=== PATIENT | male | born 1960 | race Caucasian/White ===

== ENCOUNTER 2020-04-24 06:45 | Inpatient (IN) ==
--- NOTE | 2020-04-13 14:43 | PAT Medication Instructions ---
Medication Instructions Date of Service April 13, 2020 Home Medications amlodipine 5 mg PO PM atorvastatin 20 mg PO QAM chlorthalidone 25 mg PO QAM ibuprofen 600 mg PO BID lisinopril 40 mg PO QAM ASK your surgeon for instructions ibuprofen 600 mg PO BID DO NOT take the morning of surgery lisinopril 40 mg PO QAM chlorthalidone 25 mg PO QAM Take morning of surgery With a small sip of water, OTHERWISE NOTHING TO EAT OR DRINK AFTER MIDNIGHT: atorvastatin 20 mg PO QAM Take evening before surgery amlodipine 5 mg PO PM Other Notes If you have any questions please call us at [phone] or [phone] or [phone] or [phone]
--- NOTE | 2020-04-18 09:55 | Anesthesiology Consultation ---
Date of Service April 18, 2020 Assessment & Plan (1) Encounter for pre-operative examination: Chart Review Chart Review: Acceptable Risk for Surgery (pending 04/18 Covid testing results ) and Patient seen in Pre Admission Testing Per PAT appt 04/20/20, patient denies recent travel Resides in [facility]. Works at [employer]- wears mask and social distances. Was tested in PAT today for Covid (six days prior to procedure). Pt was educated that both he and his household members need to social distances, self quarantine and wear mask in public. Teaching & Discussion Pre-Anesthesia Teaching/Discussion Notes: Instructed NPO after midnight before surgery,except medications with 15 cc of water. Medication instructions provided according to the [facility] guidelines. History Surgery Operation Date: 04/24/20 10:55 Proposed Procedures p Right Uni Compartment Knee Arthroplasty - Jonn Martínez DO Height/Weight Height: 5 ft 11 in Weight: 114.1 kg Allergies Allergy/AdvReac Type Severity Reaction Status Date / Time No Known Allergies Allergy Unverified 04/13/20 09:07 Medications Home Medications Medication Instructions Recorded Confirmed Last Taken amlodipine 5 mg PO PM 04/13/20 04/13/20 Unknown atorvastatin 20 mg PO QAM 04/13/20 04/13/20 Unknown chlorthalidone 25 mg PO QAM 04/13/20 04/13/20 Unknown ibuprofen 600 mg PO BID 04/13/20 04/13/20 Unknown lisinopril 40 mg PO QAM 04/13/20 04/13/20 Unknown Past Medical History Medical History Hyperlipidemia Hypertension Osteoarthritis Exercise / Class Metabolic Activity II 4-5 Yardwork/Stairs/Walk up hill (one flight of stairs - no chest pain or SOB ) Past Surgical History Surgical History History of partial knee replacement left History of tooth extraction Past Anesthesia History No Hx of Anesthesia Complications and No Family Hx of Anesthesia Complications History of PONV No Hx of PONV and No Hx of Motion Sickness Social History Smoking Status: Never smoker Do You Dip or Chew Tobacco: No (QUIT 10 YRS AGO OR MORE) Hx Alcohol Use: No Hx Substance Use: No substance use type: does not use Review of Systems Patient denies chest pain, shortness of breath, dyspnea on exertion, reflux, c ough, wheezing, palpitations. No hx of seizures, stroke, ME, apnea/snoring. No hx of blood clots or blood transfusions Physical Exam Vital Signs VITALS BP 121/81 P 66 TEMP 98.3 SP02 98% RESP 16 Constitutional no acute distress ENMT Mouth: no TMJ clicking Thyromental Distance: < 3.5 Finger Breadths (3.0) Mallampati Class: II Full upper denture Partial lower denture Neck + thick neck (mild ) and + limited neck extension (moderate ) Respiratory normal respiratory effort; no respiratory distress Auscultation: lungs clear to auscultation bilaterally; no wheezes Cardiovascular Rate/Rhythm: regular rate and regular rhythm Heart Sounds: no murmur Vessels: no carotid bruit Musculoskeletal Spine: no pain with cervical ROM Neurologic moves all extremities Psychiatric Orientation: alert Testing Laboratory Results 04/18/20 10:06 04/18/20 10:06 PT 10.7 Seconds (9.0-12.0) 04/18/20 10:06 INR 1.0 (0.9-1.1) 04/18/20 10:06 APTT 26.8 Seconds (21.0-31.0) 04/18/20 10:06 Blood Type A Positive 04/18/20 10:06 Antibody Screen NEGATIVE 04/18/20 10:06 Electrocardiogram Date: 04/18/20 Findings: + NSR @ (66) Chest X-Ray Date: 04/18/20 Findings: + NAD
--- NOTE | 2020-04-18 10:39 | XRay Report ---
XR chest Pre-admission PA/Lat HISTORY: Preop. COMPARISON: None. FINDINGS: The lungs are clear. Cardiac silhouette is normal in size. No pleural effusions. No pneumot horax. IMPRESSION: No acute process. ACT 112: Negative or not required by law. Electronically signed by: Jose Manuel Chauhan M.D. 04/18/2020 10:38 AM
[2020-04-18 10:54] LABS: Basophils # (auto) 0.02 K/uL (0-0.2); Basophils % (auto) 0.3 %; Eosinophils # (auto) 0.16 K/uL (0-0.5); Eosinophils % (auto) 2.2 %; Hemoglobin 14.4 g/dL (14.0-18.0); Immature Granulocytes # (auto) 0.01 K/uL (0.00-0.02); Immature Granulocytes % (auto) 0.1 %; Lymphocytes # (auto) 2.34 K/uL (1.2-3.4); Lymphocytes % (auto) 31.8 %; Mean Corpuscular Hemoglobin 30.1 pg (25-34); Mean Corpuscular Hgb Conc 33.5 g/dL (32-36); Mean Platelet Volume 9.3 fL (7.4-10.4); Monocytes # (auto) 0.49 K/uL (0.11-0.59); Monocytes % (auto) 6.7 %; Neutrophils # (auto) 4.33 K/uL (1.4-6.5); Neutrophils % (auto) 58.9 %; Platelet Count 250 K/uL (130-400); RDW Coefficient of Variation 13.2 % (11.5-14.5); RDW Standard Deviation 43.7 fL (36.4-46.3); Red Blood Count 4.78 M/uL (4.7-6.1); White Blood Count 7.35 K/uL (4.8-10.8)
[2020-04-18 11:01] LABS: BUN Creatinine Ratio 20.9 (10-20); Calcium 9.7 mg/dl (8.5-10.1); Creatinine Clr Calc Pharmacy 90.3 ml/min; Est GFR (African American) 80.6; Est GFR (Non-African American) 69.5; Potassium 3.9 mmol/L (3.5-5.1)
[2020-04-18 11:07] LABS: Partial Thromboplastin Time 26.8 Seconds (21.0-31.0); Prothrombin Time 10.7 Seconds (9.0-12.0)
--- NOTE | 2020-04-18 13:52 | Electrocardiogram Report ---
Test Reason : Blood Pressure : / mmHG Vent. Rate : 066 BPM Atrial Rate : 066 BPM P-R Int : 186 ms QRS Dur : 100 ms QT Int : 426 ms P-R-T Axes : 045 027 027 degrees QTc Int : 446 ms Normal sinus rhythm Normal ECG When compared with ECG of 08-OCT-2016 12:25, No significant change was found Confirmed by Juan Luis Nicholas ([id number]) on 04/18/2020 1:51:53 PM Referred By: Jonn Martínez Confirmed By:Juan Luis Nicholas
--- NOTE | 2020-04-23 16:40 | History & Physical Report ---
Date of Service April 23, 2020 Assessment & Plan (1) Osteoarthritis of knee: We will proceed with a right partial knee replacement surgery. Postoperatively he will be started on aspirin for DVT prophylaxis and kept overnight in the hospital for postoperative medical management. He plans to go to outpatient physical therapy in [place] in [place] upon discharge. Nestor is a low risk for joint placement surgery without any major comorbidities. Present on Admission?: Yes History of Present Illness Chief Complaint: Primary osteoarthritis of the right knee Primary Care Provider: Zaida Leroy PA-C Nestor is a pleasant 59-year-old male who is been dealing with chronic increasing right knee pain. X-rays and clinical examination have been diagnostic for primary osteoarthritis of the medial compartment of the right knee. After failing conservative treatment, he has elected to proceed with a right partial knee replacement surgery. He does have a history of a left unicompartmental knee arthroplasty done by myself in September 2016. He has done very well with that. Allergies Allergy/AdvReac Type Severity Reaction Status Date / Time No Known Allergies Allergy Unverified 04/13/20 09:07 Home Medications Home Medications Medication Instructions Recorded Confirmed Type amlodipine 5 mg PO PM 04/13/20 04/13/20 History atorvastatin 20 mg PO QAM 04/13/20 04/13/20 History chlorthalidone 25 mg PO QAM 04/13/20 04/13/20 History ibuprofen 600 mg PO BID 04/13/20 04/13/20 History lisinopril 40 mg PO QAM 04/13/20 04/13/20 History Past Med/Surg History Medical History Hyperlipidemia Hypertension Osteoarthritis Surgical History History of partial knee replacement left History of tooth extraction Social History Preferred Language: Sinhala Communication Ability: Effective [employer] Required: No Beliefs That Will Affect Care: None Current Living Situation: Spouse Feels Safe at Home: Yes Smoking Status: Never smoker Second Hand Exposure: No ; Hx Alcohol Use: No Hx Substance Use: No Review of Systems Review of Systems: All systems reviewed & are unremarkable except as noted in HPI & below Physical Exam Constitutional: WD/WN, vitals as above Eyes: PERRL, conjunctivae normal, anicteric sclerae ENMT: external ear and nose normal, oropharynx normal Neck: trachea midline, no thyromegaly Respiratory: normal respiratory effort Cardiovascular: RRR, no murmur, no edema Gastrointestinal (Abdomen): normal bowel sounds, soft, nontender, no hepatosplenomegaly Musculoskeletal: On physical examination of the right knee there is a trace effusion. There is near full range of motion and no evidence of instability. There is significant tenderness palpation along the medial and lateral joint lines and over the distal femoral condyles. Psychiatric: A+Ox3, euthymic affect Results & Data Results & Data ([facility]) Diagnostic Findings Radiographs of the right knee demonstrate advanced osteoarthritis with joint space narrowing osteophyte formation and [id number] articulation. PG Care Time/CCT Total # of Minutes Spent Total Time Spent with Patient: Total time spent is greater than 50% in coordination of care (as documented) at patient's floor/unit and/or counseling patient: Coding Level of Care Code 88739 Initial Inpt Care Lvl 3 Diagnoses Osteoarthritis of knee M17.10
[~2020-04-24 06:45] MED LIST: ACETAMINOPHEN 500 MG TAB PO SCH; CEFAZOLIN 2000MG 2,000 MG/15 ML SYR IV SCH; FAMOTIDINE 20 MG TAB PO SCH; GABAPENTIN 600 MG DOSE PO SCH; LR 15ML/HR IV SCH; LR 500ML BOLUS, THEN 15ML/HR IV SCH; LR 60ML/HR IV SCH; ROPIVACAINE 0.5% HCL/PF 150 MG, BUPIVACAINE 0.5% MPF 30 ML, EPINEPHrine 30MG/30ML (OR U... INSTIL SCH; TRANEXAMIC ACID 1,000 MG **IV Intra-op IV SCH; TRANEXAMIC ACID 1,000 MG **IV Pre-op IV SCH; dexAMETHasone 4 MG TAB PO SCH
--- NOTE | 2020-04-24 07:20 | History & Physical Bridge Note ---
Date of Service April 24, 2020 History & Physical Bridge Note I have examined the patient, reviewed the History & Physical and in the interval since the performance of the History & Physical I have noted the following changes of clinical significance: no changes noted
[2020-04-24] MEDS ORDERED: ATROPINE SULFATE 0.1 MG/ML 10ML SYR IV PRN (07:25)
[2020-04-24] MEDS ORDERED: fentaNYL citrate 100 MCG/2 ML VIAL IV PRN (07:25)
[2020-04-24] MEDS ORDERED: ePHEDrine sulfate 50 MG/ML AMP IV PRN (07:25)
[2020-04-24] MEDS ORDERED: ONDANSETRON INJ 2 MG/ML 2 ML VIAL IV PRN ×2 (07:25→12:39)
[2020-04-24] MEDS ORDERED: BUPIVACAINE 0.5 % 5 MG/1 ML PF 10ML VIAL ONE (07:28)
[2020-04-24] MEDS ORDERED: BUPIVACAINE 0.25% 30 ML VIAL ONE (07:28)
[2020-04-24] MEDS ORDERED: MIDAZOLAM HCL 1 MG/ML 2ML VIAL ONE ×3 (07:57→09:54)
[2020-04-24] MEDS ORDERED: LIDOCAINE HCL 2% 2 ML VIAL/AMP(20MG/ML) INFIL ONE (07:57)
[2020-04-24] MEDS ORDERED: PROPOFOL IV EMULSION 10 MG/ML 20 ML VIAL IV ONE (07:57)
[2020-04-24] MEDS ORDERED: ORTHO JOINT ANESTHETIC ONE (09:01)
--- NOTE | 2020-04-24 10:51 | Operative Report ---
PG Post Operative Report Pre & Post Diagnosis Operation Date: 04/24/20 08:50 Pre-Op Diagnosis: Right Knee Degenerative Joint Disease Post-Op Diagnosis: Right Knee Degenerative Joint Disease I identified the patient and participated in the time-out.: Yes Procedure Operation Date: 04/24/20 08:50 Actual Procedures p Right Knee Uni Compartment Arthroplasty(Right) - Jonn Martínez DO Surgeon Jonn Martínez DO Singing Messenger Jonn Betancourt PAC Estimated Blood Loss 10 Findings Consistent with Post-Op Diagnosis Specimens Right femoral and tibial bone Complications none Disposition Disposition: Recovery Room Indications Nestor is a pleasant 59-year-old male who is been dealing with bilateral knee pain. He had medial compartmental arthritis of both knees. He underwent a left unicompartmental knee arthroplasty in 2016. He is done extremely well with that . He has now elected proceed with a right unicompartmental knee arthroplasty. Description of Procedure Implants used: I used a [employer]omet Lyman unicompartmental knee arthroplasty system with a size medium femur, C tibia, and a size 4 mm mobile polyethylene bearing. All components were cemented in place with Palacos G cement. Nestor arrived [facility] for the above procedure. He was seen in the preoperative holding area and the operative extremity was identified and signed. He was given a preoperative antibiotic, TXA, a spinal anesthetic and an adductor nerve block. He was taken back to the operating room and laid on the table in the supine position. He was given basic sedation. The operative knee was then prepped and draped in sterile fashion. A timeout was done, and the patient and the operative extremity was properly identified. A midline incision was made from the superior pole of the patella down to the tibial tubercle. Dissection was taken down to the extensor mechanism and a subvastus arthrotomy was used. The medial retinaculum was released and a small portion of the fat pad was excised. The knee was then placed in a leg jarrett and the intra-articular portion of the knee was exposed. The medial meniscus was removed. The ACL was intact and the lateral compartment was inspected and there were no signs of any chondral damage. Several sizing spoons were used to measure the distal femur and it measured to be a size medium.The tibial saw guide was then placed externally over the shaft of the tibia. A 4 mm G clamp was used to clamp the spoon with the external tibial saw guide. 2 pins were placed. A reciprocating saw was then used to resect the tibia just medial to the apex of the medial tibial spine. An oscillating saw was then used to resect the tibial plateau. The tibial bone was then removed. The tibia measured to be a size C. The trochlea was then exposed. A 4 mm drill was sent down the center of the femoral canal followed by a long intramedullary fernandez. A line was then marked in the center of the distal medial femoral condyle. A femoral drill guide was then placed and the IM link was used to connect the intramedullary fernandez to the femoral drill guide. A 4 mm drill was used in the upper pole of the drill guide and a 6 mm drill was used in the lower pole of the drill guide. The drill guide was then removed. A posterior resection guide was then placed in the posterior femur was resected. A 0 spigot was then impacted in the 6 mm drill hole. The distal femur was then milled and osteophytes were removed. Femoral and tibial trials were then placed. A size 4 feeler gauge was used to measure the flexion gap in 100 of flexion. A size 2 feeler gauge was used to measure the extension gap in full extension. Trials were then removed and a size 2 spigot was then impacted in the 6 mm hole. The distal femur was once again milled. The anti- impingement guide was then impacted into place and an anterior mill was used to remove anterior bone and create clearance for the front of the bearing. The tibial template was then placed and the keel cut saw was used to resect for the keeled component. Trial components were then placed along with a size 4 mobile- bearing. The knee was brought through a full range of motion and felt to be stable. All trial components were then removed. Surrounding soft tissues were then injected with 50 cc of a pain control cocktail. Drill holes were placed in the distal femur to help with cement integration. The femoral and tibial components were then cemented in place with Palacos G cement. The size 4 mobile-bearing was then snapped into place. The knee was brought through a full range of motion and felt to be stable. The joint was then irrigated with normal saline solution. The tourniquet was deflated and hemostasis was obtained. The extensor mechanism was then closed with #1 Vicryl suture. Skin was closed with 2-0 Vicryl, 3-0V lock suture, and jalen. A compressive dressing was then placed. He was then transferred to a hospital bed and taken to the postanesthesia care unit in stable condition. He tolerated the procedure well. Jonn Betancourt PA-C, was present for the entire procedure. He was critical for patient positioning, prepping, draping, retraction exposure, wound closure and application of sterile dressing. I attest to the content of the Intraoperative Record and any orders documented therein. Any exceptions are noted below.
--- NOTE | 2020-04-24 11:45 | XRay Report ---
XR knee RT 1 or 2V routine CLINICAL HISTORY: Surgical Post Op COMPARISON: None. DISCUSSION: Anatomic alignment post medial joint compartment arthroplasty. Expected postoperative sof t tissue change. IMPRESSION: Anatomic alignment post medial joint compartment arthroplasty. ACT 112: Negative or not required by law. The above report was generated using voice recognition software. It may contain grammatical, syntax or spelling errors. Electronically signed by: Malachi Lockett M.D. 04/24/2020 11:44 AM
[2020-04-24] MEDS ORDERED: bisacodyL 10 MG SUPP PR PRN (12:39)
[2020-04-24] MEDS ORDERED: HYDROmorphone INJ 0.5 MG/0.5 ML SYR IV PRN (12:39)
[2020-04-24] MEDS ORDERED: NALOXONE HCL 0.4 MG/1 ML VIAL/CARP IV PRN (12:39)
[2020-04-24] MEDS ORDERED: OXYCODONE HCL IR 5 MG TAB (IMMEDIATE RELEASE) PO PRN (12:39)
[2020-04-24] MEDS ORDERED: MAGNESIUM HYDROXIDE SUSP 30 ML UDC PO PRN (12:39)
[2020-04-24] MEDS ORDERED: METOCLOPRAMIDE HCL INJ 5 MG/ML 2 ML VIAL IV PRN (12:39)
[2020-04-24] MEDS ORDERED: SODIUM CHLORIDE 0.9% 1000ML 1,000 ML IV SCH (12:39)
[2020-04-24] MEDS: KETOROLAC 30 MG/ML VIAL IV SCH ×2 (14:20→19:13)
[2020-04-24] MEDS: ACETAMINOPHEN 500 MG TAB PO SCH (16:00)
[2020-04-24] MEDS: CEFAZOLIN 2000MG 2,000 MG/15 ML SYR IV SCH (16:04)
--- NOTE | 2020-04-24 16:07 | Anesthesiology Progress Note ---
Date of Service April 24, 2020 Anesthesia Post Procedure Vital Signs Vital Signs: Temp Pulse Pulse Resp BP BP Pulse Ox 04/24/20 15:52 36.4 C L 74 16 131/79 95 04/24/20 14:35 74 16 142/88 H 95 04/24/20 13:37 73 16 155/98 H 97 04/24/20 13:09 36.4 C L 76 16 142/87 H 96 04/24/20 13:07 36.7 C 68 16 121/77 98 04/24/20 12:32 36.8 C 04/24/20 12:15 71 18 126/81 96 04/24/20 12:00 72 19 133/80 96 04/24/20 11:45 36.4 C L 70 12 128/81 97 04/24/20 11:35 72 14 133/81 95 04/24/20 11:25 77 15 131/77 97 04/24/20 11:16 36.7 C 84 16 127/78 97 04/24/20 07:33 172/98 H 04/24/20 07:08 37 C 82 20 159/109 H 98 Transfer of Care Handoff Completed per policy Notes Mental Status: alert / awake / arousable and participated in evaluation Patient Amnestic to Procedure: Yes Nausea / Vomiting: adequately controlled Pain: adequately controlled Airway Patency, RR, SpO2: stable & adequate BP & HR: stable & adequate Hydration State: stable & adequate Neuraxial Anesthesia: was administered and sensory block is resolving Anesthetic Complications: no major complications apparent and Pt Satisfied with anesthetic care
[2020-04-24] MEDS: DOCUSATE SODIUM 100 MG CAP PO SCH (20:14)
[2020-04-24] MEDS: ASPIRIN 81 MG ECTAB PO SCH (20:15)
[2020-04-24] MEDS ORDERED: SENNA 8.6 MG TAB PO SCH (21:00)
[2020-04-25] MEDS: CEFAZOLIN 2000MG 2,000 MG/15 ML SYR IV SCH (01:11)
[2020-04-25] MEDS: KETOROLAC 30 MG/ML VIAL IV SCH ×2 (01:11→06:10)
[2020-04-25 06:09] LABS: Hematocrit (blood only) 41.3 % (42-52); Hemoglobin 13.9 g/dL (14.0-18.0); Mean Corpuscular Hemoglobin 29.7 pg (25-34); Mean Corpuscular Hgb Conc 33.7 g/dL (32-36); Mean Corpuscular Volume 88.2 fL (80-100); Mean Platelet Volume 9.2 fL (7.4-10.4); Platelet Count 266 K/uL (130-400); RDW Standard Deviation 41.3 fL (36.4-46.3); Red Blood Count 4.68 M/uL (4.7-6.1); White Blood Count 19.21 K/uL (4.8-10.8)
[2020-04-25] MEDS: ACETAMINOPHEN 500 MG TAB PO SCH (06:09)
[2020-04-25 06:37] LABS: Calcium 9.1 mg/dl (8.5-10.1); Creatinine Clr Calc Pharmacy 85.3 ml/min; Est GFR (African American) 75.8; Est GFR (Non-African American) 65.4; Potassium 3.3 mmol/L (3.5-5.1)
--- NOTE | 2020-04-25 06:54 | Orthopedic Progress Note ---
Date of Service April 25, 2020 Assessment & Plan (1) Status post right partial knee replacement: Overall he is doing very well. Is not having much pain in the right knee. He will be seen by physical therapy today for ambulation and range of motion exercises. He is on aspirin for DVT prophylaxis. He can be discharged home later today. He will follow-up with orthopedics in 2 weeks. Present on Admission?: Yes Thaddeus Baez was seen and examined at bedside this morning. Overall he is doing very well. Is not having much pain in the right knee. He has been up and ambulating. He has no complaints. Physical Exam Musculoskeletal: On physical examination of the right knee, the dressing is clean and dry. He is sitting at bedside with his knee flexed to about 95 degrees. He is neurovascularly intact. Results & Data ([facility]) Vital Signs (Past 12 Hours) Vital Signs Temp Pulse Resp BP BP Pulse Ox 04/25/20 04:20 36.5 C 86 20 126/79 98 04/24/20 23:47 36.4 C L 71 20 144/78 H 96 04/24/20 20:19 36.5 C 67 16 139/82 97 Laboratory Results H & H 04/18/20 04/25/20 Range/Units 10:06 05:49 Hgb 14.4 13.9 L (14.0-18.0) g/dL Hct 43.0 41.3 L (42-52) % Coagulation 04/18/20 Range/Units 10:06 INR 1.0 (0.9-1.1) Diagnostic Findings Postoperative x-rays of the right knee show the prosthesis to be in anatomic alignment without any evidence of fracture, dislocation, or loosening. PG Care Time/CCT Total # of Minutes Spent Total Time Spent with Patient: Total time spent is greater than 50% in coordination of care (as documented) at patient's floor/unit and/or counseling patient: Coding Level of Care Code None Diagnoses Status post right partial knee replacement Z96.651
--- NOTE | 2020-04-25 06:55 | Discharge Summary ---
Date of Service April 25, 2020 Admission HPI Per Admitting Provider Nestor is a pleasant 59-year-old male who is been dealing with chronic increasing right knee pain. X-rays and clinical examination have been diagnostic for primary osteoarthritis of the medial compartment of the right k nee. After failing conservative treatment, he has elected to proceed with a right partial knee replacement surgery. He does have a history of a left unicompartmental knee arthroplasty done by myself in September 2016. He has done very well with that. Principal Diagnosis Right partial knee replacement Discharge Data Allergies Allergy/AdvReac Type Severity Reaction Status Date / Time No Known Allergies Allergy Verified 04/24/20 07:04 Consultations 04/24/20 12:39 Consult Case Management - Discharge Planning Routine Procedures Performed Operation Date: 04/24/20 08:50 Actual Procedures p Right Knee Uni Compartment Arthroplasty(Right) - Jonn Martínez DO Ordered Studies 04/24/20 05:00 US - OR guided needle placemen Routine Hospital Course (1) Status post right partial knee replacement: On April 24, 2020 Nestor arrived at [facility] and underwent a right partial knee replacement without complication. He had a spinal anesthetic. Postoperatively he was started on aspirin for DVT prophylaxis and transferred to the general orthopedic floors. His hospital course was uneventful. On postop day #1 his H&H was stable and his pain was well cont rolled. He was able to participate well with physical therapy doing ambulation and range of motion exercises. He was then discharged home. He will follow-up with orthopedics in 2 weeks. Total Time Total Time Spent Total Time Spent (In Minutes): 20 Discharge Plan Discharge Items Patient Disposition: Home - Home Health Services Reason For Visit: Right Knee Degenerative Joint Disease Discharge Diagnosis: Right partial knee replacement Activity: As commented below Non-emergency contact: Surgeon Call non-emergency contact if: your wound has increased redness and your wound has increased drainage Follow-up/Referrals: Zaida Leroy PA-C [Primary Care Provider] - Diet: Regular Addtl Attending Provider Instructions: Activity and Therapy Recommendations: * If you are using [facility] then therapy will be provided at your home until they feel you have accomplished all of your goals. * If you are using [facility] then Physical Therapy will be provided until they feel you are ready to start Outpatient Physical Therapy. * If you are not using home therapy then Outpatient Physical Therapy should start about 3-5 days from your day of surgery. Therapy will last about 6-10 weeks * It is important not to put a pillow under your knee when you are relaxing or sleeping. It is just as important to make sure you are getting your knee perfectly straight as it is to regain your knee bend. * You were shown a series of exercises in the hospital. Do these exercises three times each day including the exercises you were shown in physical therapy. * Get up and walk several times each day. For the first four weeks, try not to stand or walk for more than one hour at a time. If you do stand or walk for more than one hour, you will not hurt anything, but your leg will likely swell. * As you feel comfortable, you may change from the walker or crutches to a cane and then to independent walking. Medications: * Narcotic You will likely be sent home from the hospital with a prescription for the narcotic pain medication that worked best throughout your stay. * Aspirin Most patients will be required to take Aspirin 81mg twice a day for 6 weeks after surgery. This is obtained [id number] and a prescription is not necessary. * Other medications may be prescribed for specific circumstances. If you have any questions, please call the office at . * Resume previous home medications unless otherwise instructed TEDs/Elastic Stockings: The white elastic stockings help limit swelling and prevent blood clots from forming in your legs.~ The more you wear them, the more they work. Wear them for six weeks. Dressing Care: Leave the Silverlon dressing on for 7 days. After 7 days you may remove the dressing. IF the incision is not draining then you may leave the jalen open to air. If there is a little bit of drainage or if the jalen are getting stuck on your clothing then cover the incision with a dry dressing. The jalen will be removed at your 2 week follow-up appointment. Showering: You may shower with the Silverlon dressing in place. Do not scrub or soak the dressing. Pat it dry. After 7 days you may remove the Silverlon dressing and shower with the jalen exposed. Let the soapy shower water run over the jalen and pat them dry. Do not scrub or soak the incision. Things To Watch For: * Drainage from the incision site that occurs more than one week after your surgery. * Increased redness at the incision site. * Fever above 102 degrees Fahrenheit. * Unusual chest pain or shortness of breath. * Call [facility] at with any of the above problems Follow-Up Visit: Follow-up with Dr. Martínez's PA (Jonn Betancourt) 2-3 weeks after your day of surgery. He will remove your jalen and answer any questions. If you have any additional questions or concerns, Dr Martínez is usually in the office at the same time and will be available An appointment was probably scheduled when you signed-up for surgery in the office. If you have any questions call Office Instructions: More detailed instructions as well as Frequently Asked Questions were provided in a folder by our office when you signed-up for surgery. Please review these instructions when you get home. If you have any further questions or concerns, please feel free to call the office at [phone] Pending Studies at Discharge: No Stand-Alone Forms: My [facility], Smoking Cessation Medications and DC Order Prescriptions: New oxycodone 5 mg Tablet 5 mg PO Q4H PRN (Reason: pain) Qty: 30 RF: 0 aspirin 81 mg Tablet,Delayed Release (Dr/Ec) 81 mg PO BID 42 Days Qty: 0 RF: 0 Continued atorvastatin 20 mg Tablet 20 mg PO QAM RF: 0 chlorthalidone 25 mg Tablet 25 mg PO QAM RF: 0 amlodipine 5 mg Tablet 5 mg PO DAILY RF: 0 ibuprofen 200 mg Tablet 600 mg PO BID RF: 0 lisinopril 40 mg Tablet 40 mg PO QAM RF: 0 Discharge Orders: Discharge Order (Routine); Ordered 04/25/20 Ordered By: Jonn Martínez Admission Data Admit Date/Time: 04/24/20 11:19 Attending Provider: Jonn Martínez Admit Provider: Jonn Martínez Primary Care Provider: Zaida Leroy Coding Level of Care Code D/C Day Management <30 mins Diagnoses Status post right partial knee replacement Z96.651
[2020-04-25] MEDS: DOCUSATE SODIUM 100 MG CAP PO SCH (07:38)
[2020-04-25] MEDS: ASPIRIN 81 MG ECTAB PO SCH (07:38)
[2020-04-25] MEDS ORDERED: dexAMETHasone 4 MG TAB PO SCH (08:00)
--- NOTE | 2020-04-25 08:40 | Anesthesiology Progress Note ---
Date of Service April 25, 2020 Anesthesia Post Procedure Vital Signs Vital Signs: Temp Pulse Pulse Resp BP BP Pulse Ox 04/25/20 07:51 36.5 C 68 16 149/94 H 99 04/25/20 04:20 36.5 C 86 20 126/79 98 04/24/20 23:47 36.4 C L 71 20 144/78 H 96 04/24/20 20:19 36.5 C 67 16 139/82 97 04/24/20 15:52 36.4 C L 74 16 131/79 95 04/24/20 14:35 74 16 142/88 H 95 04/24/20 13:37 73 16 155/98 H 97 04/24/20 13:09 36.4 C L 76 16 142/87 H 96 04/24/20 13:07 36.7 C 68 16 121/77 98 04/24/20 12:32 36.8 C 04/24/20 12:15 71 18 126/81 96 04/24/20 12:00 72 19 133/80 96 04/24/20 11:45 36.4 C L 70 12 128/81 97 04/24/20 11:35 72 14 133/81 95 04/24/20 11:25 77 15 131/77 97 04/24/20 11:16 36.7 C 84 16 127/78 97 Notes Mental Status: alert / awake / arousable and participated in evaluation Patient Amnestic to Procedure: Yes Nausea / Vomiting: adequately controlled Pain: adequately controlled Airway Patency, RR, SpO2: stable & adequate BP & HR: stable & adequate Hydration State: stable & adequate Neuraxial Anesthesia: was administered and sensory block resolved Anesthetic Complications: no major complications apparent and Pt Satisfied with anesthetic care
[2020-04-25] MEDS ORDERED: AMLODIPINE BESYLATE 5 MG TAB PO SCH (09:00)
[2020-04-25] MEDS ORDERED: MULTIVITAMIN TAB PO SCH (09:00)
[2020-04-25] MEDS ORDERED: lisinopriL 40 MG TAB PO SCH (09:00)
[2020-04-25] MEDS ORDERED: CHLORTHALIDONE 25 MG TAB PO SCH (09:00)
[2020-04-25] MEDS ORDERED: ATORVASTATIN 20 MG TAB PO SCH (09:00)
== END 2020-04-25 10:32 | disposition home health service (06) | DRG 470 ==
LOC: ASU 06:45 → 3E 11:19

== ENCOUNTER 2020-06-06 05:29 | Inpatient (IN) ==
[2020-06-06] MEDS ORDERED: SODIUM CHLORIDE 0.9% 1000ML 1,000 ML IV ONE (05:45)
--- NOTE | 2020-06-06 05:50 | Emergency Department Note ---
History of Present Illness General Chief complaint: Abdominal Pain Stated complaint: SEVERE ABDOMINAL PAIN Time Seen by Provider: 06/06/20 05:37 Source: patient Mode of arrival: ambulatory Limitations: no limitations History of Present Illness Provider complaint: abdominal pain Onset (ago): hour(s) 1 Location: abdomen Radiation: back Severity: severe Pain Consistency: + constant Maximum Pain Intensity: 10 Current Pain Intensity: 10 Quality: + sharp Relieved By: + none Exacerbated By: + movement Associated symptoms: + fever/chills, + loss of appetite and + nausea/vomiting; no chest pain Treatments prior to arrival: none This is a 59-year-old male who presents with the abrupt onset of abdominal pain at 4 AM that woke him up out of sleep. Patient states the pain is severe, generalized, and radiates into his back. Patient feels chilled with it, yet is sweating, and feels nauseated but has not vomited. Patient states he began having some mild abdominal pain last week which did not go away so he called his family doctor. Patient was seen by his family doctor on Thursday and instructed to take colonoscopy prep to "clear him out" believing that his abdominal pain was secondary to constipation. Patient states he did have a watery stool earlier today, denies noting any blood. Patient states he has never had abdominal pain this severe. Patient denies any recent illness. Patient is 6 weeks postop from a right knee replacement. Patient states he has been using 2 baby aspirin a day as well as using some occasional ibuprofen. Patient denies noting any black or bloody stools. Denies any history of kidney dysfunction. Patient states he does take multiple medications for high blood pressure, denies any other cardiac conditions. Patient denies any accompanying chest pain or trouble breathing despite being obviously tachypneic. Patient brought back immediately from triage due to concern for his acuity due to his unwell appearance. Pt seen during a time of high acuity and national emergency pandemic while wea ring PPE. Home Medications Home Medications Medication Instructions Recorded Confirmed Type amlodipine 5 mg PO DAILY 04/13/20 06/06/20 History atorvastatin 20 mg PO QAM 04/13/20 06/06/20 History chlorthalidone 25 mg PO QAM 04/13/20 06/06/20 History ibuprofen 600 mg PO BID 04/13/20 06/06/20 History lisinopril 40 mg PO QAM 04/13/20 06/06/20 History Allergies Allergy/AdvReac Type Severity Reaction Status Date / Time No Known Allergies Allergy Verified 06/05/20 14:45 Past Med/Surg History Medical History (Updated 06/07/20 @ 03:39 by Romina Car DO) Acute renal failure (ARF) Diverticulitis Hyperlipidemia Hypertension Hypokalemia Osteoarthritis Pneumoperitoneum Surgical History (Updated 06/06/20 @ 12:58 by Mandie Mendoza RN) History of partial knee replacement left History of tooth extraction S/P colon resection (06/06/20) Exploratory Laparotomy, Abdominal wash out, Sigmoid Colon Resection and Priya procedure Dr. 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 and A total of 10 systems reviewed and were otherwise negative Physical Exam Vital Signs Vital Signs - 24 hr 06/06/20 05:32 06/06/20 05:39 06/06/20 06:12 Temperature 36.9 C Temperature Source Oral Pulse Rate 134 H 115 H Pulse Rate [Apical] Pulse Rate [Left Finger] Pulse Rate from SpO2 Sensor 115 H Pulse Rhythm [Apical] Pulse Rhythm [Left Finger] Pulse Strength [Left Finger] Respiratory Rate 30 H 32 H 23 Respiratory Effort / Characteristics Spontaneous Respiratory Depth Normal Respiratory Pattern Blood Pressure 107/75 119/75 Blood Pressure [Left Arm] Blood Pressure [Right Arm] Blood Pressure Mean 84 93 Blood Pressure Mean [Left Arm] Blood Pressure Mean [Right Arm] Blood Pressure Position [Left Arm] Blood Pressure Position [Right Arm] Pulse Oximetry 97 Oxygen Delivery Method Nasal Cannula Oxygen Flow Rate 4 Sepsis Recent Fever Within 48 Hours No Sepsis New/Unexplained Change in Mental Status No Sepsis Action Taken by Nursing No Action Required 06/06/20 06:30 06/06/20 07:00 06/06/20 07:30 Temperature Temperature Source Pulse Rate 113 H 116 H 111 H Pulse Rate [Apical] Pulse Rate [Left Finger] Pulse Rate from SpO2 Sensor 119 H 117 H 111 H Pulse Rhythm [Apical] Pulse Rhythm [Left Finger] Pulse Strength [Left Finger] Respiratory Rate 19 17 17 Respiratory Effort / Characteristics Respiratory Depth Respiratory Pattern Blood Pressure 116/70 124/74 101/66 Blood Pressure [Left Arm] Blood Pressure [Right Arm] Blood Pressure Mean 80 86 73 Blood Pressure Mean [Left Arm] Blood Pressure Mean [Right Arm] Blood Pressure Position [Left Arm] Blood Pressure Position [Right Arm] Pulse Oximetry 98 99 97 Oxygen Delivery Method Nasal Cannula Oxygen Flow Rate 4 4 Sepsis Recent Fever Within 48 Hours Sepsis New/Unexplained Change in Mental Status Sepsis Action Taken by Nursing 06/06/20 07:40 06/06/20 07:45 06/06/20 07:52 Temperature Temperature Source Pulse Rate 112 H 113 H 112 H Pulse Rate [Apical] Pulse Rate [Left Finger] Pulse Rate from SpO2 Sensor 112 H 112 H Pulse Rhythm [Apical] Pulse Rhythm [Left Finger] Pulse Strength [Left Finger] Respiratory Rate 13 18 17 Respiratory Effort / Characteristics Respiratory Depth Respiratory Pattern Blood Pressure 111/67 110/68 100/65 Blood Pressure [Left Arm] Blood Pressure [Right Arm] Blood Pressure Mean 72 78 81 Blood Pressure Mean [Left Arm] Blood Pressure Mean [Right Arm] Blood Pressure Position [Left Arm] Blood Pressure Position [Right Arm] Pulse Oximetry 96 96 97 Oxygen Delivery Method Oxygen Flow Rate Sepsis Recent Fever Within 48 Hours Sepsis New/Unexplained Change in Mental Status Sepsis Action Taken by Nursing 06/06/20 07:56 06/06/20 08:13 06/06/20 13:19 Temperature 37.2 C 36.8 C Temperature Source Oral Temporal Artery Scan Pulse Rate Pulse Rate [Apical] 104 H Pulse Rate [Left Finger] 112 H Pulse Rate from SpO2 Sensor Pulse Rhythm [Apical] Regular Pulse Rhythm [Left Finger] Regular Pulse Strength [Left Finger] Normal Respiratory Rate 18 20 Respiratory Effort / Characteristics Non-Labored Spontaneous Non-Labored Spontaneous Respiratory Depth Normal Normal Respiratory Pattern Regular Regular Blood Pressure Blood Pressure [Left Arm] 115/81 Blood Pressure [Right Arm] 107/63 Blood Pressure Mean Blood Pressure Mean [Left Arm] 92 Blood Pressure Mean [Right Arm] 77 Blood Pressure Position [Left Arm] Lying Blood Pressure Position [Right Arm] Lying Pulse Oximetry 96 99 Oxygen Delivery Method Room Air Nasal Cannula Oxymask Oxygen Flow Rate 4 10 Sepsis Recent Fever Within 48 Hours Sepsis New/Unexplained Change in Mental Status Sepsis Action Taken by Nursing GENERAL: alert, ill appearing, well nourished, severe distress, non-toxic, ashen in appearance with cyanotic distal extremities, cannot remain still due to pain EYE EXAM: normal conjunctiva, PERRL and EOM's grossly intact OROPHARYNX: no exudate, no erythema, lips, buccal mucosa, and tongue normal and mucous membranes are moist NECK: supple, no nuchal rigidity, no adenopathy, non-tender LUNGS: Clear to auscultation. Normal chest wall mechanics, no w/r/r, tachypneic, cannot obtain pulse ox HEART: no murmurs, S1 normal and S2 normal, tachycardia, appears to be sinus tach at 130 ABDOMEN: abdomen soft, generalized abdominal discomfort with palpation, patient actively splinting, normo-active bowel sounds, no masses. BACK: Back is symmetrical on inspection and there is no deformity, no midline tenderness, no CVA tenderness. SKIN: no rashes and no bruising UPPER EXTREMITIES: upper extremities are grossly normal. FROM, nml pulses b/l. Radial pulses palpable bilaterally, delayed cap refill due to nail bed cyanosis LOWER EXTREMITIES: No pitting edema. FROM, nml pulses b/l. Healing incision noted to right knee, no joint effusion, no distal edema NEURO EXAM: Normal sensorium, cranial nerves II-XII grossly intact, normal speech, no gross weakness of arms, no gross weakness of legs. Gross sensation intact. Course Course 0545: After my initial assessment agreed the ultrasound machine given patient's poor appearance and my high concern for his acuity and attempted to evaluate his aorta at bedside, this could not be visualized due to the amount of splinting patient had with any palpation against his abdomen, in addition to bowel gas. I did briefly get a look at the patient's gallbladder which did not show any obvious cholelithiasis, and no evidence of fluid in Morison's pouch to suggest hemoperitoneum. Images seen were suboptimal given patient continued to move throughout the exam, will send patient immediately to CT. Patient denies any history of kidney problems. 0557: Labs obtain, IV line started, patient heading to CT. Patient still tachycardic, tachypneic, pain slightly improved after fentanyl. 0608: Patient states pain slightly improved after fentanyl although still very uncomfortable. Patient is still tachycardic. Pulse ox finally able to be obtained and is in the 90s, patient is still slightly tachypneic. 0632: Case discussed with Dr. Lockett, radiology. 0640: Discussed with Dr. Corea. 0645: Pt and updated on results and plan. 0647: Dr. Corea now at bedside. 0704: Dr. Corea states he will plan on taking the patient to the operating room. He will send his PA down to add orders and perform a history and physical. 0750: Vital signs stable, patient still mildly tachycardic, tachypnea has improved and patient states his pain is improved with additional pain medication. IV Zosyn was given and is completed. Administered Medications Acetaminophen (Acetaminophen 1000 Mg/100 Ml Iv) 1,000 mg IV Q8H LOYD Stop: 06/09/20 21:59 Last Admin: 06/06/20 21:58 Dose: 1,000 mg Documented by: [id number] Heparin Sodium (Porcine) (Heparin Sod 5,000 Unit/0.5 Ml Vial) 5,000 units SQ Q8 LOYD Stop: 07/06/20 21:59 Last Admin: 06/06/20 21:58 Dose: 5,000 units Documented by: [id number] Cosigned by: [id number] Lactated Ringer's (Lr) 1,000 mls @ 150 mls/hr IV .Q6H40M LOYD Stop: 07/06/20 15:58 Last Admin: 06/07/20 02:03 Dose: 150 mls/hr Documented by: [id number] Infusion: 06/07/20 02:03 Dose: 150 mls/hr Documented by: [id number] Admin: 06/06/20 19:22 Dose: 150 mls/hr Documented by: [id number] Infusion: 06/06/20 19:22 Dose: 150 mls/hr Documented by: [id number] Admin: 06/06/20 16:23 Dose: 150 mls/hr Documented by: [id number] Piperacillin Sod/Tazobactam (Sod 4.5 gm/ Dextrose) 120 mls @ 30 mls/hr IV Q8H LOYD; Protocol Stop: 06/16/20 21:59 Last Infusion: 06/07/20 02:01 Dose: 0 mls/hr Documented by: [id number] Admin: 06/06/20 21:58 Dose: 30 mls/hr Documented by: [id number] Pantoprazole Sodium 40 mg/ (Syringe) 10 mls @ 5 mls/min IV DAILY@1100 LOYD Stop: 07/06/20 16:44 Last Admin: 06/06/20 19:47 Dose: 5 mls/min Documented by: [id number] Morphine Sulfate (Morphine Sulfate 4 Mg/Ml 1 Ml Carp\\Vial) 4 mg IV Q2H PRN PRN Reason: Pain Stop: 06/20/20 15:58 Last Admin: 06/07/20 00:18 Dose: 4 mg Documented by: [id number] Admin: 06/06/20 22:04 Dose: 4 mg Documented by: [id number] Admin: 06/06/20 19:47 Dose: 4 mg Documented by: [id number] Admin: 06/06/20 16:23 Dose: 4 mg Documented by: [id number] Discontinued Medications Acetaminophen (Acetaminophen 1000 Mg/100 Ml Iv) Confirm Administered Dose 1,000 mg IV .STK-MED ONE Stop: 06/06/20 14:13 Last Admin: 06/06/20 15:20 Dose: Not Given Documented by: [id number] Acetaminophen (Acetaminophen 1000 Mg/100 Ml Iv) 1,000 mg IV ONCE ONE Stop: 06/06/20 14:14 Last Admin: 06/06/20 14:14 Dose: 1,000 mg Documented by: [id number] Bacitracin (Bacitracin Inj 50,000 Unit Vial) Confirm Administered Dose 50,000 units .ROUTE .STK-MED ONE Stop: 06/06/20 14:28 Last Admin: 06/06/20 16:01 Dose: Not Given Documented by: [id number] Bupivacaine HCl (Bupivacaine 0.5 % 5 Mg/1 Ml Mpf 30ml Vial) Confirm Administered Dose 30 ml .ROUTE .STK-MED ONE Stop: 06/06/20 14:29 Last Admin: 06/06/20 16:01 Dose: Not Given Documented by: [id number] Fentanyl Citrate (Fentanyl Citrate 100 Mcg/2 Ml Vial) 100 mcg IV Q15M PRN PRN Reason: Pain Stop: 06/20/20 05:44 Last Admin: 06/06/20 07:51 Dose: 100 mcg Documented by: [id number] Admin: 06/06/20 06:38 Dose: 100 mcg Documented by: [id number] Admin: 06/06/20 06:05 Dose: 100 mcg Documented by: [id number] Fentanyl Citrate (Fentanyl Citrate 100 Mcg/2 Ml Vial) 25 mcg IV NOW ONE Stop: 06/06/20 09:26 Last Admin: 06/06/20 09:31 Dose: 25 mcg Documented by: [id number] Fentanyl Citrate (Fentanyl Citrate 100 Mcg/2 Ml Vial) 25 mcg IV Q5M PRN PRN Reason: PACU Use Only-Pain Stop: 06/06/20 21:00 Last Admin: 06/06/20 13:48 Dose: 25 mcg Documented by: [id number] Admin: 06/06/20 13:43 Dose: 25 mcg Documented by: [id number] Admin: 06/06/20 13:38 Dose: 25 mcg Documented by: [id number] Admin: 06/06/20 13:33 Dose: 25 mcg Documented by: [id number] Hydromorphone HCl (Hydromorphone Inj 1 Mg/Ml Syringe) 0.25 mg IV Q5M PRN PRN Reason: PACU Use Only-Pain Stop: 06/06/20 21:00 Last Admin: 06/06/20 14:38 Dose: 0.25 mg Documented by: [id number] Admin: 06/06/20 14:32 Dose: 0.25 mg Documented by: [id number] Admin: 06/06/20 14:25 Dose: 0.25 mg Documented by: [id number] Admin: 06/06/20 14:15 Dose: 0.25 mg Documented by: [id number] Admin: 06/06/20 14:08 Dose: 0.25 mg Documented by: [id number] Admin: 06/06/20 14:03 Dose: 0.25 mg Documented by: [id number] Admin: 06/06/20 13:58 Dose: 0.25 mg Documented by: [id number] Admin: 06/06/20 13:53 Dose: 0.25 mg Documented by: [id number] Sodium Chloride (Nss 1000ml) 1,000 mls @ 999 mls/hr IV .Q1H1M ONE Stop: 06/06/20 06:45 Last Infusion: 06/06/20 07:30 Dose: 0 mls/hr Documented by: [id number] Admin: 06/06/20 06:05 Dose: 999 mls/hr Documented by: [id number] Pantoprazole Sodium 40 mg/ (Syringe) 10 mls @ 5 mls/min IV NOW ONE Stop: 06/06/20 06:00 Last Admin: 06/06/20 06:38 Dose: 5 mls/min Documented by: [id number] Piperacillin Sod/Tazobactam Sod (Zosyn) 4.5 gm in 120 mls @ 240 mls/hr IV NOW ONE Stop: 06/06/20 07:02 Last Infusion: 06/06/20 07:30 Dose: 0 mls/hr Documented by: [id number] Admin: 06/06/20 06:38 Dose: 240 mls/hr Documented by: [id number] Potassium Chloride 10 meq/ (Sodium Chloride) 1,005 mls @ 200 mls/hr IV .Q5H2M LOYD Stop: 07/06/20 06:59 Last Admin: 06/06/20 15:19 Dose: Not Given Documented by: [id number] Infusion: 06/06/20 15:19 Dose: 0 mls/hr Documented by: [id number] Admin: 06/06/20 07:12 Dose: 200 mls/hr Documented by: [id number] Potassium Chloride (K Galen / Wtr) 10 meq in 100 mls @ 100 mls/hr IV Q1H LOYD Stop: 06/06/20 12:14 Last Infusion: 06/06/20 16:06 Dose: 0 mls/hr Documented by: [id number] Admin: 06/06/20 10:29 Dose: 200 mls/hr Documented by: [id number] Infusion: 06/06/20 10:29 Dose: 0 mls/hr Documented by: [id number] Admin: 06/06/20 09:56 Dose: 200 mls/hr Documented by: [id number] Infusion: 06/06/20 09:55 Dose: 0 mls/hr Documented by: [id number] Admin: 06/06/20 09:20 Dose: 200 mls/hr Documented by: [id number] Infusion: 06/06/20 09:20 Dose: 0 mls/hr Documented by: [id number] Admin: 06/06/20 08:27 Dose: 100 mls/hr Documented by: [id number] Lactated Ringer's (Lr) 1,000 mls @ 999 mls/hr IV .Q1H1M ONE Stop: 06/06/20 10:45 Last Infusion: 06/06/20 16:06 Dose: 0 mls/hr Documented by: [id number] Admin: 06/06/20 09:45 Dose: 999 mls/hr Documented by: [id number] Piperacillin Sod/Tazobactam (Sod 4.5 gm/ Dextrose) 120 mls @ 200 mls/hr IV NOW ONE; Protocol Stop: 06/06/20 16:50 Last Infusion: 06/06/20 17:20 Dose: 0 mls/hr Documented by: [id number] Admin: 06/06/20 16:26 Dose: 200 mls/hr Documented by: [id number] Potassium Chloride (K Galen / Wtr) 10 meq in 100 mls @ 100 mls/hr IV Q1H LOYD Stop: 07/06/20 18:44 Last Admin: 06/07/20 01:54 Dose: Not Given Documented by: [id number] Infusion: 06/07/20 01:52 Dose: 0 mls/hr Documented by: [id number] Admin: 06/07/20 00:39 Dose: 100 mls/hr Documented by: [id number] Infusion: 06/07/20 00:39 Dose: 100 mls/hr Documented by: [id number] Admin: 06/06/20 23:39 Dose: 100 mls/hr Documented by: [id number] Infusion: 06/06/20 23:39 Dose: 100 mls/hr Documented by: [id number] Admin: 06/06/20 22:39 Dose: 100 mls/hr Documented by: [id number] Infusion: 06/06/20 22:39 Dose: 100 mls/hr Documented by: [id number] Admin: 06/06/20 21:39 Dose: 100 mls/hr Documented by: [id number] Infusion: 06/06/20 21:39 Dose: 100 mls/hr Documented by: [id number] Admin: 06/06/20 20:39 Dose: 100 mls/hr Documented by: [id number] Infusion: 06/06/20 20:39 Dose: 100 mls/hr Documented by: [id number] Admin: 06/06/20 19:39 Dose: 100 mls/hr Documented by: [id number] Ioversol (Optiray 320 125ml) 125 ml IV ONCE ONE Stop: 06/06/20 05:56 Last Admin: 06/06/20 05:55 Dose: 119 ml Documented by: [id number] Critical Care Time Critical Care Time: Yes Total Critical Care Time: 51 Critical care of 51 min performed to assess and manage high likelihood of life- threatening sepsis and pneumoperitoneum, involving labs and imaging performed with assessment to evaluate sepsis diagnosis with frequent reassessment. This time includes bedside time, treatment discussions with patient/famil y/consultants, documentation time and excludes procedure time. Medical Decision Making Differential Diagnosis Differential diagnoses includes but is not limited to gastritis, peptic ulcer disease, GERD, gallbladder disease, pancreatitis, small bowel obstruction, acute coronary syndrome, pericarditis, ischemic bowel, irritable bowel disease, irritable bowel syndrome, appendicitis, diverticulitis, malignancy, hernia, urin jordyn tract infection, torsion, [/ectopic (if female)], perforation, trauma, infectious. Medical Records Attestation: I reviewed the patient's medical records. Home Medications Current Medication List: was personally reviewed by me Laboratory Data Attestation: I reviewed the patient's lab results. Result diagrams: 06/06/20 16:54 06/06/20 16:54 Lab Results 06/06/20 06/06/20 06/06/20 Range/Units 05:54 05:55 05:55 WBC 19.45 H (4.8-10.8) K/uL RBC 4.84 (4.7-6.1) M/uL Hgb 14.4 (14.0-18.0) g/dL POC Hgb 16.0 (14.0-18.0) g/dl Hct 42.5 (42-52) % POC Hct 47 (42-52) % MCV 87.8 (80-100) fL MCH 29.8 (25-34) pg MCHC 33.9 (32-36) g/dL RDW Std Deviation 43.7 (36.4-46.3) fL RDW Coeff of Veronique 13.5 (11.5-14.5) % Plt Count 369 (130-400) K/uL MPV 9.0 (7.4-10.4) fL Immature Gran % (Auto) 0.6 % Neut % (Auto) 81.2 % Lymph % (Auto) 14.2 % [place] % (Auto) 3.4 % Eos % (Auto) 0.4 % Baso % (Auto) 0.2 % Neut # (Auto) 15.81 H (1.4-6.5) K/uL Lymph # (Auto) 2.76 (1.2-3.4) K/uL [place] # (Auto) 0.67 H (0.11-0.59) K/uL Eos # (Auto) 0.07 (0-0.5) K/uL Baso # (Auto) 0.03 (0-0.2) K/uL Immature Gran # (Auto) 0.11 H (0.00-0.02) K/uL PT 11.4 (9.0-12.0) Seconds INR 1.1 (0.9-1.1) POC Sodium 140 (135-144) mmol/L Sodium (136-145) mmol/L POC Potassium 2.2 L* (3.3-5.0) mmol/L Potassium (3.5-5.1) mmol/L POC Chloride 97 L (101-112) mmol/L Chloride (98-107) mmol/L Carbon Dioxide (21-32) mmol/L POC Total CO2 23 L (24-31) mmol/L Anion Gap (3-11) POC Anion Gap 22.0 (16-25) mmol/L POC BUN 45 H (7-18) mg/dl BUN (7-18) mg/dl Creatinine (0.6-1.4) mg/dl POC Creatinine 3.6 H (0.6-1.3) mg/dl Est Cr Clr Drug Dosing Est GFR ( Amer) Est GFR (Non-Af Amer) BUN/Creatinine Ratio (10-20) Glucose (70-99) mg/dl POC Glucose (other) 174 H (70-99) mg/dl Lactate (0.4-2.0) mmol/L Calcium (8.5-10.1) mg/dl POC Ioniz Calcium Julio Cesar 1.16 (1.12-1.32) mmol/l Phosphorus (2.5-4.9) mg/dl Magnesium (1.8-2.4) mg/dl Total Bilirubin (0.2-1) mg/dl AST (15-37) U/L ALT (12-78) U/L Alkaline Phosphatase (45-117) U/L Troponin I (0-0.045) ng/ml Total Protein (6.4-8.2) gm/dl Albumin (3.4-5.0) gm/dl Globulin (2.5-4.0) gm/dl Albumin/Globulin Ratio (0.9-2) Lipase (73-393) U/L Blood Type Antibody Screen 06/06/20 06/06/20 06/06/20 Range/Units 05:55 05:55 05:55 WBC (4.8-10.8) K/uL RBC (4.7-6.1) M/uL Hgb (14.0-18.0) g/dL POC Hgb (14.0-18.0) g/dl Hct (42-52) % POC Hct (42-52) % MCV (80-100) fL MCH (25-34) pg MCHC (32-36) g/dL RDW Std Deviation (36.4-46.3) fL RDW Coeff of Veronique (11.5-14.5) % Plt Count (130-400) K/uL MPV (7.4-10.4) fL Immature Gran % (Auto) % Neut % (Auto) % Lymph % (Auto) % [place] % (Auto) % Eos % (Auto) % Baso % (Auto) % Neut # (Auto) (1.4-6.5) K/uL Lymph # (Auto) (1.2-3.4) K/uL [place] # (Auto) (0.11-0.59) K/uL Eos # (Auto) (0-0.5) K/uL Baso # (Auto) (0-0.2) K/uL Immature Gran # (Auto) (0.00-0.02) K/uL PT (9.0-12.0) Seconds INR (0.9-1.1) POC Sodium (135-144) mmol/L Sodium 136 (136-145) mmol/L POC Potassium (3.3-5.0) mmol/L Potassium 2.2 L* (3.5-5.1) mmol/L POC Chloride (101-112) mmol/L Chloride 98 (98-107) mmol/L Carbon Dioxide 23 (21-32) mmol/L POC Total CO2 (24-31) mmol/L Anion Gap 15.0 H (3-11) POC Anion Gap (16-25) mmol/L POC BUN (7-18) mg/dl BUN 49 H (7-18) mg/dl Creatinine 3.59 H (0.6-1.4) mg/dl POC Creatinine (0.6-1.3) mg/dl Est Cr Clr Drug Dosing Not Reportable Est GFR ( Amer) 20.6 Est GFR (Non-Af Amer) 17.7 BUN/Creatinine Ratio 13.5 (10-20) Glucose 176 H (70-99) mg/dl POC Glucose (other) (70-99) mg/dl Lactate 6.9 H* (0.4-2.0) mmol/L Calcium 9.6 (8.5-10.1) mg/dl POC Ioniz Calcium Julio Cesar (1.12-1.32) mmol/l Phosphorus 5.9 H (2.5-4.9) mg/dl Magnesium 2.4 (1.8-2.4) mg/dl Total Bilirubin 0.5 (0.2-1) mg/dl AST 16 (15-37) U/L ALT 33 (12-78) U/L Alkaline Phosphatase 121 H (45-117) U/L Troponin I < 0.015 (0-0.045) ng/ml Total Protein 8.6 H (6.4-8.2) gm/dl Albumin 3.3 L (3.4-5.0) gm/dl Globulin 5.3 H (2.5-4.0) gm/dl Albumin/Globulin Ratio 0.6 L (0.9-2) Lipase 92 (73-393) U/L Blood Type Antibody Screen 06/06/20 06/06/20 06/06/20 Range/Units 09:07 09:30 10:07 WBC (4.8-10.8) K/uL RBC (4.7-6.1) M/uL Hgb (14.0-18.0) g/dL POC Hgb 10.5 L (14.0-18.0) g/dl Hct (42-52) % POC Hct 31 L (42-52) % MCV (80-100) fL MCH (25-34) pg MCHC (32-36) g/dL RDW Std Deviation (36.4-46.3) fL RDW Coeff of Veronique (11.5-14.5) % Plt Count (130-400) K/uL MPV (7.4-10.4) fL Immature Gran % (Auto) % Neut % (Auto) % Lymph % (Auto) % [place] % (Auto) % Eos % (Auto) % Baso % (Auto) % Neut # (Auto) (1.4-6.5) K/uL Lymph # (Auto) (1.2-3.4) K/uL [place] # (Auto) (0.11-0.59) K/uL Eos # (Auto) (0-0.5) K/uL Baso # (Auto) (0-0.2) K/uL Immature Gran # (Auto) (0.00-0.02) K/uL PT (9.0-12.0) Seconds INR (0.9-1.1) POC Sodium 139 (135-144) mmol/L Sodium (136-145) mmol/L POC Potassium 2.6 L (3.3-5.0) mmol/L Potassium (3.5-5.1) mmol/L POC Chloride 102 (101-112) mmol/L Chloride (98-107) mmol/L Carbon Dioxide (21-32) mmol/L POC Total CO2 21 L (24-31) mmol/L Anion Gap (3-11) POC Anion Gap 19.0 (16-25) mmol/L POC BUN 36 H (7-18) mg/dl BUN (7-18) mg/dl Creatinine (0.6-1.4) mg/dl POC Creatinine 2.7 H (0.6-1.3) mg/dl Est Cr Clr Drug Dosing Est GFR ( Amer) Est GFR (Non-Af Amer) BUN/Creatinine Ratio (10-20) Glucose (70-99) mg/dl POC Glucose (other) 131 H (70-99) mg/dl Lactate 3.1 H* (0.4-2.0) mmol/L Calcium (8.5-10.1) mg/dl POC Ioniz Calcium Julio Cesar 1.18 (1.12-1.32) mmol/l Phosphorus (2.5-4.9) mg/dl Magnesium (1.8-2.4) mg/dl Total Bilirubin (0.2-1) mg/dl AST (15-37) U/L ALT (12-78) U/L Alkaline Phosphatase (45-117) U/L Troponin I (0-0.045) ng/ml Total Protein (6.4-8.2) gm/dl Albumin (3.4-5.0) gm/dl Globulin (2.5-4.0) gm/dl Albumin/Globulin Ratio (0.9-2) Lipase (73-393) U/L Blood Type A Positive Antibody Screen NEGATIVE 06/06/20 Range/Units 10:24 WBC (4.8-10.8) K/uL RBC (4.7-6.1) M/uL Hgb (14.0-18.0) g/dL POC Hgb (14.0-18.0) g/dl Hct (42-52) % POC Hct (42-52) % MCV (80-100) fL MCH (25-34) pg MCHC (32-36) g/dL RDW Std Deviation (36.4-46.3) fL RDW Coeff of Veronique (11.5-14.5) % Plt Count (130-400) K/uL MPV (7.4-10.4) fL Immature Gran % (Auto) % Neut % (Auto) % Lymph % (Auto) % [place] % (Auto) % Eos % (Auto) % Baso % (Auto) % Neut # (Auto) (1.4-6.5) K/uL Lymph # (Auto) (1.2-3.4) K/uL [place] # (Auto) (0.11-0.59) K/uL Eos # (Auto) (0-0.5) K/uL Baso # (Auto) (0-0.2) K/uL Immature Gran # (Auto) (0.00-0.02) K/uL PT (9.0-12.0) Seconds INR (0.9-1.1) POC Sodium (135-144) mmol/L Sodium (136-145) mmol/L POC Potassium (3.3-5.0) mmol/L Potassium 2.8 L D (3.5-5.1) mmol/L POC Chloride (101-112) mmol/L Chloride (98-107) mmol/L Carbon Dioxide (21-32) mmol/L POC Total CO2 (24-31) mmol/L Anion Gap (3-11) POC Anion Gap (16-25) mmol/L POC BUN (7-18) mg/dl BUN (7-18) mg/dl Creatinine (0.6-1.4) mg/dl POC Creatinine (0.6-1.3) mg/dl Est Cr Clr Drug Dosing Est GFR ( Amer) Est GFR (Non-Af Amer) BUN/Creatinine Ratio (10-20) Glucose (70-99) mg/dl POC Glucose (other) (70-99) mg/dl Lactate (0.4-2.0) mmol/L Calcium (8.5-10.1) mg/dl POC Ioniz Calcium Julio Cesar (1.12-1.32) mmol/l Phosphorus (2.5-4.9) mg/dl Magnesium (1.8-2.4) mg/dl Total Bilirubin (0.2-1) mg/dl AST (15-37) U/L ALT (12-78) U/L Alkaline Phosphatase (45-117) U/L Troponin I (0-0.045) ng/ml Total Protein (6.4-8.2) gm/dl Albumin (3.4-5.0) gm/dl Globulin (2.5-4.0) gm/dl Albumin/Globulin Ratio (0.9-2) Lipase (73-393) U/L Blood Type Antibody Screen Imaging Data Radiologist's Impression: CT angio chest dissec wo/w con CT DOSE: HISTORY: Pain abd pain into back TECHNIQUE: Multiaxial CT images of the chest, abdomen, and pelvis were performed both before and after the intravenous administration of contrast to evaluate the aorta. Maximal intensity projection images were also obtained. A dose lowering technique was utilized adhering to the principles of ALARA. COMPARISON STUDY: None. FINDINGS: The thoracic aorta shows no evidence for aneurysm or dissection. The pulmonary vasculature enhances appropriately. There are findings of mild bibasilar atelectasis. Lungs otherwise appear clear. Limited evaluation the upper abdomen shows free intraperitoneal air IMPRESSION: 1. Normal thoracic aorta. 2. No evidence for pulmonary embolus. 3. Free intraperitoneal air within the abdomen 4. This report was phoned to Dr. car in the emergency room ACT 112: Negative or not required by law. The above report was generated using voice recognition software. It may contain grammatical, syntax or spelling errors. Electronically signed by: Malachi Lockett M.D. 06/06/2020 6:34 AM Study: CT abdomen and pelvis angiogram HISTORY: Pain. FINDINGS: The arterial structures of the abdomen and pelvis show considerable atherosclerotic changes throughout. There is mild narrowing of the origin of the celiac axis and superior mesenteric artery. High degree of stenotic change is not felt to be present. Free air is noted within the abdomen as well as pelvis. Fatty infiltration of liver is noted. Pancreas and spleen are unremarkable. Kidneys demonstrate several cysts. Negative for hydronephrosis. There are findings of acute diverticulitis involving the mid to distal descending colon as well as proximal to mid sigmoid. Pericolonic infiltrative change is present. Medial to the descending colon is an air-containing phlegmon is-type structure measuring 5.7 x 6.0 cm. This appears represent a local perforation and possibly early phlegmon formation. No well-defined drainable abscess or collection is a not identified by percutaneous status. Chronic lower sigmoid diverticulosis is present. There is a small amount of free fluid within the pelvic cul-de-sac. The appendix is normal. The bowel pattern is nonobstructive. IMPRESSION: 1. Free intraperitoneal air involving the abdomen as well as pelvis. 2. This appears to originate from perforated diverticulitis involving the distal descending as well as proximal to mid sigmoid colons. 3. A 6 cm air and infiltrative collection medial to the distal descending colon suggesting perforated developing phlegmon. 4. No evidence for percutaneously drainable abscess or collection at this time. 5. Nonobstructive bowel pattern. 6. Small amount of free fluid within the pelvic cul-de-sac. 7. Atherosclerotic changes throughout the arterial structures of the abdomen and pelvis with no evidence for high-grade stenosis. 8. This report was phoned to Dr Car in the emergency room Electronically signed by: Malachi Lockett M.D. ECG Data Attestation: I personally reviewed and interpreted this ECG as follows: Indication: + abdominal pain Rate (beats per minute): 133 Rhythm: + sinus tachycardia ECG Intervals/blocks: + Normal QRS and + Prolonged QT ECG [place]: + Normal Blood Pressure Blood Pressure Findings: Normal blood pressure MDM Narrative Patient was into the ER markedly ill-appearing, with concern for possible acute vascular etiology or sepsis. Patient with significant abdominal pain, tachycardia, tachypnea, unable to tolerate exam or bedside ultrasound. Patient sent urgently for CT imaging without waiting on additional lab values. Blood is drawn initially and IV placed. Patient given IV fluids and initial dose of fentanyl. I was initially concerned for acute dissection or rupturing AAA given patient's poor appearance, cyanosis, diffuse pain radiating into the back, and abnormal vital signs. I did review the CT myself while awaiting radiology read, and then called radiology at [facility] to request emergent read. Patient continued to be given pain medication and IV fluids, tachycardia did slightly improve. As patient's labs rolled back to it was apparent patient was septic, with no renal failure and significant electrolyte abnormalities. Received a call from the radiologist who stated patient had pneumoperitoneum likely from a ruptured sigm oid diverticulitis. There is no drainable abscess although there was an evolving sick centimeter phlegmon. Case discussed with general surgery on-call immediately who came and evaluated the patient at bedside, and informed me they would plan on taking the patient to the OR. Patient did receive normal saline here initially, this was then changed over to normal saline with potassium chloride after noting his significant hypokalemia. Patient was kept n.p.o. due to pending surgery. Patient and were made aware of all results by myself and the surgeon discussed additional treatment options, benefits and risks. Patient admission by general surgery, and will likely need medical consult. Patient did remain tachycardic, otherwise normotensive while in the emergency room. Patient was changed over to additional alternative pain medication given medication for nausea. An order was placed for continuous cardiac monitoring. The monitor shows a rate of _113 with _sinus tachycardia_ rhythm. Impression & Plan Sepsis, Pneumoperitoneum, Diverticulitis, Acute renal failure (ARF), Hypokalemia, Abdominal pain Discharge Plan Visit Data Chief Complaint: Abdominal Pain Stated Complaint: SEVERE ABDOMINAL PAIN Discharge Problem: Sepsis, Pneumoperitoneum, Diverticulitis, Acute renal failure (ARF), Hypokalemia, Abdominal pain Patient Disposition: Still a Patient Discharge Instructions Interventions: ED Discharge Assessment Last Done: 06/06/20 07:56 Discharge Problem: Sepsis Qualifiers: Sepsis type: sepsis due to unspecified organism Sepsis acute organ dysfunction status: with acute organ dysfunction Severe sepsis acute organ dysfunction type: acute renal failure Acute renal failure type: unspecified Severe sepsis shock status: without septic shock Qualified Code(s): A41.9 - Sepsis, unspecified organism Acute renal failure (ARF) Qualifiers: Acute renal failure type: unspecified Qualified Code(s): N17.9 - Acute kidney f ailure, unspecified Abdominal pain Qualifiers: Abdominal location: generalized Qualified Code(s): R10.84 - Generalized abdominal pain
[2020-06-06] MEDS ORDERED: OPTIRAY 320 125ml IV ONE (05:55)
[2020-06-06] MEDS ORDERED: PANTOprazole 40 MG in SYRINGE 0 ML IV ONE (05:59)
[2020-06-06] MEDS: fentaNYL citrate 100 MCG/2 ML VIAL IV PRN ×7 (06:05→13:48)
[2020-06-06 06:06] LABS: Hematocrit (blood only) 42.5 % (42-52); Hemoglobin 14.4 g/dL (14.0-18.0); Mean Corpuscular Hemoglobin 29.8 pg (25-34); Mean Corpuscular Hgb Conc 33.9 g/dL (32-36); Mean Corpuscular Volume 87.8 fL (80-100); Platelet Count 369 K/uL (130-400); RDW Coefficient of Variation 13.5 % (11.5-14.5); RDW Standard Deviation 43.7 fL (36.4-46.3); Red Blood Count 4.84 M/uL (4.7-6.1); White Blood Count 19.45 K/uL (4.8-10.8)
[2020-06-06 06:07] LABS: iSTAT Creatinine 3.6 mg/dl (0.6-1.3); iSTAT Ionized Calcium 1.16 mmol/l (1.12-1.32); iSTAT Potassium 2.2 mmol/L (3.3-5.0)
[2020-06-06 06:19] LABS: INR 1.1 (0.9-1.1); Prothrombin Time 11.4 Seconds (9.0-12.0)
[2020-06-06 06:31] LABS: Basophils # (auto) 0.03 K/uL (0-0.2); Basophils % (auto) 0.2 %; Eosinophils # (auto) 0.07 K/uL (0-0.5); Eosinophils % (auto) 0.4 %; Immature Granulocytes # (auto) 0.11 K/uL (0.00-0.02); Immature Granulocytes % (auto) 0.6 %; Lymphocytes # (auto) 2.76 K/uL (1.2-3.4); Lymphocytes % (auto) 14.2 %; Monocytes # (auto) 0.67 K/uL (0.11-0.59); Monocytes % (auto) 3.4 %; Neutrophils # (auto) 15.81 K/uL (1.4-6.5); Neutrophils % (auto) 81.2 %
[2020-06-06 06:33] LABS: Alanine Aminotransferase 33 U/L (12-78); Albumin Globulin Ratio 0.6 (0.9-2); Albumin Level 3.3 gm/dl (3.4-5.0); Alkaline Phosphatase 121 U/L (45-117); Aspartate Aminotransferase 16 U/L (15-37); BUN Creatinine Ratio 13.5 (10-20); Bilirubin,Total 0.5 mg/dl (0.2-1); Blood Urea Nitrogen 49 mg/dl (7-18); Calcium 9.6 mg/dl (8.5-10.1); Carbon Dioxide 23 mmol/L (21-32); Chloride 98 mmol/L (98-107); Est GFR (African American) 20.6; Est GFR (Non-African American) 17.7; Globulin 5.3 gm/dl (2.5-4.0); Glucose 176 mg/dl (70-99); Lipase 92 U/L (73-393); Magnesium 2.4 mg/dl (1.8-2.4); Potassium 2.2 mmol/L (3.5-5.1); Sodium 136 mmol/L (136-145); Total Protein 8.6 gm/dl (6.4-8.2); Troponin I < 0.015 ng/ml (0-0.045)
[2020-06-06] MEDS ORDERED: PIPERACILLIN/TAZOBACTAM 4.5 GM/120 ML BAG IV ONE (06:33)
[2020-06-06] MEDS ORDERED: PIPERACILL/TAZOBAC CONSULT ACTIVE PRN ×2 (06:33→15:59)
--- NOTE | 2020-06-06 06:35 | CT Scan Report ---
CT angio chest dissec wo/w con CT DOSE: HISTORY: Pain abd pain into back TECHNIQUE: Multiaxial CT images of the chest, abdomen, and pelvis were performed both before and afte r the intravenous administration of contrast to evaluate the aorta. Maximal intensity projection imag es were also obtained. A dose lowering technique was utilized adhering to the principles of ALARA. COMPARISON STUDY: None. FINDINGS: The thoracic aorta shows no evidence for aneurysm or dissection. The pulmonary vasculature enhances appropriately. There are findings of mild bibasilar atelectasis. Lungs otherwise appear lyn r. Limited evaluation the upper abdomen shows free intraperitoneal air IMPRESSION: 1. Normal thoracic aorta. 2. No evidence for pulmonary embolus. 3. Free intraperitoneal air within the abdomen 4. This report was phoned to Dr. car in the emergency room ACT 112: Negative or not required by law. The above report was generated using voice recognition software. It may contain grammatical, syntax or spelling errors. Electronically signed by: Malachi Lockett M.D. 06/06/2020 6:34 AM
--- NOTE | 2020-06-06 06:41 | CT Scan Report ---
Study: CT abdomen and pelvis angiogram HISTORY: Pain. FINDINGS: The arterial structures of the abdomen and pelvis show considerable atherosclerotic changes throughout. There is mild narrowing of the origin of the celiac axis and superior mesenteric artery. High degree of stenotic change is not felt to be present. Free air is noted within the abdomen as well as pelvis. Fatty infiltration of liver is noted. Pancrea s and spleen are unremarkable. Kidneys demonstrate several cysts. Negative for hydronephrosis. There are findings of acute diverticulitis involving the mid to distal descending colon as well as pr oximal to mid sigmoid. Pericolonic infiltrative change is present. Medial to the descending colon is an air-containing phlegmon is-type structure measuring 5.7 x 6.0 cm . This appears represent a local perforation and possibly early phlegmon formation. No well-defined drainable abscess or collection is a not identified by percutaneous status. Chronic lower sigmoid diverticulosis is present. There is a small amount of free fluid within the pel cale cul-de-sac. The appendix is normal. The bowel pattern is nonobstructive. IMPRESSION: 1. Free intraperitoneal air involving the abdomen as well as pelvis. 2. This appears to originate from perforated diverticulitis involving the distal descending as well a s proximal to mid sigmoid colons. 3. A 6 cm air and infiltrative collection medial to the distal descending colon suggesting perforated developing phlegmon. 4. No evidence for percutaneously drainable abscess or collection at this time. 5. Nonobstructive bowel pattern. 6. Small amount of free fluid within the pelvic cul-de-sac. 7. Atherosclerotic changes throughout the arterial structures of the abdomen and pelvis with no evide nce for high-grade stenosis. 8. This report was phoned to Dr Jaffe in the emergency room Electronically signed by: Malachi Lockett M.D. 06/06/2020 6:39 AM
--- NOTE | 2020-06-06 07:04 | History & Physical Report ---
Date of Service June 06, 2020 Assessment & Plan (1) Pneumoperitoneum: Admission and Anticipated Discharge Date Admission Date: The patient will be taken to surgery for exploratory lap likely Priya procedure Risk and complication were explained to the patient and his and we will proceed accordingly At the present time he is being fluid resuscitated antibiotic on board surgery should be available within the hour or so History of Present Illness Chief Complaint: Patient came into the emergency room with abdominal pain Primary Care Provider: Zaida Leroy PA-C This 59-year-old gentleman has had abdominal pain since last had been seen by primary care and felt that this with the diverticular versus colonic problem was placed on bowel prep with the anticipation possible colonoscopy the patient's pain had persisted since progressively and this morning came to really excruciating and was brought into the emergency room where he appeared to have a septic picture we were asked to see him in the emergency room Allergies Allergy/AdvReac Type Severity Reaction Status Date / Time No Known Allergies Allergy Verified 06/05/20 14:45 Home Medications Home Medications Medication Instructions Recorded Confirmed Type amlodipine 5 mg PO DAILY 04/13/20 06/06/20 History atorvastatin 20 mg PO QAM 04/13/20 06/06/20 History chlorthalidone 25 mg PO QAM 04/13/20 06/06/20 History ibuprofen 600 mg PO BID 04/13/20 06/06/20 History lisinopril 40 mg PO QAM 04/13/20 06/06/20 History Past Med/Surg History Medical History (Updated 06/06/20 @ 07:03 by Allan Corea MD) Hyperlipidemia Hypertension Osteoarthritis Surgical History (Updated 04/24/20 @ 15:05 by Jonn Martínez DO) History of partial knee replacement left History of tooth extraction Status post right partial knee replacement (~03/2020) Social History Smoking Status: Never smoker Second Hand Exposure: No; Hx Alcohol Use: No Hx Substance Use: No Preferred Language: Georgian Communication Ability: Effective Applied Biology Professor Required: No Beliefs That Will Affect Care: None marital status: Current Living Situation: Spouse Feels Safe at Home: Yes Physical Exam Physical Exam: Laying supine position complaining of abdominal discomfort Constitutional: WD/WN, vitals as above well developed and + ill appearing Eyes: PERRL, conjunctivae normal, anicteric sclerae ENMT: external ear and nose normal, oropharynx normal Neck: trachea midline, no thyromegaly Respiratory: normal respiratory effort Cardiovascular: Rate/Rhythm: + tachycardic Slight tachycardia proximally 1 10-1 14 Gastrointestinal (Abdomen): Abdomen is distended generalized tenderness and guarding with rebound tenderness Results & Data Results & Data ([facility]) Vital Signs (Past 12 Hours) Vital Signs Temp Pulse Resp BP Pulse Ox 06/06/20 06:12 115 H 23 119/75 97 06/06/20 05:39 134 H 32 H 107/75 06/06/20 05:32 36.9 C 30 H noted PG Care Time/CCT Total # of Minutes Spent Total Time Spent with Patient: Total time spent is greater than 50% in coordination of care (as documented) at patient's floor/unit and/or counseling patient: Coding Level of Care Code 96310 Initial Inpt Care Lvl 3 Diagnoses Pneumoperitoneum K66.8
[2020-06-06] MEDS: POTASSIUM CHLORIDE 10 MEQ in SODIUM CHLORIDE 0.9% 1000ML 1,000 ML IV SCH ×2 (07:12→15:19)
--- NOTE | 2020-06-06 08:04 | Anesthesiology Consultation ---
Date of Service June 06, 2020 Assessment & Plan (1) Diverticulitis: (2) Encounter for pre-operative examination: History Surgery Operation Date: 06/06/20 08:45 Proposed Procedures p Exploratory Laparotomy Colon Resection - Allan Corea MD Height/Weight Height: 5 ft 11 in Weight: 107.501 kg Allergies Allergy/AdvReac Type Severity Reaction Status Date / Time No Known Allergies Allergy Verified 06/05/20 14:45 Medications Home Medications Medication Instructions Recorded Confirmed Last Taken amlodipine 5 mg PO DAILY 04/13/20 06/06/20 Unknown atorvastatin 20 mg PO QAM 04/13/20 06/06/20 Unknown chlorthalidone 25 mg PO QAM 04/13/20 06/06/20 Unknown ibuprofen 600 mg PO BID 04/13/20 06/06/20 Unknown lisinopril 40 mg PO QAM 04/13/20 06/06/20 Unknown Active Medications Generic Name Dose Route Start Last Admin Trade Name Freq PRN Reason Stop Dose Admin Fentanyl Citrate 100 mcg 06/06/20 05:45 06/06/20 07:51 Fentanyl Citrate 100 Mcg/2 Ml Vial IV 06/20/20 05:44 100 mcg Q15M PRN Administration Pain Potassium Chloride 10 meq/ 1,005 mls @ 200 mls/hr 06/06/20 07:00 06/06/20 07:12 Sodium Chloride IV 07/06/20 06:59 200 mls/hr .Q5H2M LOYD Administration NPO Date Last Intake of Fluids: 06/06/20 Time Last Intake of Fluids: 04:00 Last Intake of Fluids Comment: "few sips of lemonade" Date Last Intake of Solids: 06/05/20 Last Intake of Solids Comment: attempted to eat toast. Past Medical History Medical History (Updated 06/06/20 @ 08:03 by Dimple Herring MD) Acute renal failure (ARF) Diverticulitis Hyperlipidemia Hypertension Hypokalemia Osteoarthritis Pneumoperitoneum Past Surgical History Surgical History History of partial knee replacement left History of tooth extraction Status post right partial knee replacement (~03/2020) Social History Smoking Status: Never smoker Do You Dip or Chew Tobacco: No (stopped 13-15 years ago) Hx Alcohol Use: No Hx Substance Use: No substance use type: does not use Physical Exam Vital Signs Last Vital Signs Temp 36.9 C 06/06/20 05:32 Pulse 112 H 06/06/20 07:52 Resp 17 06/06/20 07:52 BP 100/65 06/06/20 07:52 Pulse Ox 97 06/06/20 07:52 Testing Laboratory Results 06/06/20 05:55 06/06/20 05:55 PT 11.4 Seconds (9.0-12.0) 06/06/20 05:55 INR 1.1 (0.9-1.1) 06/06/20 05:55 06/06/20 05:54 POC Glucose (other) 174 H Electrocardiogram Date: 04/18/20 Normal sinus rhythm Normal ECG When compared with ECG of 08-OCT-2016 12:25, No significant change was found Confirmed by Juan Luis Nicholas ([id number]) on 04/18/2020 1:51:53 PM
[2020-06-06] MEDS: POTASSIUM CHLORIDE / WTR 10 MEQ/100 ML PLCT IV SCH ×9 (08:27→23:39)
[2020-06-06] MEDS ORDERED: fentaNYL citrate 100 MCG/2 ML VIAL ONE ×3 (08:33→11:46)
[2020-06-06] MEDS ORDERED: fentaNYL citrate 100 MCG/2 ML VIAL IV ONE (09:25)
[2020-06-06] MEDS ORDERED: LACTATED RINGER'S 1,000 ML IV ONE (09:45)
[2020-06-06 10:28] LABS: iSTAT Creatinine 2.7 mg/dl (0.6-1.3); iSTAT Hemoglobin 10.5 g/dl (14.0-18.0); iSTAT Ionized Calcium 1.18 mmol/l (1.12-1.32); iSTAT Potassium 2.6 mmol/L (3.3-5.0)
[2020-06-06] MEDS ORDERED: ONDANSETRON INJ 2 MG/ML 2 ML VIAL ONE (11:28)
[2020-06-06] MEDS ORDERED: NEOSTIGMINE METHYLSULFATE 5 MG/5 ML SYR ONE (11:28)
[2020-06-06] MEDS ORDERED: PROPOFOL IV EMULSION 10 MG/ML 20 ML VIAL IV ONE ×2 (11:28→11:44)
[2020-06-06] MEDS ORDERED: GLYCOPYRROLATE 0.2 MG/ML VIAL ONE (11:28)
[2020-06-06] MEDS ORDERED: SUCCINYLCHOLINE CHLORIDE 20 MG/ML 10 ML VIAL IV ONE (11:28)
[2020-06-06] MEDS ORDERED: ROCURONIUM BROMIDE 10 MG/ML 5 ML VIAL IV ONE ×6 (11:28→11:44)
[2020-06-06] MEDS ORDERED: LIDOCAINE HCL 2% 2 ML VIAL/AMP(20MG/ML) INFIL ONE (11:28)
[2020-06-06] MEDS ORDERED: PHENYLEPHRINE HCL 10 MG/ML VIAL ONE (12:42)
--- NOTE | 2020-06-06 12:52 | Post Operative Brief Note ---
PG Immediate Post Op with CF Date of Surgery June 06, 2020 Pre & Post Diagnosis Operation Date: 06/06/20 08:45 Pre-Op Diagnosis: Pneumoperitoneum, severe abdominal pain Post-Op Diagnosis: Pneumoperitoneum, severe abdominal pain I identified the patient and participated in the time-out.: Yes Procedure Operation Date: 06/06/20 08:45 Actual Procedures p Exploratory Laparotomy, Abdominal wash out, Sigmoid Colon Resection and Priya procedure (Not Applicable) - Allan Corea MD Surgeon Allan Corea MD Finance Accounting Internship gisell fairchild Estimated Blood Loss 200 Findings Consistent with Post-Op Diagnosis Specimens Specimen Description: #1 culture urine after catheter insertion #2 culture peritoneal fluid A. portion of sigmoid Drains Hernandez Catheter and Stowe Drain
[2020-06-06] MEDS ORDERED: ATROPINE SULFATE 0.1 MG/ML 10ML SYR IV PRN (13:00)
[2020-06-06] MEDS ORDERED: ePHEDrine sulfate 50 MG/ML AMP IV PRN (13:00)
[2020-06-06] MEDS ORDERED: ONDANSETRON INJ 2 MG/ML 2 ML VIAL IV PRN (13:00)
[2020-06-06] MEDS: HYDROmorphone INJ 1 MG/ML SYRINGE IV PRN ×8 (13:53→14:38)
[2020-06-06] MEDS ORDERED: ACETAMINOPHEN 1000 MG/100 ML IV IV ONE ×2 (14:12→14:13)
[2020-06-06] MEDS ORDERED: BACITRACIN INJ 50,000 UNIT VIAL ONE (14:27)
[2020-06-06] MEDS ORDERED: BUPIVACAINE 0.5 % 5 MG/1 ML MPF 30ML VIAL ONE (14:28)
[2020-06-06 14:33] LABS: BUN Creatinine Ratio 16.9 (10-20); Creatinine Clr Calc Pharmacy 39.4 ml/min; Est GFR (African American) 30.7; Est GFR (Non-African American) 26.4
--- NOTE | 2020-06-06 15:02 | Anesthesiology Progress Note ---
Date of Service June 06, 2020 Anesthesia Post Procedure Vital Signs Vital Signs: Temp Pulse Pulse Pulse Resp BP BP 06/06/20 14:45 37.6 C H 92 H 13 114/67 06/06/20 14:35 93 H 14 119/68 06/06/20 14:25 95 H 14 121/76 06/06/20 14:15 95 H 13 122/74 06/06/20 14:05 95 H 15 130/82 06/06/20 13:55 99 H 17 124/80 06/06/20 13:45 98 H 19 130/81 06/06/20 13:35 100 H 17 143/84 H 06/06/20 13:25 102 H 21 123/68 06/06/20 13:19 36.8 C 104 H 20 115/81 06/06/20 08:13 37.2 C 112 H 18 06/06/20 07:52 112 H 17 100/65 06/06/20 07:45 113 H 18 110/68 06/06/20 07:40 112 H 13 111/67 06/06/20 07:30 111 H 17 101/66 06/06/20 07:00 116 H 17 124/74 06/06/20 06:30 113 H 19 116/70 06/06/20 06:12 115 H 23 119/75 06/06/20 05:39 134 H 32 H 107/75 06/06/20 05:32 36.9 C 30 H BP Pulse Ox 06/06/20 14:45 95 06/06/20 14:35 94 06/06/20 14:25 93 06/06/20 14:15 95 06/06/20 14:05 95 06/06/20 13:55 92 06/06/20 13:45 95 06/06/20 13:35 97 06/06/20 13:25 98 06/06/20 13:19 99 06/06/20 08:13 107/63 96 06/06/20 07:52 97 06/06/20 07:45 96 06/06/20 07:40 96 06/06/20 07:30 97 06/06/20 07:00 99 06/06/20 06:30 98 06/06/20 06:12 97 06/06/20 05:39 06/06/20 05:32 Pain Intensity Abdomen: Pain Intensity: 5 Transfer of Care Handoff Completed per policy Notes Mental Status: alert / awake / arousable and participated in evaluation Patient Amnestic to Procedure: Yes Nausea / Vomiting: adequately controlled Pain: adequately controlled Airway Patency, RR, SpO2: stable & adequate BP & HR: stable & adequate Hydration State: stable & adequate Anesthetic Complications: no major complications apparent and Pt Satisfied with anesthetic care Notes: The patient is a 59 y/o male with a history of HTN and DLD who presented with abdominal pain and sepsis not s/p exploratory laparotomy, abdominal wash out, sigmoid Colon Resection and Priya procedure. The patient was found to be hypokalemic in the ED with a potassium of 2.2. His creatinine was also elevated to 3.59. The patient was given 40mEQ IV potassium preoperatively as well as 2L IV lactated Ringers. The patient did well intraoperatively. He received a total of 5, 250ml of crystalloid perioperatively, urine output was 400ml and EBL 200ml intraoperatively. In recovery, his vital signs remained stable and his pain has improved following IV fentanyl,Dilaudid and 1000mg Ofirmev. The patient's potassium was rechecked in recovery and was found to be 3.0, creatinine also improved to 2.58. The patient will be transferred to the ICU for close monitoring. A full report was given to his nurse has Dr. Gerber is currently in a procedure.
--- NOTE | 2020-06-06 15:09 | Operative Report ---
PG Post Operative Report Pre & Post Diagnosis Operation Date: 06/06/20 08:45 Pre-Op Diagnosis: Pneumoperitoneum, severe abdominal pain Post-Op Diagnosis: Pneumoperitoneum, severe abdominal pain I identified the patient and participated in the time-out.: Yes Procedure Operation Date: 06/06/20 08:45 Actual Procedures p Exploratory Laparotomy, Abdominal wash out, Sigmoid Colon Resection and Priya procedure (Not Applicable) - Allan Corea MD The patient was brought into the operating theater general trach anesthesia supine position Hernandez catheter inserted the abdomen was shaved and prepped Betadine solution properly draped a timeout was had patient was identified we made an incision from the umbilical area down to the symphysis pubis subcutaneous vessels were cauterized we entered the midline and entered the peritoneal cavity immediately significant amount of purulent material that we encountered we did culture this as we enlarged the incision were able then use Loja retractors placed the patient a little reverse Trendelenburg position and irrigated and cleaned out the abdomen approximately 3 L of normal saline solution warm solution we then placed the Bookwalter retraction and I can feel a very hard indurated area in the sigmoid it was able to manually free up some adhesion and omentum that had pointed to the area of interest and we identified a necrotic cavity the confines worries with small bowel and sigmoid colon we bluntly freed this all up and then we elevated the sigmoid colon by dividing white line of Toldt we stayed very close to the colon itself and distally we were distal sigmoid rectal area where I created a window sufficient enough to place a BEATRIZ stapler. Then I divided the mesentery to the sigmoid colon and retry then mobilized the colon proximal to it sufficient enough that we would be able to place a colostomy however descending colon was not offering very much ability we followed it distally until proximal to the area of induration where appear to be fine we try to save as much possible descending colon were created a window and I used a TA [id number] to go across that area and resected the colon and the mesentery bleeding from mesentery was encountered and closed with 2-0 silk sutures. The colon was resected at this point the proximal descending colon was mobilized we used all the way up towards splenic flexure when I felt we had enough mobility the possible to create a colostomy I took a $0.25 piece of skin assisted between the umbilical area and anterior superior iliac crest freed the subcutaneous tissue onto the rectus anteriorly placed a cruciate opening in this enter the peritoneal cavity the area could accommodate 3 fingers. At this point I then was able to bring out the sigmoid colon as a colostomy and I could reach through the skin and appeared viable although it was I would like some more bowel mobility if I could identify this point with encounter to make a larger incision and completely free up the splenic flexure all the way to the transverse colon I felt that probably this would be sufficient even though we may have some ischemia of the colostomy itself once the abdomen had been again irrigated we checked for hemostasis appear satisfactory I placed a Nj drain through a stab wound to right lower quadrant down the pelvic area attaching skin edge with 2-0 silk suture I used #5 Mersilene as retention sutures were then closed the fascia in the lower midline incision using #1 continuous PDS 5/8 of an inch Mercedez drain was placed in the subcu held in place distally approximately with 2-0 silk suture jalen applied the retention sutures were then closed over bolsters. A towel was placed over the area at this point attention was turned to the colostomy where we stated we were able to had enough mobility although was a little bit dusky we freshened up the edge and used 3-0 chromic suture to fasting the mucosa submucosa and serosa to the edges of the opening of the skin with interrupted 3-0 chromic suture I placed a finger in the colostomy itself and the fascia was tied a bag was applied procedure was tolerated well by the patient estimated blood loss approximately 200 cc addendum Augustina Yap physician clinical laboratory assistant was present throughout the procedure and helped the retraction exposure and wound closure Surgeon Allan Corea MD Cake Washer gisell fairchild Estimated Blood Loss 200 Findings Consistent with Post-Op Diagnosis Specimens colon sigmoid Description of Procedure merda I attest to the content of the Intraoperative Record and any orders documented therein. Any exceptions are noted below.
[2020-06-06] MEDS ORDERED: PIPERACILLIN/TAZOBACTAM 3.375 GM in DEXTROSE 5% 100 ML IV SCH (15:59)
[2020-06-06] MEDS ORDERED: MoRPHine SULFATE 2 MG/ML CARP IV PRN (15:59)
[2020-06-06] MEDS ORDERED: PIPERACILLIN/TAZOBACTAM 4.5 GM in DEXTROSE 5% 100 ML IV ONE (16:15)
--- NOTE | 2020-06-06 16:21 | Critical Care Consultation ---
Date of Consultation June 06, 2020 Assessment & Plan (1) Pneumoperitoneum: --Pneumoperitoneum Status post surgery Continue with antibiotics Pain management Incentive spiromety --Acute renal failure Baseline creatinine 1.22 Monitor BUNs/creatinine Strict in and out Avoid nephrotoxic medications Continue with IV fluids --Hypokalemia being replaced -- HTN/ DLP BP medication on hold --Prophylaxis VTE: Heparin GI: Pantoprazole Lines: Right radial, peripheral Diet: N.p.o. Plan: Pain management Strict in and out Avoid nephrotoxic medication Incentive spirometry I have personally spent 61 minutes of critical care time in the direct management of this patient. This is a life/limb threatening event. This includes time spent evaluating patient, direct bedside care, chart review, placing orders, interpretation of diagnostic studies, discussion with consultants, patient, and family members, as well as other required patient management activities. This time is exclusive of all separately billable procedures, and teaching time and separate from and in addition to any other critical care service time. Please note the above document was generated using voice recognition software. It may contain grammatical, syntax or spelling errors. (2) Acute renal failure (ARF): (3) Hypokalemia: History of Present Illness Attending Physician: Allan Corea MD History of Present Illness 59 yo CM with PMHx of HTN had been complaining of abd pain since last . Today it became very severe for him to come to ED. In the ER he was found to have pneumoperitoneum and was emergently taken to OR for exploratory lap by Dr Corea. Dr Corea gave sign out regarding the procedure he performed and drains placed. Patient has low normal BP but over all did well during the surgery. At the time of examination in MICU. He denied and CP, No SOB, No RAYA, No N or V. THe only complain he had was of abd pain from his surgery. Social Hx: non smoker, No illicit drug use. Occasional etoh. Allergies Allergy/AdvReac Type Severity Reaction Status Date / Time No Known Allergies Allergy Verified 06/05/20 14:45 Home Medications Home Medications Medication Instructions Recorded Confirmed Type amlodipine 5 mg PO DAILY 04/13/20 06/06/20 History atorvastatin 20 mg PO QAM 04/13/20 06/06/20 History chlorthalidone 25 mg PO QAM 04/13/20 06/06/20 History ibuprofen 600 mg PO BID 04/13/20 06/06/20 History lisinopril 40 mg PO QAM 04/13/20 06/06/20 History Patient History Medical History (Updated 06/06/20 @ 08:03 by Dimple Herring MD) Acute renal failure (ARF) Diverticulitis Hyperlipidemia Hypertension Hypokalemia Osteoarthritis Pneumoperitoneum Surgical History (Updated 06/06/20 @ 12:58 by Mandie Mendoza RN) History of partial knee replacement left History of tooth extraction S/P colon resection (06/06/20) Exploratory Laparotomy, Abdominal wash out, Sigmoid Colon Resection and Priya procedure Dr. Corea 06/06/2020 Status post right partial knee replacement (~03/2020) Social History Smoking Status: Never smoker Second Hand Exposure: Yes ( 15 years ago); Do You Dip or Chew Tobacco: No (stopped 13-15 years ago); Tobacco Cessation Education Requested by Patient: No Hx Alcohol Use: No Hx Substance Use: No Preferred Language: Martiniquais Communication Ability: Effective Manager Technical Support Required: No Beliefs That Will Affect Care: None marital status: Current Living Situation: Spouse Other Information That Helps Us Care for You: No Feels Safe at Home: Yes Safety Concerns: Feels Safe At This Time Review of Systems Review of Systems: All systems reviewed & are unremarkable except as noted in HPI & below Physical Exam Physical Exam: Constitutional: No acute distress HEENT: EOMI, PERRLA, positive NGT Respiratory system: Decreased air entry bilaterally, no wheeze, no rhonchi, mild crackles bilateral lower lobes CVS: S1-S2 positive, no murmurs or gallops, distant heart sounds Abdomen: Soft, mild tenderness, decreased bowel sounds, positive left-sided colostomy, positive drain, surgical dressing in place Extremities: +2 pulses bilaterally radialis/ dorsalis pedis, no cyanosis, no edema Neuro: Awake alert oriented x3 Psych: Normal mood and affect G/U: Positive Hernandez Skin: no rashes, warm and dry Lymphatic: no cervical or axillary lymphadenopathy Results & Data Results & Data ([facility]) Vital Signs (Past 12 Hours) Vital Signs Temp Pulse Pulse Pulse Resp BP BP 06/06/20 16:00 83 13 06/06/20 15:33 36.8 C 83 15 120/65 06/06/20 15:15 87 14 124/67 06/06/20 15:00 90 13 115/60 06/06/20 14:45 37.6 C H 92 H 13 114/67 06/06/20 14:35 93 H 14 119/68 06/06/20 14:25 95 H 14 121/76 06/06/20 14:15 95 H 13 122/74 06/06/20 14:05 95 H 15 130/82 06/06/20 13:55 99 H 17 124/80 06/06/20 13:45 98 H 19 130/81 06/06/20 13:35 100 H 17 143/84 H 06/06/20 13:25 102 H 21 123/68 06/06/20 13:19 36.8 C 104 H 20 115/81 06/06/20 08:13 37.2 C 112 H 18 06/06/20 07:52 112 H 17 100/65 06/06/20 07:45 113 H 18 110/68 06/06/20 07:40 112 H 13 111/67 06/06/20 07:30 111 H 17 101/66 06/06/20 07:00 116 H 17 124/74 06/06/20 06:30 113 H 19 116/70 06/06/20 06:12 115 H 23 119/75 06/06/20 05:39 134 H 32 H 107/75 06/06/20 05:32 36.9 C 30 H BP Pulse Ox 06/06/20 16:00 98 06/06/20 15:33 96 06/06/20 15:15 96 06/06/20 15:00 94 06/06/20 14:45 95 06/06/20 14:35 94 06/06/20 14:25 93 06/06/20 14:15 95 06/06/20 14:05 95 06/06/20 13:55 92 06/06/20 13:45 95 06/06/20 13:35 97 06/06/20 13:25 98 06/06/20 13:19 99 06/06/20 08:13 107/63 96 06/06/20 07:52 97 06/06/20 07:45 96 06/06/20 07:40 96 08/12/20 07:30 97 06/06/20 07:00 99 06/06/20 06:30 98 06/06/20 06:12 97 06/06/20 05:39 06/06/20 05:32 06/06/20 05:55 06/06/20 13:49 Coding Level of Care Code Critical Care 1st 30-74 mins Diagnoses Pneumoperitoneum K66.8 Acute renal failure (ARF) N17.9 Acute renal failure type: unspecified Hypokalemia E87.6 Time Spent (min) 61 (1) Acute renal failure (ARF) Acute renal failure type: unspecified Qualified Code(s): N17.9 - Acute kidney failure, unspecified
[2020-06-06] MEDS: LACTATED RINGER'S 1,000 ML IV SCH ×2 (16:23→19:22)
[2020-06-06] MEDS: MoRPHine SULFATE 4 MG/ML 1 ML CARP\\VIAL IV PRN ×3 (16:23→22:04)
[2020-06-06 17:13] LABS: Hematocrit (blood only) 32.5 % (42-52); Hemoglobin 11.1 g/dL (14.0-18.0); Mean Corpuscular Hemoglobin 29.5 pg (25-34); Mean Corpuscular Hgb Conc 34.2 g/dL (32-36); Mean Corpuscular Volume 86.4 fL (80-100); Mean Platelet Volume 8.9 fL (7.4-10.4); Platelet Count 274 K/uL (130-400); RDW Coefficient of Variation 13.8 % (11.5-14.5); RDW Standard Deviation 43.7 fL (36.4-46.3); Red Blood Count 3.76 M/uL (4.7-6.1); White Blood Count 18.57 K/uL (4.8-10.8)
[2020-06-06 17:21] LABS: BUN Creatinine Ratio 17.1 (10-20); Calcium 8.2 mg/dl (8.5-10.1); Creatinine Clr Calc Pharmacy 41.5 ml/min; Est GFR (African American) 32.6; Est GFR (Non-African American) 28.2; Magnesium 2.1 mg/dl (1.8-2.4)
[2020-06-06 17:45] LABS: Basophils # (auto) 0.02 K/uL (0-0.2); Basophils % (auto) 0.1 %; Dohle Bodies 1+; Immature Granulocytes # (auto) 0.15 K/uL (0.00-0.02); Immature Granulocytes % (auto) 0.8 %; Lymphocytes # (auto) 1.37 K/uL (1.2-3.4); Lymphocytes % (auto) 7.4 %; Monocytes # (auto) 1.05 K/uL (0.11-0.59); Monocytes % (auto) 5.7 %; Neutrophils # (auto) 15.98 K/uL (1.4-6.5)
[2020-06-06 18:05] LABS: Appearance Urine Cloudy (Clear); Bacteria Urine Automated Negative (Negative); Bilirubin Urine Negative (Negative); Blood Urine 1+ (Negative); Color Urine Yellow; Glucose Urine UA Negative (Negative); Ketones Urine Negative (Negative); Leukocyte Esterase Urine Negative (Negative); Nitrite Urine Negative (Negative); Protein Urine 1+ (Negative); RBC Urine Automated 0-4 /hpf (0-4); Specific Gravity Urine 1.042 (1.000-1.030); Urobilinogen Urine Negative (Negative)
[2020-06-06 18:15] LABS: Uric Acid Crystals Urine Present (None Prsent)
[2020-06-06] MEDS: PANTOprazole 40 MG in SYRINGE 0 ML IV SCH (19:47)
[2020-06-06] MEDS: ACETAMINOPHEN 1000 MG/100 ML IV IV SCH (21:58)
[2020-06-06] MEDS: HEPARIN SOD 5,000 UNIT/0.5 ML VIAL SQ SCH (21:58)
[2020-06-06] MEDS: PIPERACILLIN/TAZOBACTAM 4.5 GM in DEXTROSE 5% 100 ML IV SCH (21:58)
[2020-06-07] MEDS: MoRPHine SULFATE 4 MG/ML 1 ML CARP\\VIAL IV PRN ×9 (00:18→21:59)
[2020-06-07] MEDS: POTASSIUM CHLORIDE / WTR 10 MEQ/100 ML PLCT IV SCH ×8 (00:39→11:36)
[2020-06-07] MEDS: LACTATED RINGER'S 1,000 ML IV SCH ×3 (02:03→18:55)
[2020-06-07 04:45] LABS: Hematocrit (blood only) 30.3 % (42-52); Hemoglobin 10.5 g/dL (14.0-18.0); Mean Corpuscular Hemoglobin 30.2 pg (25-34); Mean Corpuscular Hgb Conc 34.7 g/dL (32-36); Mean Corpuscular Volume 87.1 fL (80-100); Mean Platelet Volume 8.5 fL (7.4-10.4); Platelet Count 237 K/uL (130-400); RDW Coefficient of Variation 13.9 % (11.5-14.5); RDW Standard Deviation 44.3 fL (36.4-46.3); Red Blood Count 3.48 M/uL (4.7-6.1); White Blood Count 14.56 K/uL (4.8-10.8)
[2020-06-07 05:01] LABS: BUN Creatinine Ratio 19.9 (10-20); Calcium 7.6 mg/dl (8.5-10.1); Creatinine Clr Calc Pharmacy 54.1 ml/min; Est GFR (African American) 44.9; Est GFR (Non-African American) 38.8; Magnesium 1.9 mg/dl (1.8-2.4); Potassium 3.1 mmol/L (3.5-5.1)
[2020-06-07 05:06] LABS: Phosphorus 3.8 mg/dl (2.5-4.9)
[2020-06-07 05:49] LABS: ALC (manual) 1.92 K/uL (1.2-3.4); ANC (manual) 12.51 K/uL (1.4-6.5); Dohle Bodies 1+; Lymphocytes # (manual) 1.66 K/uL (1.2-3.4); Lymphocytes % (manual) 11.4 %; Monocytes # (manual) 0.13 K/uL (0.11-0.59); Monocytes % (manual) 0.9 %; Neutrophils # (manual) 12.51 K/uL (1.4-6.5); Neutrophils % (manual) 85.9 %; Plasma Cells # (manual) 0.26 K/uL (0-0); Plasma Cells % (manual) 1.8 %
[2020-06-07] MEDS: ACETAMINOPHEN 1000 MG/100 ML IV IV SCH ×3 (05:50→22:00)
[2020-06-07] MEDS: PIPERACILLIN/TAZOBACTAM 4.5 GM in DEXTROSE 5% 100 ML IV SCH ×3 (05:50→22:00)
[2020-06-07] MEDS: HEPARIN SOD 5,000 UNIT/0.5 ML VIAL SQ SCH ×3 (05:50→21:58)
--- NOTE | 2020-06-07 06:11 | Electrocardiogram Report ---
Test Reason : Blood Pressure : / mmHG Vent. Rate : 135 BPM Atrial Rate : 270 BPM P-R Int : 000 ms QRS Dur : 086 ms QT Int : 348 ms P-R-T Axes : 030 013 034 degrees QTc Int : 522 ms Poor data quality, interpretation may be adversely affected Probable Sinus tachycardia Nonspecific ST abnormality Abnormal ECG When compared with ECG of 18-APR-2020 10:03, Vent. rate has increased BY [address] now depressed in Anterolateral leads Confirmed by Christopher Paredes ([id number]) on 06/07/2020 6:11:11 AM Referred By: REFERRED SELF Confirmed By:Christopher Paredes
--- NOTE | 2020-06-07 06:35 | Surgery Progress Note ---
Date of Service June 07, 2020 Assessment & Plan Admission and Anticipated Discharge Date Admission Date: June 06, 2020 We will reevaluate later this morning but most likely the patient could be transferred to a regular floor Intraoperative findings and operative procedure was explained to the patient and he understands Subjective Resting comfortably in bed with lower abdominal discomfort Physical Exam Physical Exam: Patient is alert coherent no distress Normal color and texture of skin well-hydrated Abdomen softly distended as expected dressings are dry the colostomy is dusky but not necrotic as no output at this time Nj drainage is serous sanguinous the urine appears normal color Results & Data ([facility]) Vital Signs (Past 12 Hours) Vital Signs Temp Pulse Resp BP Pulse Ox 06/07/20 04:50 80 9 L 157/69 H 96 06/07/20 03:49 36.8 C 78 14 142/73 H 95 06/07/20 02:49 75 14 131/71 95 06/07/20 01:49 78 13 137/77 94 06/07/20 00:49 76 12 118/69 95 06/07/20 00:00 80 06/06/20 23:50 36.5 C 78 12 113/68 94 06/06/20 23:39 78 17 111/64 96 06/06/20 22:43 77 10 L 127/65 94 06/06/20 22:13 82 17 123/65 94 06/06/20 21:43 78 11 L 129/67 95 06/06/20 21:13 78 12 85/58 L 95 06/06/20 20:43 78 12 118/76 94 06/06/20 20:13 36.5 C 78 12 126/79 94 06/06/20 19:43 79 16 127/81 93 06/06/20 19:13 76 11 L 106/62 94 06/06/20 18:42 75 10 L 107/66 93 the lab vitals were noted potassium is up to 3.1 creatinine is down to 1.8 PG Care Time/CCT Total # of Minutes Spent Total Time Spent with Patient: Total time spent is greater than 50% in coordination of care (as documented) at patient's floor/unit and/or counseling patient: Coding Level of Care Code None Comment post op care
--- NOTE | 2020-06-07 07:42 | Critical Care Progress Note ---
Date of Service June 07, 2020 Assessment & Plan (1) Sepsis: Reason Critically Ill: 59 yo M PMHx significant for HTN who presented with severe abdominal pain and who underwent emergent exploratory laparotomy for findings of pneumoperitoneum on imaging, and found to have perforated sigmoid d iverticula. Underwent sigmoid resection and colostomy placement, and transferred to ICU for close monitoring following surgery. Neuro - [facility] ICU: negative Sedation: none Analgesia: Tylenol 1000mg q8h scheduled, morphine PRN pain - No neurologic deficits. Cardiac - HTN: - At home takes chlorthalidone 25mg daily, Lisinopril 40mg daily, amlodipine 5mg daily. - This AM with intermittent BP 150s/70s. - NPO at this time following surgery. - Hydralazine 10mg IV q8h PRN SBP >160mmHg. - Will eventually be able to add home medications back once tolerating PO and once BP allows. Respiratory - Chest CTA this admission negative for acute process of the lungs. - Saturating well on room air, and without respiratory complaints. - COVID 19 testing negative. GI Pneumoperitoneum, Perforated Sigmoid Diverticulitis s/p Sigmoid resection and colostomy: - On arrival with severe abdominal/back pain. - CTAP performed which showed: 1. Free intraperitoneal air involving the abdomen as well as pelvis, originating from perforated diverticulitis involving the distal descending as well as proximal to mid sigmoid colons. 2. A 6 cm air and infiltrative collection medial to the distal descending colon suggesting perforated developing phlegmon. 3. No evidence for percutaneously drainable abscess or collection at this time. 4. Nonobstructive bowel pattern. 5. Small amount of free fluid within the pelvic cul-de-sac. - Patient taken for emergent exploratory laparotomy which noted necrotic area with perforated diverticulum of sigmoid colon which was resected and colostomy placed. - NPO at this time following surgery. Minimal bowel sounds noted on exam this AM. - Pantoprazole 40mg IV daily for GI ppx. RENAL/LYTES - JAYESH: - Baseline creatinine is 1.22. - With improvement in creatinine from 3.59 -> 1.88 with LR resuscitation. - Have decreased fluids this AM from 150cc->100cc/hr. - Avoid nephrotoxic medications, and renally dose medications. - Continue to monitor renal function. - Monitor Is/Os. Hypokalemia: -On arrival with K 2.0; this AM 3.1 s/p KCl repletement. -Received KRiders 60meq IV this AM. -Repeat BMP tomorrow AM. Hypomagnesemia: - Mg 1.9 this AM, have repleted with Mg Sulfate 1g IV. - Repeat Mg tomorrow AM. - - Hernandez in place. - Monitor Is/Os. ENDO - - No history of DM2 or thyroid disease. - ICU hyperglycemia protocol. HEME - Anemia: - On arrival with Hgb 14.4. - Following surgery with Hgb 11.1, stable this AM at 10.5. - Drop in Hgb likely 2/2 blood loss in surgery. - Minimal blood at colostomy site this AM, otherwise no bleeding. - Patient is hemodynamically stable. - Continue to monitor CBC daily, H/H PRN new/worsening bleeding or hemodynamic instability. ID - Perforated diverticulitis with leukocytosis: - On arrival with leukocytosis to 19.21, noted on exploratory laparotomy to have perforated diverticulum in sigmoid colon. - Zosyn q8h, renal dosing, for empiric coverage of intra-abdominal infection initiated 06/06. - With improvement in pain and leukocytosis this AM, WBC 14.56 today. - CBC daily. - Monitor for fever. INTEGUMENTARY Perforated diverticulum S/p Sigmoid Colostomy: - Colostomy site with minimal bleeding into bag, tissue appears pink and healthy, not necrotic. - Care per General Surgery. LINES/IV ACCESS - - PIVs intact. - Hernandez in place. D/c when able. DVT PROPHYLAXIS - - Heparin 5000u SQ q8h. - SCDs. Patient is stable for downgrade from ICU level of care to Med/Surg floor later today, care per General Surgery with Hospitalist consult for HTN. Thank you for allowing us to be part of this patient's care. Please refer to Dr. Richardson's documentation for any further recommendations. (2) Pneumoperitoneum: (3) Acute renal failure (ARF): (4) Hypokalemia: (5) Diverticulitis: (6) Abdominal pain: (7) Perforated diverticulum: (8) Presence of sigmoid colostomy: (9) Anemia due to blood loss: Admission and Anticipated Discharge Date Admission Date: June 06, 2020 Supervising Physician Co-Signing Physician Notes Charlee Mcknight was the resident-physician during care of patient. I separately evaluated patient for brody portions of the history and the exam. I was present during the critical portion of medical decision making, and I discussed the case with the resident. I generally agree with the findings and plan except for any additions/exceptions noted. Patient seen and examined at bedside. No acute distress, no adverse events overnight. Patient's blood pressure has improved. His creatinine function is also improved. We will decrease his LR 200 mL/h, continue with NG suction, decreased bowel sounds are appreciated. H&H is stable. Hypokalemia and hypomagnesemia has been replaced. Hydralazine 10 mg every 6 hours as needed systolic blood pressure greater than 160 as patient is n.p.o. Patient is hemodynamically stable to be downgraded to medical floor. I have personally spent 33 minutes of critical care time in the direct management of this patient. This is a life/limb threatening event. This includes time spent evaluating patient, direct bedside care, chart review, placing orders, interpretation of diagnostic studies, discussion with consultants, patient, and/or family members regarding treatment decisions, as well as other required patient management activities. This time is exclusive of all separately billable procedures, and teaching time and separate from and in addition to any other critical care service time. Subjective Patient with one episode of hypotension overnight, otherwise no acute events. Vitals otherwise have been stable and patient saturating well on room air. No acute events on telemetry monitoring overnight. Received potassium repletion for hypokalemia. Comfortable this AM, only complaint is abdominal pain which is significantly improved from admission and is alleviated with PRN pain medication. No nausea or vomiting, no fevers or chills, headache or dizziness, chest pain, palpitations. No SOB but does endorse some pain in abdomen with deep inspiration. Review of Systems Review of Systems: All systems reviewed & are unremarkable except as noted in Subjective Physical Exam Physical Exam: Constitutional: No acute distress HEENT: EOMI, PERRLA, positive NGT Respiratory system: Decreased air entry bilaterally, no wheeze, no rhonchi, mild crackles bilateral lower lobes CVS: RRR, no murmurs, no peripheral edema Abdomen: Soft, mild tenderness, decreased bowel sounds, positive left-sided colostomy with some bloody drainage, surgical dressing in place Extremities: +2 pulses bilaterally DP/PT/radial, no cyanosis Neuro: AAOx3, moves all extremities, no speech abnormalities Psych: Normal mood and affect G/U: Hernandez draining clear yellow urine Skin: no rashes, warm and dry Lymphatic: no cervical or axillary lymphadenopathy Results & Data Results & Data ([facility]) Vital Signs (Past 12 Hours) Vital Signs Temp Pulse Resp BP Pulse Ox 06/07/20 04:50 80 9 L 157/69 H 96 06/07/20 03:49 36.8 C 78 14 142/73 H 95 06/07/20 02:49 75 14 131/71 95 06/07/20 01:49 78 13 137/77 94 06/07/20 00:49 76 12 118/69 95 06/07/20 00:00 80 06/06/20 23:50 36.5 C 78 12 113/68 94 06/06/20 23:39 78 17 111/64 96 06/06/20 22:43 77 10 L 127/65 94 06/06/20 22:13 82 17 123/65 94 06/06/20 21:43 78 11 L 129/67 95 06/06/20 21:13 78 12 85/58 L 95 06/06/20 20:43 78 12 118/76 94 06/06/20 20:13 36.5 C 78 12 126/79 94 06/06/20 19:43 79 16 127/81 93 Resident Activity Tracking Resident Involvement: Resident Care Provided Care Provided: Adult Hospital Medicine (1) Acute renal failure (ARF) Acute renal failure type: unspecified Qualified Code(s): N17.9 - Acute kidney failure, unspecified (2) Sepsis Acute renal failure type: unspecified Sepsis acute organ dysfunction status: with acute organ dysfunction Sepsis type: sepsis due to unspecified organism Severe sepsis acute organ dysfunction type: acute renal failure Severe sepsis shock status: without septic shock Qualified Code(s): A41.9 - Sepsis, unspecified organism; R65.20 - Severe sepsis without septic shock; N17.9 - Acute kidney failure, unspecified (3) Abdominal pain Abdominal location: generalized Qualified Code(s): R10.84 - Generalized abdominal pain
[2020-06-07] MEDS ORDERED: MAGNESIUM SULFATE / D5W 1 GM/100 ML BAG IV ONE (08:12)
[2020-06-07] MEDS: PANTOprazole 40 MG in SYRINGE 0 ML IV SCH (10:18)
--- NOTE | 2020-06-07 15:51 | Billing Data ---
Date of Service June 07, 2020 Coding Level of Care Code Critical Care 1st 30-74 mins Time Spent (min) 33
[2020-06-08] MEDS: LACTATED RINGER'S 1,000 ML IV SCH ×2 (04:55→16:21)
[2020-06-08] MEDS: HEPARIN SOD 5,000 UNIT/0.5 ML VIAL SQ SCH ×3 (04:55→21:57)
[2020-06-08] MEDS: ACETAMINOPHEN 1000 MG/100 ML IV IV SCH ×3 (04:56→21:52)
[2020-06-08] MEDS: PIPERACILLIN/TAZOBACTAM 4.5 GM in DEXTROSE 5% 100 ML IV SCH ×3 (05:44→22:18)
[2020-06-08 06:36] LABS: Basophils # (auto) 0.01 K/uL (0-0.2); Basophils % (auto) 0.1 %; Eosinophils # (auto) 0.25 K/uL (0-0.5); Eosinophils % (auto) 1.7 %; Hematocrit (blood only) 30.8 % (42-52); Hemoglobin 10.3 g/dL (14.0-18.0); Immature Granulocytes # (auto) 0.17 K/uL (0.00-0.02); Immature Granulocytes % (auto) 1.2 %; Mean Corpuscular Hemoglobin 29.4 pg (25-34); Mean Corpuscular Hgb Conc 33.4 g/dL (32-36); Mean Platelet Volume 8.8 fL (7.4-10.4); Monocytes # (auto) 0.74 K/uL (0.11-0.59); Monocytes % (auto) 5.1 %; Neutrophils # (auto) 11.73 K/uL (1.4-6.5); Neutrophils % (auto) 80.9 %; Platelet Count 286 K/uL (130-400); RDW Coefficient of Variation 14.1 % (11.5-14.5); RDW Standard Deviation 45.4 fL (36.4-46.3)
[2020-06-08 07:06] LABS: BUN Creatinine Ratio 18.4 (10-20); Calcium 8.1 mg/dl (8.5-10.1); Est GFR (African American) 66.5; Est GFR (Non-African American) 57.4; Potassium 3.1 mmol/L (3.5-5.1)
--- NOTE | 2020-06-08 08:16 | Surgery Progress Note ---
Date of Service June 08, 2020 Assessment & Plan Admission and Anticipated Discharge Date Admission Date: 06/08/20 Patient is third postoperative day status post a Priya procedure abdominal washout The NG output is been minimal and will remove it may start him on some clear liquids but go slow with oral intake The ostomy is dusky which I sort of expected immune at the time of surgery was the left colon was pretty much short and hard to mobilize even to the splenic flexure but was able to get it through the abdominal wall and patient has significant subcutaneous tissue that made it hard to mobilize the colon through the abdominal wall and subcu body with this usually the area of ischemia goes down to the fascia and since it is a temporary colostomy no major complication is anticipated [facility] surgeons are covering this weekend Subjective Patient without any acute issues stating the NG tube is bothering him the abdominal pain is better than it was Physical Exam Physical Exam: Alert coherent in no distress The abdominal incision with retention sutures is intact the abdomen is distended and is nontender The Nj drain is down in the pelvis serous sanguinous drainage The colostomy is dusky with no output I removed the bag and was able to insert a finger in the colon with really no output Results & Data ([facility]) Vital Signs (Past 12 Hours) Vital Signs Temp Pulse Resp BP Pulse Ox 06/08/20 07:26 37.2 C 86 18 134/83 91 06/07/20 23:16 37.0 C 93 H 18 119/72 91 PG Care Time/CCT Total # of Minutes Spent Total Time Spent with Patient: Total time spent is greater than 50% in coordination of care (as documented) at patient's floor/unit and/or counseling patient: Coding Level of Care Code None
[2020-06-08] MEDS: ICU PROTOCOL FOR HYPERGLYCEMIA SCH (09:59)
[2020-06-08] MEDS: MoRPHine SULFATE 4 MG/ML 1 ML CARP\\VIAL IV PRN ×4 (10:01→23:40)
[2020-06-08] MEDS: PANTOprazole 40 MG in SYRINGE 0 ML IV SCH (12:20)
--- NOTE | 2020-06-08 15:19 | Hospitalist Consultation ---
Date of Consultation June 08, 2020 Assessment & Plan (1) Hypertension: Patient has longstanding history of hypertension. Will monitor his Blood pressure as he recovers from his primary issue. Will slowly reinstitute his home BP meds which include Amlopdipine, chlorthalidone and lisinopril. Will likely start with amlodipine once BP increases. (2) Hyperlipidemia: will hold statin for the moment. (3) Anemia due to blood loss: hemoglobin appears to be stable. (4) Perforated diverticulum: as per primary service. History of Present Illness Reason for Consultation: Medical management of his hypertension Attending Physician: Allan oCrea MD History of Present Illness 59 yo male with history of hypertension is hospitalized for pneumoperitoneum. Consulted for hypertension management. During hospital stay, BP has been relatively low and BP meds have been held as patient was septic from Pneumoperitoneum, Perforated Sigmoid Diverticulitis s/p Sigmoid resection and colostomy. Currently his BP is in normal range without blood pressure medications. Currently patient reports his abdominal pain has improved., Allergies Allergy/AdvReac Type Severity Reaction Status Date / Time No Known Allergies Allergy Verified 06/05/20 14:45 Home Medications Home Medications Medication Instructions Recorded Confirmed Type amlodipine 5 mg PO DAILY 04/13/20 06/06/20 History atorvastatin 20 mg PO QAM 04/13/20 06/06/20 History chlorthalidone 25 mg PO QAM 04/13/20 06/06/20 History ibuprofen 600 mg PO BID 04/13/20 06/06/20 History lisinopril 40 mg PO QAM 04/13/20 06/06/20 History oxycodone-acetaminophen [Percocet] 1 - 2 tab PO .q4-6h PRN #15 tab 06/07/20 Rx Patient History Medical History Acute renal failure (ARF) Diverticulitis Hyperlipidemia Hypertension Hypokalemia Osteoarthritis Pneumoperitoneum Surgical History History of partial knee replacement left History of tooth extraction S/P colon resection (06/06/20) Exploratory Laparotomy, Abdominal wash out, Sigmoid Colon Resection and Priya procedure Dr. Corea 06/06/2020 Status post right partial knee replacement (~03/2020) Social History Smoking Status: Never smoker Second Hand Exposure: Yes ( 15 years ago); Hx Alcohol Use: No Hx Substance Use: No Preferred Language: Amharic Communication Ability: Effective Gauger Chief Delivery Required: No Beliefs That Will Affect Care: None marital status: Current Living Situation: Spouse Feels Safe at Home: Yes Review of Systems Constitutional: no sweats and no malaise Eyes: no diplopia Ear, Nose, Mouth, Throat: no ear pain and no nasal discharge Respiratory: no cough and no dyspnea Cardiovascular: no chest pain and no chest pain with activity Gastrointestinal: no nausea and no vomiting Genitourinary: no dysuria Musculoskeletal: no radicular pain Integumentary: no rash Neurologic: no falls Psychiatric: no hopelessness and no change in appetite Endocrine: no polydipsia Physical Exam Physical Exam: Constitutional: No acute distress HEENT: EOMI, PERRLA, Respiratory system: normal air entry bilaterally, no wheeze, no rhonchi, mild crackles bilateral lower lobes CVS: RRR, no murmurs, no peripheral edema Abdomen: Soft, no ttp, decreased bowel sounds, dusky colostomy, surgical dressing in place Extremities: +2 pulses bilaterally DP/PT/radial, no cyanosis Neuro: AAOx3, moves all extremities, no speech abnormalities Psych: Normal mood and affect G/U: Hernandez draining clear yellow urine Skin: no rashes, warm and dry Lymphatic: no cervical or axillary lymphadenopathy Results & Data Results & Data ([facility]) Vital Signs (Past 12 Hours) Vital Signs Temp Pulse Resp BP Pulse Ox 06/08/20 07:26 37.2 C 86 18 134/83 91 PG Care Time/CCT Total # of Minutes Spent Total Time Spent with Patient: Total time spent is greater than 50% in coordination of care (as documented) at patient's floor/unit and/or counseling patient: Coding Level of Care Code 88027 Inpt Consult Level 3 Diagnoses Hypertension I10 Hyperlipidemia E78.5 Anemia due to blood loss D50.0 Perforated diverticulum K57.80 Time Spent (min) 40
[2020-06-09] MEDS: MoRPHine SULFATE 4 MG/ML 1 ML CARP\\VIAL IV PRN ×6 (02:27→23:15)
[2020-06-09] MEDS: HydrALAZINE HCL 20 MG/ML VIAL IV PRN (02:45)
[2020-06-09] MEDS: LACTATED RINGER'S 1,000 ML IV SCH ×2 (04:33→13:09)
[2020-06-09] MEDS: HEPARIN SOD 5,000 UNIT/0.5 ML VIAL SQ SCH ×3 (05:24→21:59)
[2020-06-09] MEDS: PIPERACILLIN/TAZOBACTAM 4.5 GM in DEXTROSE 5% 100 ML IV SCH ×3 (05:41→21:59)
[2020-06-09] MEDS: ACETAMINOPHEN 1000 MG/100 ML IV IV SCH ×2 (05:51→13:09)
[2020-06-09 07:48] LABS: Basophils # (auto) 0.02 K/uL (0-0.2); Basophils % (auto) 0.1 %; Eosinophils # (auto) 0.21 K/uL (0-0.5); Eosinophils % (auto) 1.5 %; Hematocrit (blood only) 34.5 % (42-52); Hemoglobin 11.4 g/dL (14.0-18.0); Immature Granulocytes # (auto) 0.33 K/uL (0.00-0.02); Immature Granulocytes % (auto) 2.4 %; Lymphocytes # (auto) 1.41 K/uL (1.2-3.4); Lymphocytes % (auto) 10.1 %; Mean Corpuscular Hemoglobin 29.2 pg (25-34); Mean Corpuscular Volume 88.2 fL (80-100); Mean Platelet Volume 8.8 fL (7.4-10.4); Monocytes # (auto) 0.74 K/uL (0.11-0.59); Monocytes % (auto) 5.3 %; Neutrophils # (auto) 11.22 K/uL (1.4-6.5); Neutrophils % (auto) 80.6 %; Platelet Count 321 K/uL (130-400); RDW Coefficient of Variation 13.9 % (11.5-14.5); RDW Standard Deviation 45.3 fL (36.4-46.3); Red Blood Count 3.91 M/uL (4.7-6.1); White Blood Count 13.93 K/uL (4.8-10.8)
[2020-06-09 08:20] LABS: Calcium 8.8 mg/dl (8.5-10.1); Creatinine Clr Calc Pharmacy 89.5 ml/min; Est GFR (Non-African American) 73.3; Potassium 2.9 mmol/L (3.5-5.1)
[2020-06-09] MEDS: AMLODIPINE BESYLATE 5 MG TAB PO SCH (09:36)
--- NOTE | 2020-06-09 11:10 | Surgery Progress Note ---
Date of Service June 09, 2020 Assessment & Plan (1) Perforated diverticulum: ambulate WBC down await return of bowel function, will not advance diet ambulate con't IVF Admission and Anticipated Discharge Date Admission Date: June 06, 2020 Subjective POD #3 Hartmanns pain controlled taking po OK needs to walk more Review of Systems Constitutional: no fever and no chills Respiratory: no cough and no dyspnea Cardiovascular: no chest pain Gastrointestinal: + abdominal pain and + change in bowel habits; no nausea and no vomiting no gas in bag Genitourinary: no dysuria Musculoskeletal: no back pain Physical Exam Constitutional: well developed and well nourished Neck: trachea midline Respiratory: normal respiratory effort, lungs clear to auscultation Cardiovascular: RRR, no murmur, no edema Gastrointestinal (Abdomen): Inspection/Auscultation: + abdomen distended; + abnormal bowel sounds (decreased) Percussion/Palpation: + abdomen tender; no guarding ostomy purple but viable; retention sutures in place; drain serous Results & Data ([facility]) Vital Signs (Past 12 Hours) Vital Signs Temp Pulse Pulse Resp BP BP Pulse Ox 06/09/20 07:21 36.8 C 89 17 147/92 H 94 06/09/20 06:13 37.6 C H 93 H 18 149/89 H 90 06/09/20 03:11 37.2 C 80 18 147/90 H 97 06/09/20 03:00 147/90 H 06/09/20 02:41 37.4 C 89 16 170/97 H 91 06/08/20 23:27 37.3 C 96 H 16 145/95 H 90
[2020-06-09] MEDS: ICU PROTOCOL FOR HYPERGLYCEMIA SCH (11:31)
[2020-06-09] MEDS: PANTOprazole 40 MG in SYRINGE 0 ML IV SCH (12:24)
[2020-06-09] MEDS: ONDANSETRON INJ 2 MG/ML 2 ML VIAL IV PRN (13:03)
--- NOTE | 2020-06-09 14:38 | Hospitalist Progress Note ---
Date of Service June 09, 2020 Assessment & Plan (1) Perforated diverticulum: S/p Exploratory Laparotomy, Abdominal wash out, Sigmoid Colon Resection and Priya procedure with Dr. Corea on 06/06. - Post-op care per primary service. - Continue Zosyn - Still without much ostomy output. (2) Hypertension: Patient has longstanding history of hypertension. BP as low as 85/60 in setting of perforated colon. BP is 145/90 today. - Continue amlodipine - Holding home chlorthalidone and lisinopril. Will restart as needed. (3) Hyperlipidemia: - Will hold statin for the moment. Restart likely on discharge or as bowel function improves. (4) Anemia due to blood loss: Due to surgery, expected. - Hemoglobin appears to be stable ~11 at this time. - Monitor occasionally. (5) DVT prophylaxis: Heparin per primary team Admission and Anticipated Discharge Date Admission Date: June 06, 2020 Subjective Some abdominal pain. No output from ostomy at this point. Reports no fevers/chills, chest pain, shortness of breath, nausea, or vomiting. Physical Exam Constitutional: WD/WN, vitals as above Eyes: EOM intact bilaterally; no conjunctival abnormality ENMT: external ear and nose normal, oropharynx normal Neck: trachea midline, no thyromegaly normal visual inspection Respiratory: normal respiratory effort, lungs clear to auscultation no respiratory distress Cardiovascular: RRR, no murmur, no edema Gastrointestinal (Abdomen): Inspection/Auscultation: + abdominal surgical incision (Dressed. Ostomy without output.), + abdominal surgical drain present (Serous fluid) and + hypoactive bowel sounds; abdomen not distended Musculoskeletal: no cyanosis or clubbing, extremities motor strength 5/5 Skin: no rashes, warm and dry Neurologic: moves all extremities and awake Psychiatric: Orientation: alert, oriented to person and cooperative Results & Data Results & Data ([facility]) Vital Signs (Past 12 Hours) Vital Signs Temp Pulse Pulse Resp BP BP Pulse Ox 06/09/20 07:21 36.8 C 89 17 147/92 H 94 06/09/20 06:13 37.6 C H 93 H 18 149/89 H 90 06/09/20 03:11 37.2 C 80 18 147/90 H 97 06/09/20 03:00 147/90 H 06/09/20 02:41 37.4 C 89 16 170/97 H 91 PG Care Time/CCT Total # of Minutes Spent Total Time Spent with Patient: Total time spent is greater than 50% in coordination of care (as documented) at patient's floor/unit and/or counseling patient: Coding Level of Care Code 90385 Subseq Hosp Care Lvl 2 Diagnoses Perforated diverticulum K57.80 Hypertension I10 Hyperlipidemia E78.5 Anemia due to blood loss D50.0 DVT prophylaxis Z29.9
[2020-06-09] MEDS: MoRPHine SULFATE 2 MG/ML CARP IV PRN (16:09)
[2020-06-10] MEDS: LACTATED RINGER'S 1,000 ML IV SCH ×3 (00:01→17:46)
[2020-06-10] MEDS: MoRPHine SULFATE 4 MG/ML 1 ML CARP\\VIAL IV PRN ×2 (03:34→13:32)
[2020-06-10] MEDS: HEPARIN SOD 5,000 UNIT/0.5 ML VIAL SQ SCH ×2 (06:11→13:30)
[2020-06-10] MEDS: PIPERACILLIN/TAZOBACTAM 4.5 GM in DEXTROSE 5% 100 ML IV SCH ×3 (06:12→21:39)
[2020-06-10] MEDS: MoRPHine SULFATE 2 MG/ML CARP IV PRN (06:26)
[2020-06-10 07:32] LABS: Basophils # (auto) 0.01 K/uL (0-0.2); Basophils % (auto) 0.1 %; Eosinophils # (auto) 0.27 K/uL (0-0.5); Hematocrit (blood only) 33.1 % (42-52); Immature Granulocytes # (auto) 0.46 K/uL (0.00-0.02); Immature Granulocytes % (auto) 3.4 %; Lymphocytes # (auto) 1.53 K/uL (1.2-3.4); Lymphocytes % (auto) 11.4 %; Mean Corpuscular Hemoglobin 29.4 pg (25-34); Mean Corpuscular Hgb Conc 33.2 g/dL (32-36); Mean Corpuscular Volume 88.5 fL (80-100); Mean Platelet Volume 8.8 fL (7.4-10.4); Monocytes # (auto) 0.83 K/uL (0.11-0.59); Monocytes % (auto) 6.2 %; Neutrophils # (auto) 10.27 K/uL (1.4-6.5); Neutrophils % (auto) 76.9 %; Platelet Count 313 K/uL (130-400); RDW Standard Deviation 45.3 fL (36.4-46.3); Red Blood Count 3.74 M/uL (4.7-6.1); White Blood Count 13.37 K/uL (4.8-10.8)
[2020-06-10 07:37] LABS: BUN Creatinine Ratio 17.3 (10-20); Est GFR (African American) 87.8; Est GFR (Non-African American) 75.8; Potassium 3.2 mmol/L (3.5-5.1)
--- NOTE | 2020-06-10 07:45 | Surgery Progress Note ---
Date of Service June 10, 2020 Assessment & Plan (1) S/P colon resection: advance slowly to fulls PT consult IV toradol slow progress Admission and Anticipated Discharge Date Admission Date: June 06, 2020 Subjective pain improving not walking well taking po well Review of Systems Constitutional: no fever Respiratory: no cough and no dyspnea Cardiovascular: no chest pain Gastrointestinal: + abdominal pain; no nausea and no vomiting Genitourinary: no dysuria Physical Exam Constitutional: no acute distress Neck: trachea midline Respiratory: normal respiratory effort, lungs clear to auscultation Cardiovascular: RRR, no murmur, no edema Gastrointestinal (Abdomen): Inspection/Auscultation: abdomen normal to inspection, + abdomen distended and normal bowel sounds Percussion/Palpation: + abdomen tender; no guarding and abdomen not rigid ostomy OK; fluid but no flatus yet Musculoskeletal: Head/Neck/Chest: normocephalic and head atraumatic Skin: no rashes, warm and dry Results & Data ([facility]) Vital Signs (Past 12 Hours) Vital Signs Temp Pulse Resp BP BP Pulse Ox 06/10/20 07:33 37.1 C 92 H 16 158/88 H 90 06/10/20 03:43 36.8 C 96 H 18 149/92 H 96 06/09/20 22:52 37.3 C 97 H 18 137/88 91
[2020-06-10] MEDS: AMLODIPINE BESYLATE 5 MG TAB PO SCH (08:56)
[2020-06-10] MEDS: KETOROLAC TROMETHAMINE 15 MG/ML VIAL IV PRN (08:57)
[2020-06-10] MEDS: ONDANSETRON INJ 2 MG/ML 2 ML VIAL IV PRN ×2 (09:57→23:16)
[2020-06-10] MEDS: PANTOprazole 40 MG in SYRINGE 0 ML IV SCH (10:02)
[2020-06-10] MEDS: HYDROmorphone INJ 0.5 MG/0.5 ML SYR IV PRN ×4 (14:27→21:38)
--- NOTE | 2020-06-10 14:28 | Surgery Progress Note ---
Date of Service June 10, 2020 Assessment & Plan Admission and Anticipated Discharge Date Admission Date: June 06, 2020 Subjective called to see patient with bleeding from wound large hematoma noted after removing drain and opening incision at edges majority evacuated manually and will begin packing dressing changes Results & Data ([facility]) Vital Signs (Past 12 Hours) Vital Signs Temp Pulse Resp BP Pulse Ox 06/10/20 07:33 37.1 C 92 H 16 158/88 H 90 06/10/20 03:43 36.8 C 96 H 18 149/92 H 96
--- NOTE | 2020-06-10 15:45 | Hospitalist Progress Note ---
Date of Service June 10, 2020 Assessment & Plan (1) Perforated diverticulum: S/p Exploratory Laparotomy, Abdominal wash out, Sigmoid Colon Resection and Priya procedure with Dr. Corea on 06/06. - Post-op care per primary service. - Continue Zosyn - On 06/10, had large amount of blood at zack site and in ostomy bag. Seen with Dr. Diamond who noted likely a liquifying hematoma that was leaking into the colostomy bag. Dr. Diamond evacuated as much as was able and recommended TID dressing changes. (2) Hypertension: Patient has longstanding history of hypertension. BP as low as 85/60 in setting of perforated colon. BP is 130/85 today. - Continue amlodipine - Holding home chlorthalidone and lisinopril. Will restart as needed. (3) Hyperlipidemia: - Will hold statin for the moment. Restart likely on discharge or as bowel function improves. (4) Anemia due to blood loss: Due to surgery, expected. - Hemoglobin appears to be stable ~11 at this time. - Monitor occasionally. (5) DVT prophylaxis: Held heparin per surgery on 06/10 for bleeding at the surgical site. Admission and Anticipated Discharge Date Admission Date: June 06, 2020 Subjective Called urgently to the bedside by RN for large amount of blood from surgical site and inside colostomy bag. Stayed with the patient and seen with Dr. Diamond who feels a large hematoma was under the skin and is liquifying. Still with substantial abdominal pain. Physical Exam Constitutional: WD/WN, vitals as above Eyes: EOM intact bilaterally; no conjunctival abnormality ENMT: external ear and nose normal, oropharynx normal Neck: trachea midline, no thyromegaly normal visual inspection Respiratory: normal respiratory effort, lungs clear to auscultation no respiratory distress Cardiovascular: RRR, no murmur, no edema Gastrointestinal (Abdomen): Inspection/Auscultation: + abdominal surgical incision (Frankly bloody. Blood in ostomy bag.), + abdominal surgical drain present (Serous fluid) and + hypoactive bowel sounds; abdomen not distended Musculoskeletal: no cyanosis or clubbing, extremities motor strength 5/5 Skin: no rashes, warm and dry Neurologic: moves all extremities and awake Psychiatric: Orientation: alert, oriented to person and cooperative Results & Data Results & Data ([facility]) Vital Signs (Past 12 Hours) Vital Signs Temp Pulse Resp BP BP Pulse Ox 06/10/20 15:10 36.8 C 97 H 16 132/86 92 06/10/20 14:54 37.3 C 96 H 18 133/90 91 06/10/20 13:55 90 156/100 H 06/10/20 07:33 37.1 C 92 H 16 158/88 H 90 06/10/20 03:43 36.8 C 96 H 18 149/92 H 96 PG Care Time/CCT Total # of Minutes Spent Total Time Spent with Patient: Total time spent is greater than 50% in coordination of care (as documented) at patient's floor/unit and/or counseling patient: Coding Level of Care Code 44102 Subseq Hosp Care Lvl 3 Diagnoses Perforated diverticulum K57.80 Hypertension I10 Hyperlipidemia E78.5 Anemia due to blood loss D50.0 DVT prophylaxis Z29.9
[2020-06-10] MEDS ORDERED: HYDROmorphone INJ 1 MG/ML SYRINGE IV PRN (16:58)
[2020-06-10] MEDS: POTASSIUM CHLORIDE 10 MEQ TABCR PO SCH ×2 (17:00→20:59)
[2020-06-10 17:44] LABS: Hematocrit (blood only) 28.4 % (42-52); Hemoglobin 9.4 g/dL (14.0-18.0); Mean Corpuscular Hgb Conc 33.1 g/dL (32-36); Mean Corpuscular Volume 87.7 fL (80-100); Mean Platelet Volume 8.4 fL (7.4-10.4); Platelet Count 273 K/uL (130-400); RDW Coefficient of Variation 13.7 % (11.5-14.5); RDW Standard Deviation 44.4 fL (36.4-46.3); Red Blood Count 3.24 M/uL (4.7-6.1); White Blood Count 12.68 K/uL (4.8-10.8)
[2020-06-10 22:00] LABS: Hematocrit (blood only) 30.9 % (42-52); Hemoglobin 9.8 g/dL (14.0-18.0); Mean Corpuscular Hemoglobin 27.9 pg (25-34); Mean Corpuscular Hgb Conc 31.7 g/dL (32-36); Mean Platelet Volume 8.3 fL (7.4-10.4); Platelet Count 288 K/uL (130-400); RDW Coefficient of Variation 13.8 % (11.5-14.5); RDW Standard Deviation 44.2 fL (36.4-46.3); Red Blood Count 3.51 M/uL (4.7-6.1); White Blood Count 13.78 K/uL (4.8-10.8)
[2020-06-11] MEDS: MoRPHine SULFATE 4 MG/ML 1 ML CARP\\VIAL IV PRN ×5 (00:33→18:13)
[2020-06-11] MEDS: KETOROLAC TROMETHAMINE 15 MG/ML VIAL IV PRN ×2 (03:46→09:58)
[2020-06-11] MEDS: LACTATED RINGER'S 1,000 ML IV SCH ×3 (05:30→20:34)
[2020-06-11] MEDS: PIPERACILLIN/TAZOBACTAM 4.5 GM in DEXTROSE 5% 100 ML IV SCH ×3 (05:30→21:35)
[2020-06-11 06:35] LABS: Hematocrit (blood only) 29.5 % (42-52); Hemoglobin 9.5 g/dL (14.0-18.0); Mean Corpuscular Hemoglobin 28.5 pg (25-34); Mean Corpuscular Hgb Conc 32.2 g/dL (32-36); Mean Corpuscular Volume 88.6 fL (80-100); Mean Platelet Volume 8.4 fL (7.4-10.4); Platelet Count 296 K/uL (130-400); RDW Coefficient of Variation 13.6 % (11.5-14.5); RDW Standard Deviation 44.5 fL (36.4-46.3); Red Blood Count 3.33 M/uL (4.7-6.1)
[2020-06-11 07:06] LABS: Calcium 7.8 mg/dl (8.5-10.1); Creatinine Clr Calc Pharmacy 101.4 ml/min; Est GFR (African American) 98.8; Est GFR (Non-African American) 85.2; Magnesium 2.2 mg/dl (1.8-2.4); Potassium 3.7 mmol/L (3.5-5.1)
[2020-06-11] MEDS: ONDANSETRON INJ 2 MG/ML 2 ML VIAL IV PRN (07:40)
--- NOTE | 2020-06-11 08:59 | Surgery Progress Note ---
Date of Service June 11, 2020 Assessment & Plan (1) Presence of sigmoid colostomy: Admission and Anticipated Discharge Date Admission Date: June 06, 2020 At this time hopefully the patient will start mobilizing fluids and also get his GI function back but I did mention to him that if there is no progress as far as his oral intake or GI function by tomorrow we will have to start hyperalimentation All questions were answered Lab noted Subjective Baez this morning feels bloated not nauseated at tolerated some ice cream last night Events over the weekend were reviewed with him including bleeding from the incision that required opening it and packing it with 4 x 4 gauze Physical Exam Physical Exam: Is alert coherent no real distress The abdomen is distended but soft no localized tenderness Dressing was taken off the abdominal incision and 4 x 4 gauze were removed with a Q-tip I probed the open areas and the fascia seems to be intact in fact the patient has retention sutures in place The colostomy has had no output is viable although bit dusky I inserted a finger and there is no tightness in the fascia The [place] drainage is serous sanguinous Results & Data ([facility]) Vital Signs (Past 12 Hours) Vital Signs Temp Pulse Pulse Resp BP BP Pulse Ox 06/11/20 08:41 36.8 C 89 17 152/95 H 91 06/11/20 04:14 37.4 C 97 H 16 137/91 90 06/10/20 23:51 37.0 C 103 H 18 134/92 90 PG Care Time/CCT Total # of Minutes Spent Total Time Spent with Patient: Total time spent is greater than 50% in coordination of care (as documented) at patient's floor/unit and/or counseling patient: Coding Level of Care Code None Diagnoses Presence of sigmoid colostomy Z93.3
[2020-06-11] MEDS: PANTOprazole 40 MG in SYRINGE 0 ML IV SCH (11:48)
--- NOTE | 2020-06-11 15:06 | Hospitalist Progress Note ---
Date of Service June 11, 2020 Assessment & Plan (1) Perforated diverticulum: S/p Exploratory Laparotomy, Abdominal wash out, Sigmoid Colon Resection and Priya procedure with Dr. Corea on 06/06. - Post-op care per primary service. - Continue Zosyn - On 06/10, had large amount of blood at zack site and in ostomy bag. Seen with Dr. Diamond who noted likely a liquifying hematoma that was leaking into the colostomy bag. Dr. Diamond evacuated as much as was able and recommended TID dressing changes. Resolved by 06/11. Hgb dropped slightly to 9.5, but was then stable. (2) Hypertension: Patient has longstanding history of hypertension. BP as low as 85/60 in setting of perforated colon. BP is 105/60 today. - Held amlodipine on 06/11 for bleeding a lower BP. - Holding home chlorthalidone and lisinopril. Will restart as needed. (3) Hyperlipidemia: - Will hold statin for the moment. Restart likely on discharge or as bowel function improves. (4) Anemia due to blood loss: Due to surgery, expected. - Hemoglobin was stable ~11 until 06/10 when it dropped to 9.5 at the time of surgical site bleeding. Stable on 06/11. - Monitor occasionally. (5) DVT prophylaxis: Held heparin per surgery on 06/10 for bleeding at the surgical site. Admission and Anticipated Discharge Date Admission Date: June 06, 2020 Subjective Doing better today. Less pain. No further bleeding after re-pack yesterday. Physical Exam Constitutional: WD/WN, vitals as above Eyes: EOM intact bilaterally; no conjunctival abnormality ENMT: external ear and nose normal, oropharynx normal Neck: trachea midline, no thyromegaly normal visual inspection Respiratory: normal respiratory effort, lungs clear to auscultation no respiratory distress Cardiovascular: RRR, no murmur, no edema Gastrointestinal (Abdomen): Inspection/Auscultation: + abdominal surgical incision (No ostomy output. Clean bandages.), + abdominal surgical drain present (Serous fluid) and + hypoactive bowel sounds; abdomen not distended Musculoskeletal: no cyanosis or clubbing, extremities motor strength 5/5 Skin: no rashes, warm and dry Neurologic: moves all extremities and awake Psychiatric: Orientation: alert, oriented to person and cooperative Results & Data Results & Data ([facility]) Vital Signs (Past 12 Hours) Vital Signs Temp Pulse Pulse Pulse Resp BP BP 06/11/20 12:55 36.9 C 66 16 105/58 L 06/11/20 11:55 36.7 C 73 16 123/63 06/11/20 09:52 90 148/97 H 06/11/20 08:41 36.8 C 89 17 152/95 H 06/11/20 04:14 37.4 C 97 H 16 137/91 Pulse Ox 06/11/20 12:55 92 06/11/20 11:55 94 06/11/20 09:52 92 06/11/20 08:41 91 06/11/20 04:14 90 PG Care Time/CCT Total # of Minutes Spent Total Time Spent with Patient: Total time spent is greater than 50% in coordination of care (as documented) at patient's floor/unit and/or counseling patient: Coding Level of Care Code 48222 Subseq Hosp Care Lvl 2 Diagnoses Perforated diverticulum K57.80 Hypertension I10 Hyperlipidemia E78.5 Anemia due to blood loss D50.0 DVT prophylaxis Z29.9
[2020-06-12] MEDS: MoRPHine SULFATE 4 MG/ML 1 ML CARP\\VIAL IV PRN ×2 (01:11→09:41)
[2020-06-12] MEDS: LACTATED RINGER'S 1,000 ML IV SCH ×2 (06:10→13:56)
[2020-06-12] MEDS: PIPERACILLIN/TAZOBACTAM 4.5 GM in DEXTROSE 5% 100 ML IV SCH ×3 (06:10→21:28)
[2020-06-12 06:48] LABS: Creatinine Clr Calc Pharmacy 100.3 ml/min; Est GFR (African American) 97.6; Est GFR (Non-African American) 84.2
[2020-06-12] MEDS: ONDANSETRON INJ 2 MG/ML 2 ML VIAL IV PRN (09:41)
--- NOTE | 2020-06-12 10:22 | Surgery Progress Note ---
Date of Service June 12, 2020 Assessment & Plan (1) S/P colon resection: POD#6 abdominal washout, sigmoid colon resection, Priya's colostomy No output from ostomy thus far, if continues will consider starting TPN tomorrow Continue on full liquid diet as tolerates On IV zosyn Abdominal wound packing changed at bedside, wound packed with 4x4 gauze Encourage out of bed, in chair, and ambulation throughout the day Appreciate medicine assistance with patient Pt seen and examined with Dr. Corea Admission and Anticipated Discharge Date Admission Date: June 06, 2020 Subjective Patient says he feels good overall. Denies nausea/vomiting. Not very hungry, but tolerating small amounts of full liquids. Feels abdominal "rumblings". Pain has been tolerable. Physical Exam Physical Exam: awake/alert Gastrointestinal (Abdomen): Inspection/Auscultation: + abdominal surgical incision (midline retention sutures in place, packing with [id number], serosang) and + abdominal surgical drain present ([place] serosangenious ) Percussion/Palpation: + abdomen tender (appropriately ttp ) and abdomen soft ostomy with scant drainage, appears viable, slightly dusky Results & Data ([facility]) Vital Signs (Past 12 Hours) Vital Signs Temp Pulse Resp BP Pulse Ox 06/12/20 07:26 37.5 C 87 16 135/85 95 06/11/20 23:37 37.1 C 89 16 128/77 92 PG Care Time/CCT Total # of Minutes Spent Total Time Spent with Patient: Total time spent is greater than 50% in coordination of care (as documented) at patient's floor/unit and/or counseling patient: Coding Level of Care Code None Diagnoses S/P colon resection Z90.49
[2020-06-12] MEDS ORDERED: ONDANSETRON INJ 2 MG/ML 2 ML VIAL IV ONE (11:01)
--- NOTE | 2020-06-12 11:06 | XRay Report ---
KUB CLINICAL HISTORY: Ileus. FINDINGS: 2 AP supine abdominal radiographs are correlated with abdominal CT dated 06/06/2020. A surgi ondina drain is noted in the pelvis. There is gaseous distention of the small bowel loops which measure up to 5 cm in diameter. Gas is also seen within the right colon. No evidence of intraperitoneal free air is seen on these supine images. Numerous phleboliths are observed in the pelvis. There are midlin e skin clips. The skeletal structures appear intact. Lumbosacral spondylosis is noted. IMPRESSION: There is gaseous distention of the small bowel loops which could represent a postoperativ e ileus or possibly developing bowel obstruction. Clinical correlation will be essential. Electronically signed by: Corey Garcia M.D. 06/12/2020 11:05 AM
[2020-06-12] MEDS ORDERED: TPN/PPN CONSULT PHARMACY PRN (11:52)
[2020-06-12] MEDS ORDERED: TPN/PPN CONSULT PHARMACY STA (11:56)
--- NOTE | 2020-06-12 11:58 | Surgery Progress Note ---
Date of Service June 12, 2020 Assessment & Plan (1) S/P colon resection: The x-ray finding was discussed with the patient and we have discussed even yesterday the possibility of placing a line for hyperalimentation if his oral intake was not sufficient at this time he had an emesis we will cut this back to an n.p.o. except water sips and meds permission was given and consented for PICC line placement and order was given for hyperalimentation Suspect the primary problem still an ileus from the significant peritonitis that he has had All questions were answered Present on Admission?: Yes Admission and Anticipated Discharge Date Admission Date: June 06, 2020 Subjective Patient had approximately 900 cc emesis at 1030 this morning it happened after dressing was changed on the incision he had an emesis nauseated at that time the contents were dark green At the present time he states he feels fine although he is not very hungry not nauseated Physical Exam Physical Exam: Patient is resting comfortable without complaints The abdomen is fairly soft although still distended similar to what he had this morning no real tympanism The ileostomy without output Results & Data ([facility]) Vital Signs (Past 12 Hours) Vital Signs Temp Pulse Resp BP Pulse Ox 06/12/20 07:26 37.5 C 87 16 135/85 95 KUB done approximately 1045 showed the pattern may be ileus most likely with gas in the colon but small bowel diameter at 3 to 4 cm PG Care Time/CCT Total # of Minutes Spent Total Time Spent with Patient: Total time spent is greater than 50% in coordination of care (as documented) at patient's floor/unit and/or counseling patient: Coding Level of Care Code None Diagnoses S/P colon resection Z90.49
[2020-06-12 12:39] LABS: Calcium 7.7 mg/dl (8.5-10.1); Creatinine Clr Calc Pharmacy 95.5 ml/min; Est GFR (African American) 91.9; Est GFR (Non-African American) 79.3; Magnesium 2.4 mg/dl (1.8-2.4); Phosphorus 3.1 mg/dl (2.5-4.9); Potassium 3.8 mmol/L (3.5-5.1)
[2020-06-12] MEDS ORDERED: DEXTROSE 10% 1,000 ML IV PRN (12:47)
--- NOTE | 2020-06-12 12:50 | Pharmacy Report ---
Pharmacy PN Initial Consult - Date of Service June 12, 2020 - Scope Pharmacy has been consulted to manage parenteral nutrition orders and order appropriate labs. As part of the Nutrition Support Team guidelines, pharmacy will work in conjunction with dietary when determining the patients caloric needs. - Subjective The patient is a 59 year old M admitted on 06/06/20 13:20 for BOWEL PERFORATION. Patient is to receive parenteral nutrition for prolonged NPO status. Pertinent PMH: - Objective Height: 5 ft 11 in Weight: 102.5 kg Diet: NPO Vascular Access:: currently peripheral will be receiving PICC Intake & Output (Last 24Hrs): Intake & Output 06/10/20 06/11/20 06/12/20 06/13/20 06:59 06:59 06:59 06:59 Intake Total 3415 / 3415 4055.000 / 4055.000 3216.666 / 3216.666 120 / 120 Output Total 2140 / 2140 1850 / 1850 1460 / 1460 1450 / 1450 Balance 1275 / 1275 2205.000 / 2205.000 1756.666 / 1756.666 -1330 / -1330 Weight 102.5 kg Laboratory Data (Last 24 Hrs):: 06/12/20 06/12/20 05:59 12:05 Sodium 140 Potassium 3.8 Chloride 107 Carbon Dioxide 28 BUN 16 Creatinine 0.99 1.04 Glucose 99 Calcium 7.7 L Phosphorus 3.1 Magnesium 2.4 Nutrition Assessment:: Please refer to the Notes section of the EMR for the most recent cook relief note. - Assessment Mr Fletcher is a 59 y/o M who is POD 6 for colon resection. Patient has not had return of bowel function. - Plan For day 1 of PN administration, the following will be ordered: Macronutrients Amino acids 90 grams/day Dextrose 100 grams/day Lipids 50 grams/day Micronutrients Combined electrolytes 20 mL - contains 35 mEq Na, 20 meq K, 4.5 mEq Ca, 5 mEq Mg, 35 mEq Cl, 29.5 mEq acetate per 20 mL Sodium phosphate -- MMol Sodium chloride 70 mEq Sodium acetate 70 mEq Potassium phosphate 24 mMol Potassium chloride -- mEq Potassium acetate -- mEq Magnesium sulfate -- mEq Calcium gluconate -- mEq Multivitamins 10 mL Trace Elements 10 mL Additional additives: folic acid 1 mg and thiamine 100 mg Total volume 2400 mL to be infused over 24 hrs will provide 1200 kcal/day Final osmolarity 774 mOsm/L (maximum for PPN is 900 mOsm/L) Labs to be ordered per PN order protocol of note Dr Corea wants a total volume of 100 mL/hr regardless of site of access Pharmacy will follow and adjust parenteral nutrition orders on a daily basis. Thank you.
[2020-06-12] MEDS: KETOROLAC TROMETHAMINE 15 MG/ML VIAL IV PRN (13:21)
[2020-06-12] MEDS: PANTOprazole 40 MG in SYRINGE 0 ML IV SCH (13:56)
[2020-06-12] MEDS ORDERED: Custom Peripheral Pn 2,400 ML in TPN BAG 0 ML IV SCH (16:00)
--- NOTE | 2020-06-12 16:39 | Hospitalist Progress Note ---
Date of Service June 12, 2020 Assessment & Plan (1) Perforated diverticulum: S/p Exploratory Laparotomy, Abdominal wash out, Sigmoid Colon Resection and Priya procedure with Dr. Corea on 06/06. - Post-op care per primary service. - Continue Zosyn - On 06/10, had large amount of blood at [place] site and in ostomy bag. Seen with Dr. Diamond who noted likely a liquifying hematoma that was leaking into the colostomy bag. Dr. Diamond evacuated as much as was able and recommended TID dressing changes. Resolved by 06/11. Hgb dropped slightly to 9.5, but was then stable. - No issues on 06/12. (2) Hypertension: Patient has longstanding history of hypertension. BP as low as 85/60 in setting of perforated colon. BP is 150/90 today. - Held amlodipine on 06/11 for bleeding a lower BP; will restart 06/13. - Holding home chlorthalidone and lisinopril. Will restart as needed. (3) Hyperlipidemia: - Will hold statin for the moment. Restart likely on discharge or as bowel function improves. (4) Anemia due to blood loss: Due to surgery, expected. - Hemoglobin was stable ~11 until 06/10 when it dropped to 9.5 at the time of surgical site bleeding. Stable on 06/11. - Monitor occasionally. (5) DVT prophylaxis: Held heparin per surgery on 06/10 for bleeding at the surgical site. - Restart at primary team's discretion. Admission and Anticipated Discharge Date Admission Date: June 06, 2020 Subjective Some emesis today when packing was done without any pain medication. Made him nauseated and he threw up. At this point, more comfortable with pain meds and packing done. Given more Zofran. Reports no fevers/chills, chest pain, shortness of breath. Physical Exam Constitutional: WD/WN, vitals as above Eyes: EOM intact bilaterally; no conjunctival abnormality ENMT: external ear and nose normal, oropharynx normal Neck: trachea midline, no thyromegaly normal visual inspection Respiratory: normal respiratory effort, lungs clear to auscultation no respiratory distress Cardiovascular: RRR, no murmur, no edema Gastrointestinal (Abdomen): Inspection/Auscultation: + abdominal surgical incision (No ostomy output. Clean bandages.), + abdominal surgical drain present (Serous fluid) and + hypoactive bowel sounds; abdomen not distended Musculoskeletal: no cyanosis or clubbing, extremities motor strength 5/5 Skin: no rashes, warm and dry Neurologic: moves all extremities and awake Psychiatric: Orientation: alert, oriented to person and cooperative Results & Data Results & Data ([facility]) Vital Signs (Past 12 Hours) Vital Signs Temp Pulse Pulse Resp BP Pulse Ox 06/12/20 15:45 37.5 C 88 18 148/88 H 91 06/12/20 07:26 37.5 C 87 16 135/85 95 PG Care Time/CCT Total # of Minutes Spent Total Time Spent with Patient: Total time spent is greater than 50% in coordination of care (as documented) at patient's floor/unit and/or counseling patient: Coding Level of Care Code 99829 Subseq Hosp Care Lvl 2 Diagnoses Perforated diverticulum K57.80 Hypertension I10 Hyperlipidemia E78.5 Anemia due to blood loss D50.0 DVT prophylaxis Z29.9
[2020-06-13] MEDS: PIPERACILLIN/TAZOBACTAM 4.5 GM in DEXTROSE 5% 100 ML IV SCH ×3 (05:15→21:28)
[2020-06-13] MEDS: KETOROLAC TROMETHAMINE 15 MG/ML VIAL IV PRN (05:15)
[2020-06-13 06:29] LABS: Basophils # (auto) 0.01 K/uL (0-0.2); Basophils % (auto) 0.1 %; Eosinophils # (auto) 0.34 K/uL (0-0.5); Eosinophils % (auto) 2.5 %; Hematocrit (blood only) 26.6 % (42-52); Hemoglobin 8.8 g/dL (14.0-18.0); Immature Granulocytes # (auto) 0.44 K/uL (0.00-0.02); Immature Granulocytes % (auto) 3.3 %; Lymphocytes # (auto) 1.48 K/uL (1.2-3.4); Lymphocytes % (auto) 10.9 %; Mean Corpuscular Hemoglobin 29.3 pg (25-34); Mean Corpuscular Hgb Conc 33.1 g/dL (32-36); Mean Corpuscular Volume 88.7 fL (80-100); Mean Platelet Volume 8.5 fL (7.4-10.4); Monocytes # (auto) 0.75 K/uL (0.11-0.59); Monocytes % (auto) 5.5 %; Neutrophils % (auto) 77.7 %; Platelet Count 307 K/uL (130-400); RDW Coefficient of Variation 13.6 % (11.5-14.5); RDW Standard Deviation 43.8 fL (36.4-46.3); White Blood Count 13.52 K/uL (4.8-10.8)
[2020-06-13 07:06] LABS: BUN Creatinine Ratio 17.2 (10-20); Calcium 8.3 mg/dl (8.5-10.1); Creatinine Clr Calc Pharmacy 106.4 ml/min; Est GFR (African American) 97.6; Est GFR (Non-African American) 84.2; Magnesium 2.3 mg/dl (1.8-2.4); Potassium 3.4 mmol/L (3.5-5.1)
[2020-06-13 07:09] LABS: Bilirubin,Total 0.3 mg/dl (0.2-1); Phosphorus 3.5 mg/dl (2.5-4.9)
--- NOTE | 2020-06-13 07:51 | XRay Report ---
KUB HISTORY: follow up ileus COMPARISON: KUB 06/12/2020. FINDINGS: Surgical drain is noted within the deep pelvis. Mildly dilated gas-filled loops of small brannon wel have slightly improved. No renal calculi. No ureteral calculi. No pneumoperitoneum or pneumatosi s. IMPRESSION: Slight improvement in the mildly dilated gas-filled loops of small bowel. ACT 112: Negative or not required by law. Electronically signed by: Jose Manuel Chauhan M.D. 06/13/2020 7:49 AM
--- NOTE | 2020-06-13 08:00 | Surgery Progress Note ---
Date of Service June 13, 2020 Assessment & Plan (1) S/P colon resection: The patient is approximately a week postop abdominal washout with creation of colostomy and sigmoid resection Priya procedure At this point I would like to repeat a CT scan of the abdomen to rule out any abscess formation since he has not really returned any significant GI function and his white count is still elevated We will insert an NG tube at this time and proceed with CT scan of the abdomen and pelvis with oral and IV contrast later today Present on Admission?: Yes Admission and Anticipated Discharge Date Admission Date: June 06, 2020 Subjective Baez feels his abdomen is more distended he has not had no heartburn although he has some hiccups Physical Exam Physical Exam: He is alert coherent comfortable except for the belly being distended The abdomen is distended it is nontender has tympanitic lower incision is intact no cellulitis the colostomy is starting to put out some liquid stool Results & Data ([facility]) Vital Signs (Past 12 Hours) Vital Signs Temp Pulse Resp BP Pulse Ox 06/13/20 06:46 37.3 C 83 16 154/85 H 91 06/12/20 23:16 37.3 C 94 H 16 146/84 H 92 PG Care Time/CCT Total # of Minutes Spent Total Time Spent with Patient: Total time spent is greater than 50% in coordination of care (as documented) at patient's floor/unit and/or counseling patient: Coding Level of Care Code None Diagnoses S/P colon resection Z90.49
[2020-06-13] MEDS: AMLODIPINE BESYLATE 5 MG TAB PO SCH (08:34)
[2020-06-13] MEDS: IOVERSOL 100ml IV ONE ×2 (10:43→11:14)
--- NOTE | 2020-06-13 11:32 | CT Scan Report ---
CT abd pelvis oral and IV con CLINICAL HISTORY: follow up surgery for perforated diverticulitis COMPARISON STUDY: 06/06/2020 TECHNIQUE: A dose lowering technique was utilized adhering to the principles of ALARA. CT DOSE: 1318.92 mGy.cm FINDINGS: Lower chest: There are small bilateral pleural effusions left larger than right. Basilar opacities li blanco representing compressive atelectasis. There is an equivocal hypodensity within the left pulmonar y artery. Pulmonary embolism cannot be excluded. CT angiography the chest obtained in follow-up as de emed clinically appropriate Liver: There is hepatic steatosis. No focal hepatic masses are visualized. Gallbladder: Unremarkable. Spleen: The spleen is mildly enlarged measuring 13.5 cm Pancreas: Unremarkable. Adrenal glands: Unremarkable. Kidneys: There is a 3 cm left renal cyst. No solid renal masses are visualized. Bowel: The small bowel and colon are normal in course and caliber. There is an indwelling nasogastric tube. There is evidence for renal surgery for perforated diverticulitis. There is a surgical drain c olon within the pelvis. There is a left lower quadrant diverting colostomy. There is a suture line at the level of the sigmoid resection site. There are multiple distal diverticula within the unused sig moid colon. There are dilated small bowel loops with air-fluid levels. The distal small bowel is of n ormal caliber. The findings could be secondary to postoperative ileus or small bowel obstruction. The re are thick-walled small bowel loops possibly secondary to prior peritonitis. There is a 10 x 9 x 5 cm left lower quadrant anterolateral fluid collection. There are no air bubbles within this collectio n. The sterility of this collection is unknown. There is no evidence of acute appendicitis. Peritoneum: There is minimal free pelvic fluid. There is a walled off fluid collection within the lef t lower quadrant as described above. There are a few intraperitoneal air bubbles deep to the midline incision, possibly related to recent surgery. Vasculature: The abdominal aorta is normal in course and caliber. Adenopathy: None. Pelvic viscera: There is mild prostatomegaly Skeletal structures: No destructive osseous lesions are seen. There is an open anterior abdominal wal l wound. IMPRESSION: 1. Interval surgery for perforated diverticulitis with creation of a left lower quadrant diverting os analia 2. Extensive residual diverticulosis within the and used to sigmoid colon 3. 10 x 9 x 5 cm left lower quadrant fluid collection. The sterility of this collection is unknown. 4. Dilated small bowel loops with multiple air-fluid levels. In addition there are several thick-wall ed small bowel loops. The distal small bowel is of normal caliber. There is a mid abdominal transitio n zone without a definable mass. The findings could represent a small bowel obstruction or postoperat sage ileus. Critical follow-up advocated. 5. [Midline abdominal wound 6. Small gas bubbles within the abdominal wall and deep to the rectus sheath, likely postsurgical 7. Bilateral pleural effusions. 8. Filling defect versus artifact within the left lower lobe pulmonary artery. CT angiography of the chest CT obtained to confirm or refute the presence of pulmonary embolism as deemed clinically approp riate. ACT 112: Negative or not required by law. Electronically signed by: Finn Galaviz M.D. 06/13/2020 11:30 AM
[2020-06-13] MEDS: PANTOprazole 40 MG in SYRINGE 0 ML IV SCH (11:57)
--- NOTE | 2020-06-13 12:22 | Surgery Progress Note ---
Date of Service June 13, 2020 Assessment & Plan (1) S/P colon resection: Discussed with the patient the CT scan findings of the abdomen and chest and also with the radiologist who feel that this fluid collection or abscess could be drained by CT-guided and we will schedule today and they felt they could do it today Also discussed with the patient the filling defect in the pulmonary artery that needs further evaluation by CT Holley of the chest to rule out PE Present on Admission?: Yes Admission and Anticipated Discharge Date Admission Date: June 06, 2020 Subjective Feels better with the NG tube in although a little discomfort with it Results & Data ([facility] [place]) Vital Signs (Past 12 Hours) Vital Signs Temp Pulse Resp BP Pulse Ox 06/13/20 06:46 37.3 C 83 16 154/[address] scan of the abdomen was reviewed 10 cm fluid collection left side that the abdominal wall consistent with either localized fluid or abscess small bowel area small transition zone appreciated and CT of the upper abdomen visualize the left pulmonary artery possibly a filling defect cannot rule out a pulmonary embolus PG Care Time/CCT Total # of Minutes Spent Total Time Spent with Patient: Total time spent is greater than 50% in coordination of care (as documented) at patient's floor/unit and/or counseling patient: Coding Level of Care Code None Diagnoses S/P colon resection Z90.49
--- NOTE | 2020-06-13 14:22 | Hospitalist Progress Note ---
Date of Service June 13, 2020 Assessment & Plan (1) Perforated diverticulum: S/p Exploratory Laparotomy, Abdominal wash out, Sigmoid Colon Resection and Priya procedure with Dr. Corea on 06/06. - Post-op care per primary service. - On 06/10, had large amount of blood at [place] site and in ostomy bag. Seen with Dr. Diamond who noted likely a liquifying hematoma that was leaking into the colostomy bag. Dr. Diamond evacuated as much as was able and recommended TID dressing changes. Resolved by 06/11. Hgb dropped slightly to 9.5, but was then stable. - CT a/p 06/13 showed large fluid collection; concern for abscess. Plan for drainage by radiology today. - Continue Zosyn Also note, CT a/p showed possible artifact vs. PE. CTA chest pending. (2) Hypertension: Patient has longstanding history of hypertension. BP as low as 85/60 in setting of perforated colon. BP is 155/90 today. - Held amlodipine on 06/11 for bleeding a lower BP; restarted again 06/13. - Holding home chlorthalidone and lisinopril. Will restart as needed. (3) Hyperlipidemia: - Will hold statin for the moment. Restart likely on discharge or as bowel function improves. (4) Anemia due to blood loss: Due to surgery, expected. - Hemoglobin was stable ~11 until 06/10 when it dropped to 9.5 at the time of surgical site bleeding. Stable on 06/11. - Monitor occasionally. (5) DVT prophylaxis: Held heparin per surgery on 06/10 for bleeding at the surgical site. - Restart at primary team's discretion. Discussed today. Likely after drainage today. Admission and Anticipated Discharge Date Admission Date: June 06, 2020 Subjective Feeling fairly well today after NG tube insertion and decompression of stomach. Reports no fevers/chills, chest pain, shortness of breath, nausea, or vomiting. Physical Exam Constitutional: WD/WN, vitals as above Eyes: EOM intact bilaterally; no conjunctival abnormality ENMT: external ear and nose normal, oropharynx normal Nose: + foreign body in naris (NG tube...) Neck: trachea midline, no thyromegaly normal visual inspection Respiratory: normal respiratory effort, lungs clear to auscultation no respiratory distress Cardiovascular: RRR, no murmur, no edema Gastrointestinal (Abdomen): Inspection/Auscultation: + abdominal surgical incision (No ostomy output. Clean bandages.), + abdominal surgical drain present (Serous fluid) and + hypoactive bowel sounds; abdomen not distended Musculoskeletal: no cyanosis or clubbing, extremities motor strength 5/5 Skin: no rashes, warm and dry Neurologic: moves all extremities and awake Psychiatric: Orientation: alert, oriented to person and cooperative Results & Data Results & Data ([facility]) Vital Signs (Past 12 Hours) Vital Signs Temp Pulse Resp BP Pulse Ox 06/13/20 06:46 37.3 C 83 16 154/85 H 91 PG Care Time/CCT Total # of Minutes Spent Total Time Spent with Patient: Total time spent is greater than 50% in coordination of care (as documented) at patient's floor/unit and/or counseling patient: Coding Level of Care Code 85342 Subseq Hosp Care Lvl 3 Diagnoses Perforated diverticulum K57.80 Hypertension I10 Hyperlipidemia E78.5 Anemia due to blood loss D50.0 DVT prophylaxis Z29.9
[2020-06-13] MEDS ORDERED: OPTIRAY 320 125ml IV ONE (14:50)
--- NOTE | 2020-06-13 15:12 | CT Scan Report ---
CHEST CTA for PULMONARY ARTERIES CT DOSE: 511.15 mGycm HISTORY: Shortness of breath. TECHNIQUE: Multiaxial CT images of the chest were performed following the intravenous administration of contrast to evaluate the pulmonary arteries. Maximal intensity projection images were also obtaine d. A dose lowering technique was utilized adhering to the principles of ALARA. COMPARISON STUDY: Chest CTA 06/06/2020. FINDINGS: Normal caliber thoracic aorta with no evidence for dissection. Multiple bilateral pulmonary emboli involving the majority of the left lobar and segmental pulmonary arteries. There is also embo li seen within the right lower lobe pulmonary arteries. No significant right-sided heart strain. Hepa tic steatosis. The spleen is unremarkable. Nasogastric tube terminates in the body the stomach. Small left and trace right pleural effusions. No mediastinal or hilar lymphadenopathy. No suspicious lytic or blastic osseous lesions. No pneumothorax. The central airways are patent. Consolidation within th e bilateral lobes posteriorly favor compressive atelectasis from the pleural effusions. Otherwise, faizan ngs are clear. IMPRESSION: 1. Extensive bilateral pulmonary emboli. No evidence for right-sided heart strain at this time. 2. Small left and trace right pleural effusions. 3. Hepatic steatosis. 4. Nasogastric tube terminates in the body of the stomach. 5. These findings were called/faxed to the referring physician following dictation. ACT 112: Negative or not required by law. Electronically signed by: Jose Manuel Chauhan M.D. 06/13/2020 3:10 PM
[2020-06-13] MEDS ORDERED: Heparin IV Standard *NO* Bolus IV SCH (15:45)
--- NOTE | 2020-06-13 15:52 | CT Scan Report ---
CT GUIDED ASPIRATION AND DRAIN PLACEMENT WITHIN LEFT LOWER QUADRANT ABDOMINAL FLUID COLLECTION CLINICAL HISTORY: abscess drainage- abdominal fluid collection COMPARISON STUDY: CT of the abdomen and pelvis performed earlier today. PROCEDURE: The procedure, risks and benefits were discussed with the patient and informed written con sent was obtained. The procedure was performed by Dr. White following a timeout. Axial unenhanced images through the mid to lower abdomen again demonstrated the left lower quadrant intra-abdominal f luid collection which was targeted for drainage. Skin overlying the collection was prepped and draped in sterile fashion and local anesthesia was achieved with 1% lidocaine. Under intermittent CT guidan ce and utilizing Seldinger technique, a 10 [place]ian locking pigtail catheter was inserted into the flui d collection. There was immediate return of brownish-red fluid. A total of 60 cc of fluid was aspirat ed. Fluid was sent to the laboratory for Gram stain, culture and sensitivity. The pigtail was secured in place. The patient tolerated the procedure well and no immediate complications were evident. IMPRESSION: Successful CT-guided placement of 10 [place]ian locking pigtail catheter within left lower qu adrant intra-abdominal fluid collection. 60 cc of brownish-red fluid aspirated and sent to the [facility]faela thomas for Gram stain, culture and sensitivity. ACT 112: Negative or not required by law. Electronically signed by: Jung White M.D. 06/13/2020 3:51 PM
[2020-06-13] MEDS ORDERED: TPN IV SCH (16:00)
[2020-06-13] MEDS ORDERED: CENTRAL PN IV SCH (16:00)
[2020-06-13] MEDS: HEPARIN SODIUM/DEXTROSE 25,000 UNITS/500 ML BAG IV SCH (16:46)
[2020-06-13 17:22] LABS: Basophils # (auto) 0.02 K/uL (0-0.2); Basophils % (auto) 0.2 %; Eosinophils # (auto) 0.24 K/uL (0-0.5); Hematocrit (blood only) 25.8 % (42-52); Hemoglobin 8.4 g/dL (14.0-18.0); Immature Granulocytes # (auto) 0.27 K/uL (0.00-0.02); Immature Granulocytes % (auto) 2.3 %; Lymphocytes # (auto) 1.51 K/uL (1.2-3.4); Lymphocytes % (auto) 12.6 %; Mean Corpuscular Hemoglobin 30.9 pg (25-34); Mean Corpuscular Hgb Conc 32.6 g/dL (32-36); Mean Corpuscular Volume 94.9 fL (80-100); Mean Platelet Volume 8.6 fL (7.4-10.4); Monocytes # (auto) 0.44 K/uL (0.11-0.59); Monocytes % (auto) 3.7 %; Neutrophils # (auto) 9.48 K/uL (1.4-6.5); Neutrophils % (auto) 79.2 %; Platelet Count 330 K/uL (130-400); RDW Coefficient of Variation 14.1 % (11.5-14.5); RDW Standard Deviation 48.3 fL (36.4-46.3); Red Blood Count 2.72 M/uL (4.7-6.1); White Blood Count 11.96 K/uL (4.8-10.8)
[2020-06-13 18:01] LABS: INR 1.1 (0.9-1.1); Partial Thromboplastin Ratio 0.9; Partial Thromboplastin Time 25.6 Seconds (21.0-31.0); Prothrombin Time 11.4 Seconds (9.0-12.0)
[2020-06-13 23:20] LABS: Partial Thromboplastin Ratio 1.4; Partial Thromboplastin Time 38.7 Seconds (21.0-31.0)
[2020-06-13] MEDS ORDERED: HEPARIN IV BOLUS 7,000 UNITS in SYRINGE 0 ML IV ONE (23:25)
[2020-06-14] MEDS: HEPARIN SODIUM/DEXTROSE 25,000 UNITS/500 ML BAG IV SCH ×2 (05:50→18:47)
[2020-06-14] MEDS: PIPERACILLIN/TAZOBACTAM 4.5 GM in DEXTROSE 5% 100 ML IV SCH ×3 (05:50→21:26)
[2020-06-14] MEDS ORDERED: SODIUM CHLORIDE 0.9% 1000ML 1,000 ML IV ONE (06:48)
--- NOTE | 2020-06-14 06:48 | Surgery Progress Note ---
Date of Service June 14, 2020 Assessment & Plan (1) S/P colon resection: At this time we will replace the IV fluids with some normal saline hyper L is going to total 100 cc an hour Patient is on full heparinization for his PE although clinically has no symptoms or any shortness of breath only thing is this slight elevation his heart rate could be multifactorial We will leave the NG tube in for today depending on much drainage and not much output from the ileostomy may be able to be removed tomorrow All questions were answered Present on Admission?: Yes Admission and Anticipated Discharge Date Admission Date: June 06, 2020 Subjective Patient feels better than yesterday less abdominal distention not short of breath Physical Exam Physical Exam: Is alert coherent fairly comfortable has some complain about the NG tube being in place Oral mucosa bit dry The abdomen is softer than yesterday there is no localized tenderness the ileostomy has increased output which is liquid fecal in nature No calf tenderness Results & Data ([facility]) Vital Signs (Past 12 Hours) Vital Signs Temp Pulse Resp BP Pulse Ox 06/13/20 23:52 37.1 C 96 H 18 158/96 H 93 Results from the aspirated fluid in the left lower quadrant 60 cc with a pigtail catheter left in has not back as far as the cultures but the drainage from the catheter is serous nonpurulent in nature The patient had considerable NG output yesterday and over night at about 1800 cc his urine output appears adequate PG Care Time/CCT Total # of Minutes Spent Total Time Spent with Patient: Total time spent is greater than 50% in coordination of care (as documented) at patient's floor/unit and/or counseling patient: Coding Level of Care Code None Diagnoses S/P colon resection Z90.49
[2020-06-14 07:24] LABS: Basophils # (auto) 0.02 K/uL (0-0.2); Basophils % (auto) 0.1 %; Hemoglobin 8.9 g/dL (14.0-18.0); Immature Granulocytes # (auto) 0.26 K/uL (0.00-0.02); Immature Granulocytes % (auto) 1.7 %; Lymphocytes # (auto) 1.66 K/uL (1.2-3.4); Mean Corpuscular Hemoglobin 29.1 pg (25-34); Mean Corpuscular Volume 88.2 fL (80-100); Mean Platelet Volume 8.5 fL (7.4-10.4); Monocytes # (auto) 0.92 K/uL (0.11-0.59); Monocytes % (auto) 6.1 %; Neutrophils # (auto) 11.93 K/uL (1.4-6.5); Neutrophils % (auto) 79.1 %; Platelet Count 351 K/uL (130-400); RDW Coefficient of Variation 13.7 % (11.5-14.5); RDW Standard Deviation 43.8 fL (36.4-46.3); Red Blood Count 3.06 M/uL (4.7-6.1); White Blood Count 15.09 K/uL (4.8-10.8)
[2020-06-14 07:29] LABS: Partial Thromboplastin Ratio 2.2
[2020-06-14 07:32] LABS: Partial Thromboplastin Time 61.8 Seconds (21.0-31.0)
[2020-06-14 07:39] LABS: Est GFR (African American) 88.8; Est GFR (Non-African American) 76.7; Potassium 3.6 mmol/L (3.5-5.1)
[2020-06-14 07:40] LABS: BUN Creatinine Ratio 14.8 (10-20); Calcium 8.2 mg/dl (8.5-10.1); Creatinine Clr Calc Pharmacy 94.1 ml/min; Magnesium 2.2 mg/dl (1.8-2.4); Phosphorus 3.3 mg/dl (2.5-4.9)
[2020-06-14] MEDS: AMLODIPINE BESYLATE 5 MG TAB PO SCH ×2 (08:12→09:24)
--- NOTE | 2020-06-14 09:10 | Pharmacy Report ---
PHA: Parenteral Nutrition Con - Date of Service June 14, 2020 - Scope Pharmacy was consulted on 06/12/20 to manage parenteral nutrition orders for this patient. - Subjective The patient is currently on day #3 of central parenteral nutrition for bowel perforation, s/p colon resection, prolonged NPO status. - Objective Height: 5 ft 11 in Weight: 105.4 kg Diet: NPO Intake & Output (24hrs):: Intake & Output 06/12/20 06/13/20 06/14/20 06/15/20 06:59 06:59 06:59 06:59 Intake Total 3216.666 / 3216.666 2536.667 / 2536.667 3233.083 / 3233.083 98.667 / 98.667 Output Total 1460 / 1460 2837 / 2837 6135 / 6135 425 / 425 Balance 1756.666 / 1756.666 -300.333 / -300.333 -2901.917 / -2901.917 -326.333 / -326.333 Weight 115.4 kg 105.4 kg Laboratory Data (Last 24 Hr):: 06/14/20 06:52 Sodium 139 Potassium 3.6 Chloride 107 Carbon Dioxide 26 BUN 16 Creatinine 1.07 Glucose 121 H Calcium 8.2 L Phosphorus 3.3 Magnesium 2.2 Nutrition Assessment:: Please refer to the Notes section of the 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 - Assessment Nestor is a 59 yo male s/p colon resection * Today is day # 3 of parenteral nutrition * PICC line was placed on 06/13/20 * Will advance dextrose to 300 g/day * Electrolytes are stable. - Plan For day 3 of PN administration, the following will be ordered: Macronutrients Amino acids 105 grams/day Dextrose 300 grams/day Lipids 50 grams/day Micronutrients Combined electrolytes 20 mL - contains 35 mEq Na, 20 meq K, 4.5 mEq Ca, 5 mEq Mg, 35 mEq Cl, 29.5 mEq acetate per 20 mL Sodium chloride 70 mEq Sodium acetate 70 mEq Potassium phosphate 27 mMol (increase) Potassium chloride 50 mEq (increase) Multivitamins 10 mL Trace Elements 1 mL Additional additives: folic acid 1 mg and thiamine 100 mg Total volume 2400 mL to be infused over 24 hrs will provide 1940 kcal/day Labs, as indicated, will be ordered per protocol Pharmacy will continue to follow and adjust parenteral nutrition orders on a daily basis. Thank you for allowing us to participate in the care of this patient.
[2020-06-14] MEDS: PANTOprazole 40 MG in SYRINGE 0 ML IV SCH (11:11)
--- NOTE | 2020-06-14 11:43 | Hospitalist Progress Note ---
Date of Service June 14, 2020 Assessment & Plan (1) Perforated diverticulum: S/p Exploratory Laparotomy, Abdominal wash out, Sigmoid Colon Resection and Priya procedure with Dr. Corea on 06/06. - Post-op care per primary service. - On 06/10, had large amount of blood at [place] site and in ostomy bag. Seen with Dr. Diamond who noted likely a liquifying hematoma that was leaking into the colostomy bag. Dr. Diamond evacuated as much as was able and recommended TID dressing changes. Resolved by 06/11. Hgb dropped slightly to 9.5, but was then stable. - CT a/p 06/13 showed large fluid collection; concern for abscess. Drain placed by radiology June 13. - Continue Zosyn (2) Hypertension: Patient has longstanding history of hypertension. BP as low as 85/60 in setting of perforated colon. BP is satisfactory today. - Held amlodipine on 06/11 for bleeding a lower BP; restarted again 06/13. - Holding home chlorthalidone and lisinopril. Will restart as needed. (3) Hyperlipidemia: - Will hold statin for the moment. Restart likely on discharge or as bowel function improves. (4) Anemia due to blood loss: Due to surgery, expected. - Hemoglobin was stable ~11 until 06/10 when it dropped to 9.5 at the time of surgical site bleeding. Stable 06/14 today, 8.9. - Monitor daily. (5) DVT prophylaxis: Currently on heparin drip (6) Pulmonary embolism: Currently on heparin drip. Asymptomatic at rest. Oxygen saturation on room air satisfactory. Present on Admission?: No Admission and Anticipated Discharge Date Admission Date: June 06, 2020 Subjective for theAlert and oriented. No complaints. Vital signs are stable. NG tube remains in place. Postoperative day #8. Ostomy is functional. Hemoglobin 8.9. He is on a heparin drip PE diagnosis obtained June 13. Abdominal drain was also placed on June 13. He remains n.p.o. with TPN and IV fluids. Review of Systems Review of Systems: Constitutional-no fever or chills ENT-no blurred vision, no double vision, no epistaxis, no sore throat Respiratory-no cough, no wheezing, no shortness of breath Cardiac-no palpitations, no chest pain, no syncope GI-no nausea, vomiting, diarrhea, melena, hematochezia. -no urinary retention, no urinary incontinence, no dysuria, no hematuria Musculoskeletal-no joint pain, no muscle tenderness Skin-no bruising, no rashes, no pruritus Neuro-no isolated weakness, no paresthesia, no weakness Psych-no depression, no anxiety Physical Exam 2 Physical Exam: General-alert and oriented x3, no fevers, no chills HEENT-head atraumatic and normocephalic, TMs intact bilaterally, pupils equal and reactive to light, extraocular muscles intact Neck-no lymphadenopathy or thyromegaly, trachea midline Chest-clear to auscultation percussion. No rales wheezing or rhonchi Cardiac-regular rate and rhythm, normal S1 and S2, no murmurs Abdomen-distended. Bowel sounds are hypoactive but present. Functioning left lower quadrant colostomy. NG tube in place. Extremities-no cyanosis, clubbing, or edema Neuro-cranial nerves II through XII intact, motor and sensory function within normal limits, strength symmetrical 5/5, no focal deficits Psych-normal affect, normal mood Results & Data Results & Data ([facility]) Vital Signs (Past 12 Hours) Vital Signs Temp Pulse Pulse Resp BP Pulse Ox 06/14/20 07:35 36.9 C 86 18 150/95 H 94 06/13/20 23:52 37.1 C 96 H 18 158/96 H 93 Laboratory Results 06/14/20 06:52 06/14/20 06:52 PG Care Time/CCT Total # of Minutes Spent Total Time Spent with Patient: Total time spent is greater than 50% in coordination of care (as documented) at patient's floor/unit and/or counseling patient: Coding Level of Care Code 55001 Subseq Hosp Care Lvl 3 Diagnoses Perforated diverticulum K57.80 Hypertension I10 Hyperlipidemia E78.5 Anemia due to blood loss D50.0 DVT prophylaxis Z29.9 Pulmonary embolism I26.99
[2020-06-14] MEDS ORDERED: ACETAMINOPHEN 1,000 MG/100 ML VIAL IV PRN (14:28)
[2020-06-14] MEDS ORDERED: TPN IV SCH (16:00)
[2020-06-14] MEDS ORDERED: CENTRAL PN IV SCH (16:00)
[2020-06-14] MEDS: HydrALAZINE HCL 20 MG/ML VIAL IV PRN (17:01)
[2020-06-15] MEDS: HydrALAZINE HCL 20 MG/ML VIAL IV PRN (03:06)
[2020-06-15] MEDS: PIPERACILLIN/TAZOBACTAM 4.5 GM in DEXTROSE 5% 100 ML IV SCH ×3 (05:19→21:21)
[2020-06-15] MEDS: HEPARIN SODIUM/DEXTROSE 25,000 UNITS/500 ML BAG IV SCH ×2 (07:04→19:51)
[2020-06-15 07:28] LABS: Basophils # (auto) 0.02 K/uL (0-0.2); Basophils % (auto) 0.1 %; Eosinophils # (auto) 0.29 K/uL (0-0.5); Hematocrit (blood only) 28.3 % (42-52); Hemoglobin 9.1 g/dL (14.0-18.0); Immature Granulocytes # (auto) 0.23 K/uL (0.00-0.02); Immature Granulocytes % (auto) 1.6 %; Lymphocytes # (auto) 1.57 K/uL (1.2-3.4); Lymphocytes % (auto) 10.7 %; Mean Corpuscular Hemoglobin 28.7 pg (25-34); Mean Corpuscular Hgb Conc 32.2 g/dL (32-36); Mean Corpuscular Volume 89.3 fL (80-100); Mean Platelet Volume 8.5 fL (7.4-10.4); Monocytes # (auto) 0.73 K/uL (0.11-0.59); Neutrophils # (auto) 11.79 K/uL (1.4-6.5); Neutrophils % (auto) 80.6 %; Nucleated RBC # (auto) 0.03 K/uL (0-0); Nucleated RBC % (auto) 0.2 %; Platelet Count 336 K/uL (130-400); RDW Coefficient of Variation 13.7 % (11.5-14.5); RDW Standard Deviation 44.9 fL (36.4-46.3); Red Blood Count 3.17 M/uL (4.7-6.1); White Blood Count 14.63 K/uL (4.8-10.8)
--- NOTE | 2020-06-15 07:40 | Surgery Progress Note ---
Date of Service June 15, 2020 Assessment & Plan (1) S/P colon resection: It seems like that Nestor is turned a corner at this time we will remove the NG tube start him on clear liquids continue with hyperalimentation until we are sure that his oral intake is sufficient also increase activity We will leave it up to the medical service to convert to oral anticoagulant At this time I would continue with antibiotic therapy for another day or so since his GI function appears to have returned Admission and Anticipated Discharge Date Admission Date: June 06, 2020 Subjective Nestor is doing well he feels much better minimal abdominal discomfort Physical Exam Physical Exam: Is alert coherent resting comfortably in bed without major complaints Good output through the ileostomy liquid no fecal content The abdomen is soft no tenderness Nj drainage is serous The abdominal incision is free of any cellulitis and the packing is intact and will remove later today No subjective or objective calf pain No pedal edema Results & Data ([facility]) Vital Signs (Past 12 Hours) Vital Signs Temp Pulse Resp BP Pulse Ox 06/15/20 07:01 36.4 C L 94 H 18 151/92 H 95 06/15/20 02:50 37.3 C 87 16 166/88 H 95 06/14/20 23:19 37.1 C 90 16 160/94 H 94 so far no evidence of infection in the fluid that was aspirated in his left lower quadrant The white count is slowly trending down BUN and creatinine are pending IR no was noted PG Care Time/CCT Total # of Minutes Spent Total Time Spent with Patient: Total time spent is greater than 50% in coordination of care (as documented) at patient's floor/unit and/or counseling patient: Coding Level of Care Code None Diagnoses S/P colon resection Z90.49
[2020-06-15 07:53] LABS: BUN Creatinine Ratio 12.7 (10-20); Calcium 8.5 mg/dl (8.5-10.1); Creatinine Clr Calc Pharmacy 96.8 ml/min; Est GFR (African American) 91.9; Est GFR (Non-African American) 79.3; Magnesium 2.4 mg/dl (1.8-2.4); Phosphorus 2.9 mg/dl (2.5-4.9); Potassium 3.9 mmol/L (3.5-5.1)
[2020-06-15 07:56] LABS: Partial Thromboplastin Ratio 1.8
[2020-06-15 08:04] LABS: Partial Thromboplastin Time 50.4 Seconds (21.0-31.0)
[2020-06-15] MEDS: AMLODIPINE BESYLATE 5 MG TAB PO SCH (08:06)
[2020-06-15] MEDS ORDERED: OXYCODONE/ACETAMINOPHEN 5mg/325mg TAB PO PRN (08:30)
--- NOTE | 2020-06-15 09:26 | Pharmacy Report ---
PHA: Parenteral Nutrition Con - Date of Service June 15, 2020 - Scope Pharmacy was consulted on 06/12/20 to manage parenteral nutrition orders for this patient. - Subjective The patient is currently on day #4 of central parenteral nutrition for bowel perforation, s/p colon resection, prolonged NPO status. - Objective Height: 5 ft 11 in Weight: 105.4 kg Diet: Clear Liquid Intake & Output (24hrs):: Intake & Output 06/13/20 06/14/20 06/15/20 06/16/20 06:59 06:59 06:59 06:59 Intake Total 2536.667 / 2536.667 3233.083 / 3233.083 4386.000 / 4386.000 378.000 / 378.000 Output Total 2837 / 2837 6135 / 6135 6735 / 6735 700 / 700 Balance -300.333 / -300.333 -2901.917 / -2901.917 -2349.000 / -2349.000 -322.000 / -322.000 Weight 115.4 kg 105.4 kg 105.4 kg Laboratory Data (Last 24 Hr):: 06/15/20 07:07 Sodium 140 Potassium 3.9 Chloride 111 H Carbon Dioxide 21 BUN 13 Creatinine 1.04 Glucose 123 H Calcium 8.5 Phosphorus 2.9 Magnesium 2.4 Triglycerides 160 H Nutrition Assessment:: Please refer to the Notes section of the 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 - Assessment Nestor is a 59 yo male s/p colon resection. Parenteral nutrition was initiated on 06/12. * PICC line was placed on 06/13/20 * Electrolytes remain stable * Patient is being advanced to clear liquids today, therefore I will not further titrate macronutrients. * Will monitor tolerability of diet moving forward and taper off TPN as appropriate - Plan For day 4 of PN administration, the following will be ordered: Macronutrients Amino acids 105 grams/day Dextrose 300 grams/day Lipids 50 grams/day Micronutrients Sodium phosphate 9 MMol Sodium chloride 40 mEq Sodium acetate 100 mEq Potassium phosphate 21 mMol Potassium acetate 70 mEq Calcium gluconate 4.65 mEq Multivitamins 10 mL Trace Elements 1 mL Additional additives: folic acid 1 mg and thiamine 100 mg Total volume 2400 mL to be infused over 24 hrs will provide 1940 kcal/day Labs, as indicated, will be ordered per protocol Pharmacy will continue to follow and adjust parenteral nutrition orders on a daily basis. Thank you for allowing us to participate in the care of this patient.
[2020-06-15] MEDS: PANTOprazole 40 MG in SYRINGE 0 ML IV SCH (11:16)
--- NOTE | 2020-06-15 12:03 | Hospitalist Progress Note ---
Date of Service June 15, 2020 Assessment & Plan (1) Perforated diverticulum: S/p Exploratory Laparotomy, Abdominal wash out, Sigmoid Colon Resection and Priya procedure with Dr. Corea on 06/06. - Post-op care per primary service. - On 06/10, had large amount of blood at [place] site and in ostomy bag. Seen with Dr. Diamond who noted likely a liquifying hematoma that was leaking into the colostomy bag. Dr. Diamond evacuated as much as was able and recommended TID dressing changes. Resolved by 06/11. Hgb dropped slightly to 9.5, but was then stable. - CT a/p 06/13 showed large fluid collection; concern for abscess. Drain placed by radiology June 13. - Continue Zosyn (2) Hypertension: Patient has longstanding history of hypertension. - Held amlodipine on 06/11 for bleeding a lower BP; restarted again 06/13. - Holding home chlorthalidone and lisinopril. (3) Hyperlipidemia: - Will hold statin for the moment. Restart likely on discharge (4) Anemia due to blood loss: Due to surgery, expected. - Hemoglobin was stable ~11 until 06/10 when it dropped to 9.5 at the time of surgical site bleeding. Now stable. - Monitor daily. (5) DVT prophylaxis: Currently on heparin drip (6) Pulmonary embolism: Currently on heparin drip. Asymptomatic at rest. Oxygen saturation on room air satisfactory. Will transition to Eliquis or Xarelto within the next day or 2 Admission and Anticipated Discharge Date Admission Date: June 06, 2020 Subjective Alert and oriented. No complaints. No shortness of breath. NG tube has been removed and he is now on a clear liquid diet. He remains on a heparin drip for the bilateral PEs which were diagnosed June 13. Surgery entry noted Review of Systems Review of Systems: Constitutional-no fever or chills ENT-no blurred vision, no double vision, no epistaxis, no sore throat Respiratory-no cough, no wheezing, no shortness of breath Cardiac-no palpitations, no chest pain, no syncope GI-no nausea, vomiting, diarrhea, melena, hematochezia -no urinary retention, no urinary incontinence, no dysuria, no hematuria Musculoskeletal-no joint pain, no muscle tenderness Skin-no bruising, no rashes, no pruritus Neuro-no isolated weakness, no paresthesia, no weakness Psych-no depression, no anxiety Physical Exam Physical Exam: General-alert and oriented x3, no fevers, no chills HEENT-head atraumatic and normocephalic, TMs intact bilaterally, pupils equal and reactive to light, extraocular muscles intact Neck-no lymphadenopathy or thyromegaly, trachea midline Chest-clear to auscultation percussion. No rales wheezing or rhonchi Cardiac-regular rate and rhythm, normal S1 and S2, no murmurs Abdomen-normal bowel sounds, no hepatosplenomegaly. Functioning colostomy. Bowel sounds active Extremities-no cyanosis, clubbing, or edema Neuro-cranial nerves II through XII intact, motor and sensory function within normal limits, strength symmetrical 5/5, no focal deficits Psych-normal affect, normal mood Results & Data Results & Data ([facility]) Vital Signs (Past 12 Hours) Vital Signs Temp Pulse Resp BP Pulse Ox 06/15/20 07:01 36.4 C L 94 H 18 151/92 H 95 06/15/20 02:50 37.3 C 87 16 166/88 H 95 Laboratory Results 06/15/20 07:07 06/15/20 07:07 PG Care Time/CCT Total # of Minutes Spent Total Time Spent with Patient: Total time spent is greater than 50% in coordination of care (as documented) at patient's floor/unit and/or counseling patient: Coding Level of Care Code 34996 Subseq Hosp Care Lvl 3 Diagnoses Perforated diverticulum K57.80 Hypertension I10 Hyperlipidemia E78.5 Anemia due to blood loss D50.0 DVT prophylaxis Z29.9 Pulmonary embolism I26.99
[2020-06-15] MEDS ORDERED: TPN IV SCH (16:00)
[2020-06-15] MEDS ORDERED: CENTRAL PN IV SCH (16:00)
[2020-06-16] MEDS: PIPERACILLIN/TAZOBACTAM 4.5 GM in DEXTROSE 5% 100 ML IV SCH ×3 (05:15→21:12)
--- NOTE | 2020-06-16 07:28 | Surgery Progress Note ---
Date of Service June 16, 2020 Assessment & Plan (1) Perforated diverticulum: -pt. is s/p ex lap with Quach procedure -encourage ambulation -will advance diet to full liquids today Admission and Anticipated Discharge Date Admission Date: June 06, 2020 Supervising Physician Co-Signing Physician Notes Patient seen and examined, agree with above. Tolerated clear liquids, asking for something more substantial. Good ostomy output. Cultures from IR placed drain with pinpoint growth, re-incubating as of yesterday. We will keep the dr johansen in until the final cultures return, advance him to a full liquid diet, and likely low fiber tomorrow. Subjective Pt. denies significant abdominal pain. No SOB or CP. He has been ambulating in hallway. He notes no N/V since liquids started yesterday. Physical Exam Constitutional: well developed and well nourished; no acute distress Neck: trachea midline Respiratory: normal respiratory effort; no respiratory distress and no labored breathing Cardiovascular: Rate/Rhythm: regular rate and regular rhythm Gastrointestinal (Abdomen): Inspection/Auscultation: + hypoactive bowel sounds; abdomen not distended Incision intact with retention sutures, ostomy appears viable with brown stool noted in collection bag Results & Data ([facility]) Vital Signs (Past 12 Hours) Vital Signs Temp Pulse Resp BP Pulse Ox 06/15/20 23:19 37.4 C 91 H 16 157/97 H 96 PG Care Time/CCT Total # of Minutes Spent Total Time Spent with Patient: Total time spent is greater than 50% in coordination of care (as documented) at patient's floor/unit and/or counseling patient: Coding Level of Care Code None Diagnoses Perforated diverticulum K57.80
[2020-06-16 08:24] LABS: Basophils # (auto) 0.02 K/uL (0-0.2); Basophils % (auto) 0.2 %; Eosinophils # (auto) 0.32 K/uL (0-0.5); Eosinophils % (auto) 2.7 %; Hematocrit (blood only) 26.9 % (42-52); Hemoglobin 8.7 g/dL (14.0-18.0); Immature Granulocytes # (auto) 0.21 K/uL (0.00-0.02); Immature Granulocytes % (auto) 1.8 %; Lymphocytes # (auto) 1.68 K/uL (1.2-3.4); Lymphocytes % (auto) 14.2 %; Mean Corpuscular Hemoglobin 28.6 pg (25-34); Mean Corpuscular Hgb Conc 32.3 g/dL (32-36); Mean Corpuscular Volume 88.5 fL (80-100); Mean Platelet Volume 8.7 fL (7.4-10.4); Monocytes # (auto) 0.54 K/uL (0.11-0.59); Monocytes % (auto) 4.6 %; Neutrophils # (auto) 9.08 K/uL (1.4-6.5); Neutrophils % (auto) 76.5 %; Platelet Count 219 K/uL (130-400); RDW Coefficient of Variation 13.7 % (11.5-14.5); RDW Standard Deviation 44.2 fL (36.4-46.3); Red Blood Count 3.04 M/uL (4.7-6.1); White Blood Count 11.85 K/uL (4.8-10.8)
[2020-06-16 08:41] LABS: BUN Creatinine Ratio 13.1 (10-20); Calcium 8.1 mg/dl (8.5-10.1); Creatinine Clr Calc Pharmacy 99.4 ml/min; Est GFR (African American) 94.1; Est GFR (Non-African American) 81.2; Magnesium 2.1 mg/dl (1.8-2.4); Potassium 4.1 mmol/L (3.5-5.1)
[2020-06-16 08:43] LABS: Partial Thromboplastin Ratio 1.9
[2020-06-16 08:46] LABS: Partial Thromboplastin Time 52.4 Seconds (21.0-31.0)
[2020-06-16] MEDS: AMLODIPINE BESYLATE 5 MG TAB PO SCH (09:19)
[2020-06-16] MEDS: HEPARIN SODIUM/DEXTROSE 25,000 UNITS/500 ML BAG IV SCH ×2 (09:19→19:54)
[2020-06-16] MEDS: PANTOprazole 40 MG in SYRINGE 0 ML IV SCH (12:41)
--- NOTE | 2020-06-16 13:20 | Hospitalist Progress Note ---
Date of Service June 16, 2020 Assessment & Plan (1) Pneumoperitoneum: Patient with exploratory laparotomy on 06/06/2020 and found to have a perforated diverticulum CT scan done on 06/13/2020 shows large fluid collection with concern for abscess. Patient continues on Zosyn Drains placed by radiology Surgery following Colostomy bag now with no blood Drains with no blood Afebrile Surgery following (2) Pulmonary embolism: Most likely secondary to sedentary activity Patient with partial right knee arthroplasty approximately 2 months ago Patient then developed ruptured diverticulum requiring surgery 06/06/2020 No history of thromboembolic disease in the past No asymmetry to lower extremities Patient started on heparin drip 06/13/2020 We will discuss with surgery about transition to oral anticoagulant We will also discussed with case management regarding coverage with insurance. Continue anticoagulation Okay to ambulate as tolerated (3) Hypertension: Amlodipine was held secondary to hypotension on 06/11/2019 secondary to bleeding It was restarted on 06/13/2020 The patient's lisinopril and chlorthalidone has also been held Patient systolic blood pressures been running in the 140s 150s. BUN and creatinine are within normal limits. Will restart lisinopril today Continue to follow vitals (4) Hyperlipidemia: We will hold statin until discharged and resume at that time (5) Anemia due to blood loss: Hemoglobin is fairly stable at 8.7 g/Isreal No acute bleeding at this time We will continue to follow No transfusion unless hemoglobin drops below 7 g/Isreal (6) DVT prophylaxis: Patient continues on a heparin weight-based drip secondary to acute pulmonary e mboli May transition to oral anticoagulant tomorrow Continue to ambulate as tolerated Please refer to Dr. Connolly's addendum for further recommendations. Admission and Anticipated Discharge Date Admission Date: June 06, 2020 Subjective Attending: Dr. Connolly This is a 59-year-old male that was admitted 06/06/2020 for severe abdominal pain. In the emergency room he was found to have a pneumoperitoneum and was taken urgently to the operating room for exploratory laparotomy and was found to have a perforated diverticulum. The patient underwent surgical r evision with a Priya procedure and abdominal washout. He now has a colostomy bag and 2 drains with no evidence of bleeding. The patient had a CT scan of the abdomen pelvis on 06/13/2020 which showed hypodensity within the left pulmonary artery. A CTA of the chest was then completed and revealed extensive bilateral pulmonary emboli with no evidence for right heart strain. Patient was started on heparin drip and continues on that today. CT of the abdomen pelvis revealed some fluid collection. Patient then had drains placed by radiology. He continues to convalesce in room 377. Patient denies any fever chills. He has no shortness of breath. He does have some white sputum but no discolored sputum or malodor. He has no chest pain or tightness. He has some mild abdominal pain but generally is controlled. Ostomy bag is in place and has yellowish stool with no evidence of hemorrhage. Patient also has [address] which showed no evidence of bleeding. The patient has no other acute complaints. Review of Systems Review of Systems: All systems reviewed & are unremarkable except as noted in HPI & below Physical Exam Physical Exam: GENERAL : No acute distress EYES: No icterus, gaze conjugate. Pupils equal round reactive to light NOSE: No evidence of epistaxis MOUTH: No lesions or candidiasis NECK: Supple LUNGS: CTA B/L, no wheezes, rales or rhonchi. No adventitious breath sounds HEART: Regular, rate controlled ABDOMEN: Soft, ND, BS Present. Colostomy bag is in place and secure. There are also 2 drains that appear to be draining with no evidence of serosanguineous appearance. EXTREMITIES: No LE edema, pedal pulses intact and equal bilaterally NEURO: A&OX3 Results & Data Results & Data ([facility]) Vital Signs (Past 12 Hours) Vital Signs Temp Pulse Resp BP Pulse Ox 06/16/20 08:00 37.4 C 89 18 148/92 H 97 Laboratory Results 06/16/20 08:12 06/16/20 08:12 INR 1.1 (0.9-1.1) 06/13/20 16:53 Diagnostic Findings No diagnostic testing after 06/13/2020 PG Care Time/CCT Total # of Minutes Spent Total Time Spent with Patient: Total time spent is greater than 50% in coordination of care (as documented) at patient's floor/unit and/or counseling patient: 25 minutes Coding Level of Care Code 19184 Subseq Hosp Care Lvl 2 Diagnoses Pneumoperitoneum K66.8 Pulmonary embolism I26.99 Hypertension I10 Hyperlipidemia E78.5 Anemia due to blood loss D50.0 DVT prophylaxis Z29.9 Time Spent (min) 25
[2020-06-16] MEDS: lisinopriL 5 MG TAB PO SCH (14:23)
[2020-06-16] MEDS ORDERED: CENTRAL PN IV SCH (16:00)
[2020-06-16] MEDS ORDERED: TPN IV SCH (16:00)
[2020-06-17] MEDS: PIPERACILLIN/TAZOBACTAM 4.5 GM in DEXTROSE 5% 100 ML IV SCH ×3 (05:41→21:37)
--- NOTE | 2020-06-17 07:46 | Surgery Progress Note ---
Date of Service June 17, 2020 Assessment & Plan (1) Perforated diverticulum: -pt. is s/p ex lap with Quach procedure -encourage ambulation -continue drain as final cultures are pending -will advance diet to low fiber Admission and Anticipated Discharge Date Admission Date: June 06, 2020 Subjective Pt. reports no difficulties last night. he tolerated advancement to full liquids without worsening abdominal pain N/V. Physical Exam Constitutional: well developed and well nourished; no acute distress Neck: trachea midline Respiratory: normal respiratory effort; no respiratory distress and no labored breathing Cardiovascular: Rate/Rhythm: regular rate and regular rhythm Gastrointestinal (Abdomen): Inspection/Auscultation: + hypoactive bowel sounds; abdomen not distended ostomy appears viable with liquid stool in collection bag Results & Data ([facility]) Vital Signs (Past 12 Hours) Vital Signs Temp Pulse Resp BP Pulse Ox 06/17/20 06:46 36.9 C 90 18 144/94 H 96 06/16/20 23:45 36.9 C 96 H 20 136/85 97 PG Care Time/CCT Total # of Minutes Spent Total Time Spent with Patient: Total time spent is greater than 50% in coordination of care (as documented) at patient's floor/unit and/or counseling patient: Coding Level of Care Code None Diagnoses Perforated diverticulum K57.80
[2020-06-17] MEDS: HEPARIN SODIUM/DEXTROSE 25,000 UNITS/500 ML BAG IV SCH ×2 (08:40→21:34)
[2020-06-17] MEDS: lisinopriL 5 MG TAB PO SCH (09:07)
[2020-06-17] MEDS: AMLODIPINE BESYLATE 5 MG TAB PO SCH (09:07)
[2020-06-17 09:11] LABS: Hematocrit (blood only) 27.9 % (42-52); Hemoglobin 9.2 g/dL (14.0-18.0); Mean Corpuscular Hemoglobin 29.2 pg (25-34); Mean Corpuscular Volume 88.6 fL (80-100); Mean Platelet Volume 8.7 fL (7.4-10.4); Nucleated RBC # (auto) 0.02 K/uL (0-0); Nucleated RBC % (auto) 0.2 %; Platelet Count 172 K/uL (130-400); RDW Coefficient of Variation 13.8 % (11.5-14.5); RDW Standard Deviation 44.5 fL (36.4-46.3); Red Blood Count 3.15 M/uL (4.7-6.1); White Blood Count 11.44 K/uL (4.8-10.8)
[2020-06-17 09:27] LABS: ALC (manual) 1.51 K/uL (1.2-3.4); ANC (manual) 9.13 K/uL (1.4-6.5); Eosinophils % (manual) 2.6 %; Lymphocytes # (manual) 1.51 K/uL (1.2-3.4); Lymphocytes % (manual) 13.2 %; Metamyelocytes % (manual) 0.9 %; Monocytes % (manual) 2.6 %; Myelocytes % (manual) 0.9 %; Neutrophils # (manual) 9.13 K/uL (1.4-6.5); Neutrophils % (manual) 79.8 %; RBC Morphology Unremarkable
[2020-06-17 09:29] LABS: Partial Thromboplastin Ratio 1.8
[2020-06-17 09:35] LABS: Alanine Aminotransferase 71 U/L (12-78); Albumin Level 2.2 gm/dl (3.4-5.0); Aspartate Aminotransferase 22 U/L (15-37); BUN Creatinine Ratio 13.6 (10-20); Bilirubin Direct < 0.1 mg/dl (0-0.2); Blood Urea Nitrogen 14 mg/dl (7-18); Calcium 8.6 mg/dl (8.5-10.1); Carbon Dioxide 22 mmol/L (21-32); Chloride 110 mmol/L (98-107); Creatinine Clr Calc Pharmacy 100.2 ml/min; Est GFR (African American) 95.3; Est GFR (Non-African American) 82.2; Glucose 124 mg/dl (70-99); Magnesium 2.1 mg/dl (1.8-2.4); Potassium 4.1 mmol/L (3.5-5.1); Sodium 139 mmol/L (136-145)
[2020-06-17 09:38] LABS: Alkaline Phosphatase 78 U/L (45-117); Bilirubin,Total 0.3 mg/dl (0.2-1); Phosphorus 3.2 mg/dl (2.5-4.9); Total Protein 6.9 gm/dl (6.4-8.2)
[2020-06-17] MEDS: PANTOprazole 40 MG in SYRINGE 0 ML IV SCH (11:40)
[2020-06-17] MEDS ORDERED: CENTRAL PN IV SCH (16:00)
[2020-06-17] MEDS ORDERED: TPN IV SCH (16:00)
--- NOTE | 2020-06-17 19:07 | Hospitalist Progress Note ---
Date of Service June 17, 2020 Assessment & Plan (1) Pneumoperitoneum: Patient with exploratory laparotomy on 06/06/2020 and found to have a perforated diverticulum CT scan done on 06/13/2020 shows large fluid collection with concern for abscess. Patient continues on Zosyn since 06/06/2020 (day #11) * Will check a procalcitonin in the morning Drains placed by radiology Surgery following Colostomy bag now with no blood Drains with no blood Afebrile Surgery following (2) Pulmonary embolism: Most likely secondary to sedentary activity Patient with partial right knee arthroplasty approximately 2 months ago Patient then developed ruptured diverticulum requiring surgery 06/06/2020 No history of thromboembolic disease in the past No asymmetry to lower extremities Patient started on heparin drip 06/13/2020 We will discuss with surgery about transition to oral anticoagulant Continue anticoagulation Okay to ambulate as tolerated (3) Hypertension: Amlodipine was held secondary to hypotension on 06/11/2019 secondary to bleeding It was restarted on 06/13/2020 Continue lisinopril BUN and creatinine are within normal limits. Continue to follow vitals (4) Hyperlipidemia: We will hold statin until discharged and resume at that time (5) Anemia due to blood loss: Hemoglobin is stable. Increased to 9.2 from 8.7 g/Isreal No acute bleeding at this time We will continue to follow No transfusion unless hemoglobin drops below 7 g/Isreal (6) DVT prophylaxis: Patient continues on a heparin weight-based drip secondary to acute pulmonary emboli May transition to oral anticoagulant per surgery Continue to ambulate as tolerated Admission and Anticipated Discharge Date Admission Date: June 06, 2020 Subjective Patient ambulating in room today at the time of my visit. He is asymptomatic of any pain, nausea and vomiting. Continues with discharge to colostomy bag without evidence of serosanguineous material or clot. He denies any fever or chills. He feels as though he is improving. Review of Systems Review of Systems: All systems reviewed & are unremarkable except as noted in HPI & below Physical Exam Physical Exam: GENERAL : No acute distress EYES: No icterus, gaze conjugate NOSE: No evidence of epistaxis MOUTH: No lesions or candidiasis NECK: Supple LUNGS: CTA B/L, no wheezes, rales or rhonchi HEART: Regular, rate controlled ABDOMEN: Soft, NT, ND, BS Present. Drains are still in place. Colostomy bag still in place. No significant pain with palpation. EXTREMITIES: No LE edema, pedal pulses intact NEURO: A&OX3 Results & Data Results & Data ([facility]) Vital Signs (Past 12 Hours) Vital Signs Temp Pulse Resp BP Pulse Ox 06/17/20 15:40 37.0 C 94 H 18 147/85 H 99 Laboratory Results 06/17/20 08:56 06/17/20 08:56 Diagnostic Findings No further imaging since 06/13/2020 PG Care Time/CCT Total # of Minutes Spent Total Time Spent with Patient: Total time spent is greater than 50% in coordination of care (as documented) at patient's floor/unit and/or counseling patient: 25 minutes Coding Level of Care Code 75522 Subseq Hosp Care Lvl 2 Diagnoses Pneumoperitoneum K66.8 Pulmonary embolism I26.99 Hypertension I10 Hyperlipidemia E78.5 Anemia due to blood loss D50.0 DVT prophylaxis Z29.9 Time Spent (min) 25
[2020-06-18] MEDS: PIPERACILLIN/TAZOBACTAM 4.5 GM in DEXTROSE 5% 100 ML IV SCH (05:16)
--- NOTE | 2020-06-18 07:06 | Surgery Progress Note ---
Date of Service June 18, 2020 Assessment & Plan (1) S/P colon resection: Nestor is 12 days postop Priya procedure for perforated sigmoid diverticulum path noted He is tolerating a diet without any concerns or discomfort Our plan is to increase his activity DC hyperalimentation DC antibiotics will remove both drains later today and hopefully may be able to be discharged tomorrow we will arrange for visiting nurse to see him regarding wound care All questions were answered Present on Admission?: Yes Admission and Anticipated Discharge Date Admission Date: June 06, 2020 Subjective Nestor had a very good day yesterday was up and around not taken anything for pain tolerated his diet colostomy is working Physical Exam Physical Exam: Resting comfortably in bed no concerns or any pain The abdomen is soft not distended abdominal incision is clear of any cellulitis the packings intact colostomy has excellent output formed Nj drainage is intact with serous drainage the left lower quadrant percutaneous drainage catheter very little drainage all cultures are negative Results & Data ([facility]) Vital Signs (Past 12 Hours) Vital Signs Temp Pulse Resp BP Pulse Ox 06/17/20 23:44 36.9 C 96 H 18 126/81 95 PG Care Time/CCT Total # of Minutes Spent Total Time Spent with Patient: Total time spent is greater than 50% in coordination of care (as documented) at patient's floor/unit and/or counseling patient: Coding Level of Care Code None Diagnoses S/P colon resection Z90.49
[2020-06-18 08:06] LABS: Partial Thromboplastin Ratio 2.1
[2020-06-18 08:15] LABS: BUN Creatinine Ratio 13.5 (10-20); Calcium 8.8 mg/dl (8.5-10.1); Creatinine Clr Calc Pharmacy 90.5 ml/min; Est GFR (African American) 84.1; Est GFR (Non-African American) 72.5; Magnesium 2.2 mg/dl (1.8-2.4); Potassium 3.9 mmol/L (3.5-5.1)
[2020-06-18 08:16] LABS: Phosphorus 3.4 mg/dl (2.5-4.9)
[2020-06-18] MEDS: lisinopriL 5 MG TAB PO SCH (08:21)
[2020-06-18] MEDS: AMLODIPINE BESYLATE 5 MG TAB PO SCH (08:21)
[2020-06-18 08:23] LABS: Partial Thromboplastin Time 58.7 Seconds (21.0-31.0)
[2020-06-18] MEDS: HEPARIN SODIUM/DEXTROSE 25,000 UNITS/500 ML BAG IV SCH ×2 (09:58→22:33)
--- NOTE | 2020-06-18 12:39 | Hospitalist Progress Note ---
Date of Service June 18, 2020 Assessment & Plan (1) Pneumoperitoneum: Patient with exploratory laparotomy on 06/06/2020 and found to have a perforated diverticulum CT scan done on 06/13/2020 shows large fluid collection with concern for abscess. Patient continues on Zosyn since 06/06/2020 (day #11), repeat procal is WNL Drains placed by radiology, plans for d/c drains today per pt and surgery Surgery following Colostomy bag now with no blood Drains with no blood Afebrile Surgery following (2) Pulmonary embolism: Most likely secondary to sedentary activity Patient with partial right knee arthroplasty approximately 2 months ago Patient then developed ruptured diverticulum requiring surgery 06/06/2020 No history of thromboembolic disease in the past No asymmetry to lower extremities Patient started on heparin drip 06/13/2020 We will discuss with surgery about transition to oral anticoagulant Continue anticoagulation Okay to ambulate as tolerated (3) Hypertension: Amlodipine was held secondary to hypotension on 06/11/2019 secondary to bleeding It was restarted on 06/13/2020 Continue lisinopril BUN and creatinine are within normal limits. Continue to follow vitals (4) Hyperlipidemia: We will hold statin until discharged and resume at that time (5) Anemia due to blood loss: Hemoglobin is stable. Increased to 9.2 from 8.7 g/Isreal No acute bleeding at this time We will continue to follow No transfusion unless hemoglobin drops below 7 g/Isreal (6) DVT prophylaxis: Patient continues on a heparin weight-based drip secondary to acute pulmonary emboli May transition to oral anticoagulant per surgery Continue to ambulate as tolerated Admission and Anticipated Discharge Date Admission Date: June 06, 2020 Subjective Pt states he is feeling overall improved. Surgery was in and is planning to d/c drains today, still in place for now. Tolerating PO without issue. Ostomy output seems fine to him. Pt denies fever, SOB, chest pain, abd pain, n/v/c/d, LE pain or swelling. Review of Systems Review of Systems: Pertinent positives and negatives reviewed in HPI--all others negative Physical Exam Constitutional: WD/WN, vitals as above Eyes: normal visual kent by confrontation and + anicteric sclerae Neck: normal visual inspection and trachea midline Respiratory: normal respiratory effort, lungs clear to auscultation Cardiovascular: Rate/Rhythm: regular rate and regular rhythm Gastrointestinal (Abdomen): Inspection/Auscultation: abdomen not distended Percussion/Palpation: abdomen soft; abdomen nontender Musculoskeletal: Head/Neck/Chest: normocephalic and head atraumatic negative for edema, peripheral pulses intact Skin: no rashes, warm and dry Neurologic: awake; not confused Speech / Cognition: normal speech Psychiatric: A+Ox3, euthymic affect Results & Data Results & Data ([facility]) Vital Signs (Past 12 Hours) Vital Signs Temp Pulse Resp BP Pulse Ox 06/18/20 07:17 36.9 C 86 18 156/92 H 96 PG Care Time/CCT Total # of Minutes Spent Total Time Spent with Patient: Total time spent is greater than 50% in coordination of care (as documented) at patient's floor/unit and/or counseling patient: Coding Level of Care Code 13875 Subseq Hosp Care Lvl 3 Diagnoses Pneumoperitoneum K66.8 Pulmonary embolism I26.99 Hypertension I10 Hyperlipidemia E78.5 Anemia due to blood loss D50.0 DVT prophylaxis Z29.9
[2020-06-19 07:12] LABS: Hematocrit (blood only) 25.7 % (42-52); Mean Corpuscular Hemoglobin 28.1 pg (25-34); Mean Corpuscular Hgb Conc 31.1 g/dL (32-36); Mean Corpuscular Volume 90.2 fL (80-100); Mean Platelet Volume 8.8 fL (7.4-10.4); Nucleated RBC # (auto) 0.03 K/uL (0-0); Nucleated RBC % (auto) 0.2 %; Platelet Count 173 K/uL (130-400); RDW Standard Deviation 46.1 fL (36.4-46.3); Red Blood Count 2.85 M/uL (4.7-6.1); White Blood Count 11.19 K/uL (4.8-10.8)
[2020-06-19 07:35] LABS: Partial Thromboplastin Ratio 2.4
[2020-06-19 07:59] LABS: Partial Thromboplastin Time 66.6 Seconds (21.0-31.0)
[2020-06-19] MEDS: AMLODIPINE BESYLATE 5 MG TAB PO SCH (09:23)
[2020-06-19] MEDS: lisinopriL 5 MG TAB PO SCH (09:23)
--- NOTE | 2020-06-19 09:35 | Surgery Progress Note ---
Date of Service June 19, 2020 Assessment & Plan (1) S/P colon resection: Patient is progressing well tolerating a regular diet and having + ostomy output noted slight drop in hbg, we are okay with transitioning heparin gtt to oral anticoagulant, will discuss this with hospitalists their preference case management setting up home care for dressing changes; will require daily packing/wound dressing changes with wet to dry 4x4 gauze, covered with ABD and adhered with medipore tape will need ostomy supplies for at home from our standpoint okay for discharge to home today, will ensure medicine okay with plan Admission and Anticipated Discharge Date Admission Date: June 06, 2020 Subjective Patient is feeling well today. He is tolerating a diet and having + ostomy output. He denies any complaints. He has been ambulating in the hallways. He is looking forward to going home. Physical Exam Physical Exam: awake/alert Gastrointestinal (Abdomen): Inspection/Auscultation: + abdominal surgical incision (midline incision with serosang. output, packing in place) Percussion/Palpation: abdomen soft; abdomen nontender ostomy with + stool output Results & Data ([facility]) Vital Signs (Past 12 Hours) Vital Signs Temp Pulse Resp BP Pulse Ox 06/19/20 07:32 36.8 C 91 H 16 156/82 H 97 06/18/20 23:37 36.8 C 89 16 135/79 95 PG Care Time/CCT Total # of Minutes Spent Total Time Spent with Patient: Total time spent is greater than 50% in coordination of care (as documented) at patient's floor/unit and/or counseling patient: Coding Level of Care Code None Diagnoses S/P colon resection Z90.49
[2020-06-19] MEDS ORDERED: APIXABAN 5 MG TABLET PO SCH (10:45)
--- NOTE | 2020-06-19 14:08 | Hospitalist Progress Note ---
Date of Service June 19, 2020 Assessment & Plan (1) Pneumoperitoneum: Patient with exploratory laparotomy on 06/06/2020 and found to have a perforated diverticulum CT scan done on 06/13/2020 shows large fluid collection with concern for abscess. Patient continues on Zosyn since 06/06/2020, repeat procal is WNL Drains placed by radiology, d/c drains late in the day on 06/18 Surgery following Colostomy bag now with no blood Drains with no blood Afebrile Surgery following (2) Pulmonary embolism: Most likely secondary to sedentary activity Patient with partial right knee arthroplasty approximately 2 months ago Patient then developed ruptured diverticulum requiring surgery 06/06/2020 No history of thromboembolic disease in the past No asymmetry to lower extremities Patient started on heparin drip 06/13/2020 -> eliquis 10mg BID x7 (started on 06/19), then to 5mg BID after that time (3) Hypertension: Amlodipine was held secondary to hypotension on 06/11/2019 secondary to bleeding It was restarted on 06/13/2020 Continue lisinopril BUN and creatinine are within normal limits. Continue to follow vitals (4) Hyperlipidemia: We will hold statin until discharged and resume at that time (5) Anemia due to blood loss: Hemoglobin is stable. Increased to 9.2 from 8.7 g/Isreal No acute bleeding at this time We will continue to follow No transfusion unless hemoglobin drops below 7 g/Isreal (6) DVT prophylaxis: Heparin gtt to eliquis for d/c Admission and Anticipated Discharge Date Admission Date: June 06, 2020 Subjective Pt states he is feeling improved overall. Drains were taken out last night and no issues. Pt denies fever, SOB, chest pain, abd pain, n/v/c/d, LE pain or swelling. Tolerating PO without issue. He is planning for home today. Review of Systems Review of Systems: Pertinent positives and negatives reviewed in HPI--all others negative Physical Exam Constitutional: WD/WN, vitals as above Eyes: normal visual kent by confrontation and + anicteric sclerae Neck: normal visual inspection and trachea midline Respiratory: normal respiratory effort, lungs clear to auscultation Cardiovascular: Rate/Rhythm: regular rate and regular rhythm Gastrointestinal (Abdomen): Inspection/Auscultation: abdomen not distended Percussion/Palpation: abdomen soft; abdomen nontender Musculoskeletal: Head/Neck/Chest: normocephalic and head atraumatic Skin: no rashes, warm and dry Neurologic: awake; not confused Speech / Cognition: normal speech Psychiatric: A+Ox3, euthymic affect Results & Data Results & Data ([facility]) Vital Signs (Past 12 Hours) Vital Signs Temp Pulse Pulse Pulse Resp BP BP 06/19/20 13:40 36.8 C 92 H 86 91 H 16 156/82 H 136/85 06/19/20 07:32 36.8 C 91 H 16 156/82 H Pulse Ox 06/19/20 13:40 97 06/19/20 07:32 97 PG Care Time/CCT Total # of Minutes Spent Total Time Spent with Patient: Total time spent is greater than 50% in coordination of care (as documented) at patient's floor/unit and/or counseling patient: Coding Level of Care Code 96708 Subseq Hosp Care Lvl 3 Diagnoses Pneumoperitoneum K66.8 Pulmonary embolism I26.99 Hypertension I10 Hyperlipidemia E78.5 Anemia due to blood loss D50.0 DVT prophylaxis Z29.9
--- NOTE | 2020-06-20 15:17 | Discharge Summary ---
Date of Service June 20, 2020 Admission HPI Per Admitting Provider This 59-year-old gentleman has had abdominal pain since last had been seen by primary care and felt that this with the diverticular versus colonic problem was placed on bowel prep with the anticipation possible colonoscopy the patient's pain had persisted since progressively and this morning came to really excruciating and was brought into the emergency room where he appeared to have a septic picture we were asked to see him in the emergency room Principal Diagnosis Perforated sigmoid diverticulitis s/p colon resection presence of sigmoid colostomy pulmonary emboli Discharge Exam awake/alert Gastrointestinal (Abdomen) Inspection/Auscultation: + abdominal surgical incision (midline incision with serosang. output, packing in place); abdomen not distended Percussion/Palpation: abdomen soft; abdomen nontender ostomy with + brown stool Discharge Data Allergies Allergy/AdvReac Type Severity Reaction Status Date / Time No Known Allergies Allergy Verified 06/05/20 14:45 Consultations 06/06/20 07:22 ED Decision to Admit Stat 06/06/20 15:59 Consult Business Process Consultant Routine Consult Business Process Consultant Routine 06/07/20 13:53 Consult Hospitalist Routine 06/07/20 20:10 Consult Hospitalist Routine 06/18/20 07:11 Consult Case Management - Discharge Planning Routine Procedures Performed Operation Date: 06/06/20 08:45 Actual Procedures p Exploratory Laparotomy, Abdominal wash out, Sigmoid Colon Resection and Priya procedure (Not Applicable) - Allan Corea MD Ordered Studies 06/06/20 05:45 CT angio abdomen pelvis w con Stat CT angio chest dissec wo/w con Stat 06/13/20 10:45 CT abd pelvis oral and IV con Routine 06/13/20 12:13 CT abscess drainage Routine 06/13/20 12:15 CT angio chest PE protocol Routine Hospital Course (1) S/P colon resection: This is a 59y M who presented to the [facility] ED on 06/06/20 with complaints of severe abdominal pain. Workup in the ED with a CT a/p revealed free air that appeared to originate from perforated diverticulitis involving the descending and proximal to mid sigmoid colon. Decision was made to take the patient to the OR for surgical management. He was fluid resuscitated, given potassium repletion, and was started on IV abx. On 06/06/20 the patient went to the OR with Dr. Corea for an exploratory laparotomy, abdominal washout, sigmoid resection, and Priya's procedure. The patient tolerated the procedure well, see op note for full details. Post operatively he was transferred to the ICU for ongoing monitoring and care with an NGT, ostomy, gutierrez catheter, CLOVER drain, IV pain medication, and was and kept NPO with IV abx. On 06/07 the patient was deemed stable for transfer to the regular med/surg floor. Gutierrez was removed and patient able to void spontaneously. The hospitalists service was consulted for assistance with medical management throughout the patient's hospitalization. POD#2 patient's NGT was removed and he was started on clear liquids. Activity encouraged. Around POD#4 patient was noted to have bleeding from his midline incision. The on-call surgeon evaluated the patient, removed his zack drain, removed some jalen and evacuated the hematoma. The incision was packed with wet-to-dry 4x4 gauze which was then change daily. He was slowly advanced to full liquids, but he developed abdominal bloating and emesis and his diet was backed down. KUB revealed concern for an ileus. An NGT was placed and patient received a PICC line and started TPN. On 06/13 patient still with a WBC therefore a CT a/p was obtained that revealed a [id number] fluid collection in the LLQ. After discussion with the radiologist they were able to place a drain for drainage of the fluid collection without issue. Patient also underwent a CTA of the chest as the ct a/p had concerns for pulmonary artery filling defects. The chest ct confirmed bilateral pulmonary emboli and the patient was subsequently started on an IV heparin gtt. On 06/15 the patient's NGT was removed and he was restarted on a clear liquid diet. His ostomy was functioning and putting out stool. Wound care came by to provide ostomy teaching to patient and his . On 06/16 patient's diet was advanced to fulls. The radiology drain and CLOVER drain remained with serosang. output. Ostomy without bloody output. Daily dressing changes to midline continued. PT worked with patient and ongoing ambulation was encouraged. On 06/18 the patient continued to progress well and diet was advanced to low fiber. TPN was stopped. IV zosyn was stopped and both his drains were removed. On 06/19 the hospitalists transitioned the patient from heparin gtt to oral eliquis. On this day he was deemed stable for discharge to home with the help of his in addition to home health. He was instructed to follow up with Dr. Corea in clinic within 1 week. Total Time Total Time Spent Total Time Spent (In Minutes): 15 Discharge Plan Discharge Items Patient Disposition: Home - Self-Care Reason For Visit: BOWEL PERFORATION Discharge Diagnosis: sigmoid bowel resection, creation of colostomy Activity: Per Instructions section Lifting: No more than 10 pounds Bathing Comment: may shower; no soaking in tubs/pools Exercise/Sports: Wait until after follow-up appointment Driving/Machine Use: no driving until you are seen in clinic Non-emergency contact: Surgeon Call non-emergency contact if: you have any medication questions, your symptoms worsen, your pain is not controlled, your pain is worsening, your pain is unusual for you, you have a fever, your temperature is above 101.5, your wound has increased redness, your wound has increased drainage and your wound pain has increased Follow-up/Referrals: Allan Corea MD [Surgeon] - 06/25/20 10:00 am (Please call to schedule follow up in clinic within 1 week) Zaida Leroy PA-C [Primary Care Provider] - Diet: Low Fiber Addtl Attending Provider Instructions: Please change your Colostomy bag as you have been instructed to prior to discharge from the hospital. You will be sent home with supplies for this. Your midline abdominal wound dressing should be changed daily. Pack wound with wet-to-dry 4x4 gauze (normal saline), cover with ABD pad, and adhere with medipore tape. Please be aware that both Percocet and Tylenol contain Acetaminophen and that you should not exceed 3grams of Acetaminophen within a 24 hour time period. If you do not require the narcotic Percocet for pain you may take plain Tylenol 650mg orally every 6 hours as needed. You will take eliquis for your blood clots. You should take 10mg (2 tablets) twice a day for the next 7 days. After that, you can take 5mg (1 tablet) twice a day. Pending Studies at Discharge: Yes Studies:: surgical pathology Stand-Alone Forms: Enfort[employer], Smoking Cessation Medications and DC Order Prescriptions: New oxycodone-acetaminophen [Percocet] 5-325 mg tablet 1 - 2 tab PO .q4-6h PRN (Reason: pain, for initial therapy, max 6 tabs per day) Qty: 15 RF: 0 Eliquis 5 mg Tablet 10 mg PO BID Qty: 60 RF: 0 Continued atorvastatin 20 mg Tablet 20 mg PO QAM RF: 0 chlorthalidone 25 mg Tablet 25 mg PO QAM RF: 0 amlodipine 5 mg Tablet 5 mg PO DAILY RF: 0 ibuprofen 200 mg Tablet 600 mg PO BID RF: 0 lisinopril 40 mg Tablet 40 mg PO QAM RF: 0 Discharge Orders: Discharge Order (Routine); Ordered 06/19/20 Ordered By: Augustina Hart Admission Data Admit Date/Time: 06/06/20 13:20 Attending Provider: Allan Corea Admit Provider: lAlan Corea Primary Care Provider: Zaida Leroy Other Providers: Mustapha Gallagher ; [facility] ; Allan Corea ; Jonathan Hensley ; Mary Farrell ; Yudelka Almaguer ; Donn Gutierrez ; Brett Flores ; Thierno Pop ; Ashlie Rodriguez ; Tessy Fonseca ; Marlen Landeros ; Sharath Gaviria ; Parris Vizcarra ; Maria M Stoll ; Caden Carpenter ; Davion Vitale ; Elliott Juarez ; Alysia Patton ; Micky Shepherd ; Jonathan Ojeda Jonathan M. ; Keiry Lamar ; Jonn Blackwood ; Keli Perea ; Luanne Perea ; Naren Connolly ; Anais Wilson ; David Lopez ; Brian Alcocer ; Leandra Poole ; Spencer Murray Other Interventions: Discharge Summary Assessment (RN) Last Done: 06/19/20 13:40 Coding Level of Care Code D/C Day Management <30 mins Diagnoses S/P colon resection Z90.49
--- NOTE | 2020-06-25 13:32 | Coding Query ---
CODING QUERY To promote full compliance with coding requirements relating to patient care, provider participation is requested in all cases of senior estimator uncertainty. Please assist us with the question(s) below: Coding Question(s): 1. Please specify below, in your clinical opinion, regarding the Hematoma. ( ) likely a postoperative complication ( ) not a postoperative complication ( ) Other: Please Specify__likely related to DVT prophylaxis 2. Please specify below, in your clinical opinion, regarding the fluid collection with documentation of fluid collection with concern for abscess in Progress Notes. ( ) fluid collection with possible abscess ( ) likely a postoperative complication ( ) not a postoperative complication ( ) Other: Please Specify 3. There is documentation of Sepsis on ER and on the 06/07/20 Critical Care Progress Note, with documentation on the H&P of appeared to have a septic picture. Please specify below, regarding Sepsis. ( ) Likely Sepsis ( ) Sepsis is Ruled-out ( ) Other: Please Specify ralted to abdominal washout no growth Physician's Response(s): Thank you Su Mack Principal Diagnosis: "that condition established after study, to be chiefly responsible for occasioning the admission of the patient to the hospital for care." Co-Existing Principal Diagnosis: "when two or more diagnoses equally meet the criteria for principal diagnosis as determined by the circumstances of admission, diagnostic work up, and/or therapy provided, and the Alphabetic Index, Tabular List, or another coding guideline does not provide sequencing direction, any one of the diagnoses may be sequenced first." "When the physician has documented what appears to be a current diagnosis in the body of the record, but has not included the diagnosis in the final diagnostic statement, the physician should be asked whether the diagnosis should be added." (Source [facility]oding [facility] 2 QTR90. p3-4) ANIBAL
--- NOTE | 2020-06-26 06:00 | Coding Query ---
CODING QUERY To promote full compliance with coding requirements relating to patient care, provider participation is requested in all cases of crystal lapper uncertainty. Please assist us with the question(s) below: Coding Question(s): Thank you for answering two of the questions on the previous query. The following question was unanswered on the previous query. Please specify below, in your clinical opinion, regarding the fluid collection with documentation of fluid collection with concern for abscess in Progress Notes. ( ) fluid collection with possible abscess ( ) likely a postoperative complication ( x ) not a postoperative complication ( ) Other: Please Specify Physician's Response(s): Thank you Su Mack Principal Diagnosis: "that condition established after study, to be chiefly responsible for occasioning the admission of the patient to the hospital for care." Co-Existing Principal Diagnosis: "when two or more diagnoses equally meet the criteria for principal diagnosis as determined by the circumstances of admission, diagnostic work up, and/or therapy provided, and the Alphabetic Index, Tabular List, or another coding guideline does not provide sequencing direction, any one of the diagnoses may be sequenced first." "When the physician has documented what appears to be a current diagnosis in the body of the record, but has not included the diagnosis in the final diagnostic statement, the physician should be asked whether the diagnosis should be added." (Source Coding [facility] 2 QTR90. p3-4) ANIBAL
== END 2020-06-19 14:17 | disposition home health service (06) | DRG 329 ==
LOC: ED 05:29 → OR 07:56 → 1E 07:56 → 3N 06-07 17:25

== ENCOUNTER 2020-12-13 06:51 | Inpatient (IN) ==
--- NOTE | 2020-12-07 13:42 | Anesthesiology Consultation ---
Date of Service December 07, 2020 Assessment & Plan (1) Encounter for pre-operative examination: COVID Status: As of 12/05 nurse assessment, patient denies travel to endemic area, known exposure/sick contacts, or symptoms of COVID19. Preoperative COVID19 testing completed on 12/07, results pending. Chart Review Chart Review: Acceptable Risk for Surgery and Patient NOT seen in Pre Admission Testing History Surgery Operation Date: 12/13/20 09:10 Proposed Procedures p Laparoscopic Assisted Closure of Colostomy, Possible Open - Allan Corea MD Height/Weight Height: 5 ft 10.5 in Weight: 117.934 kg Allergies Allergy/AdvReac Type Severity Reaction Status Date / Time No Known Allergies Allergy Verified 12/05/20 12:48 Medications Home Medications Medication Instructions Recorded Confirmed Last Taken amlodipine 5 mg PO QAM 04/13/20 12/05/20 10/04/20 06:00 atorvastatin 20 mg PO HS 04/13/20 12/05/20 10/03/20 21:00 chlorthalidone 25 mg PO QAM 04/13/20 12/05/20 10/03/20 08:00 lisinopril 40 mg PO QAM 04/13/20 12/05/20 10/04/20 06:00 metronidazole 500 mg tablet 500 mg PO .COMPLEX #3 tab 12/03/20 12/05/20 Unknown neomycin 500 mg tablet 1 g PO .COMPLEX #6 tab 12/03/20 12/05/20 Unknown Past Medical History Medical History Diverticulitis Hyperlipidemia Hypertension Osteoarthritis Pulmonary embolism After ex lap 06/06/2020---was on eliquis, taken off 09/29/2020 Past Family History Family History Brother Cancer Family history of stomach cancer at age 54 Mother Heart disease Hypertension Father Heart disease Hypertension Stroke Other No family history of adverse response to anesthesia Past Surgical History Surgical History History of colostomy currently in place since 06/06/2020 - ruptured diverticuli History of partial knee replacement left History of tooth extraction S/P colon resection (06/06/20) Exploratory Laparotomy, Abdominal wash out, Sigmoid Colon Resection and Priya procedure has colostomy Dr. Corea 06/06/2020 Status post right partial knee replacement (~03/2020) Social History Smoking Status: Never smoker Do You Dip or Chew Tobacco: No Hx Alcohol Use: Yes Alcohol type: wine alcohol intake frequency: holidays/special occasions only Hx Substance Use: No substance use type: does not use Testing Laboratory Results 12/07/20 WBC: 7.01 H/H: 13.7/42.5 PLATELETS: 277 SODIUM: 141 POTASSIUM: 3.7 CHLORIDE: 106 CO2: 28 BUN: 21 CREATININE: 1.22 GLUCOSE: 90 Electrocardiogram Date: 04/18/20 Findings: + NSR @ (66bpm) *EKG from 06/06/20 extremely poor data quality, interpretation adversely affected. Chest X-Ray Date: 04/18/20 Findings: + NAD
[~2020-12-13 06:51] MED LIST changes: -ACETAMINOPHEN 500 MG TAB PO SCH; -CEFAZOLIN 2000MG 2,000 MG/15 ML SYR IV SCH; -FAMOTIDINE 20 MG TAB PO SCH; -GABAPENTIN 600 MG DOSE PO SCH; -LR 500ML BOLUS, THEN 15ML/HR IV SCH; -LR 60ML/HR IV SCH; -ROPIVACAINE 0.5% HCL/PF 150 MG, BUPIVACAINE 0.5% MPF 30 ML, EPINEPHrine 30MG/30ML (OR U... INSTIL SCH; -TRANEXAMIC ACID 1,000 MG **IV Intra-op IV SCH; -TRANEXAMIC ACID 1,000 MG **IV Pre-op IV SCH; -dexAMETHasone 4 MG TAB PO SCH
--- NOTE | 2020-12-13 08:04 | History & Physical Bridge Note ---
Date of Service December 13, 2020 History & Physical Bridge Note I have examined the patient, reviewed the History & Physical and in the interval since the performance of the History & Physical I have noted the following changes of clinical significance: no changes noted all question answered
[2020-12-13] MEDS ORDERED: HEPARIN SOD 5,000 UNIT/0.5 ML VIAL SQ STA (08:05)
[2020-12-13] MEDS ORDERED: HEPARIN SOD 5,000 UNIT/0.5 ML VIAL ONE (08:16)
[2020-12-13] MEDS ORDERED: MIDAZOLAM HCL 1 MG/ML 2ML VIAL ONE (08:56)
[2020-12-13] MEDS ORDERED: fentaNYL citrate 100 MCG/2 ML VIAL ONE ×2 (08:56→10:44)
[2020-12-13] MEDS ORDERED: ONDANSETRON INJ 2 MG/ML 2 ML VIAL IV PRN ×2 (09:00→15:50)
[2020-12-13] MEDS ORDERED: fentaNYL citrate 100 MCG/2 ML VIAL IV PRN (09:00)
[2020-12-13] MEDS ORDERED: HYDROmorphone INJ 1 MG/ML SYRINGE IV PRN (09:00)
[2020-12-13] MEDS ORDERED: ePHEDrine sulfate 50 MG/ML AMP IV PRN (09:00)
[2020-12-13] MEDS ORDERED: ATROPINE SULFATE 0.1 MG/ML 10ML SYR IV PRN (09:00)
[2020-12-13] MEDS ORDERED: BUPIVACAINE 0.5 % 5 MG/1 ML MPF 30ML VIAL ONE (09:58)
[2020-12-13] MEDS ORDERED: cefOXitin 2,000 MG in DEXTROSE 5% 50 ML IV ONE (11:57)
[2020-12-13] MEDS ORDERED: DEXAMETHASONE SOD INJ 4 MG/ML VIAL ONE (12:09)
[2020-12-13] MEDS ORDERED: PHENYLEPHRINE 100MCG/ML 5ML SYR ONE (12:09)
[2020-12-13] MEDS ORDERED: LIDOCAINE HCL 2% 2 ML VIAL/AMP(20MG/ML) INFIL ONE (12:09)
[2020-12-13] MEDS ORDERED: ONDANSETRON INJ 2 MG/ML 2 ML VIAL ONE ×2 (12:09→14:25)
[2020-12-13] MEDS ORDERED: ROCURONIUM BROMIDE 10 MG/ML 5 ML VIAL IV ONE (12:09)
[2020-12-13] MEDS ORDERED: PROPOFOL IV EMULSION 10 MG/ML 20 ML VIAL IV ONE ×2 (12:09→14:44)
[2020-12-13] MEDS ORDERED: NEOSTIGMINE METHYLSULFATE 5 MG/5 ML SYR ONE (12:09)
[2020-12-13] MEDS ORDERED: LARYING-O-JET KIT (LTA) ONE (12:09)
[2020-12-13] MEDS ORDERED: GLYCOPYRROLATE 0.2 MG/ML VIAL ONE ×2 (12:09→14:25)
[2020-12-13] MEDS ORDERED: HYDROmorphone INJ 1 MG/ML SYRINGE ONE ×2 (12:10→12:46)
--- NOTE | 2020-12-13 14:29 | Post Operative Brief Note ---
PG Immediate Post Op with CF Date of Surgery December 13, 2020 Pre & Post Diagnosis Operation Date: 12/13/20 09:10 Pre-Op Diagnosis: Diverticulitis, Colostomy in Place Post-Op Diagnosis: Diverticulitis, Colostomy in Place I identified the patient and participated in the time-out.: Yes Procedure Operation Date: 12/13/20 09:10 Actual Procedures p Laparoscopic-Assisted Closure of Colostomy, Partial Sigmoid Colon resection, Lysis of Adhesions, Intraoperative Sigmiodoscopy(Not Applicable) - Allan Corea MD Surgeon Allan Corea MD Yeast Culture Operator b edwina fairchild Estimated Blood Loss 250 Findings Consistent with Post-Op Diagnosis Specimens Specimen Description: #1.) urine culture Permanent Specimen A.) sigmoid colon Drains Nj Drain (19 round) and Hernandez Catheter
--- NOTE | 2020-12-13 14:49 | Operative Report ---
PG Post Operative Report Pre & Post Diagnosis Operation Date: 12/13/20 09:10 Pre-Op Diagnosis: Diverticulitis, Colostomy in Place Post-Op Diagnosis: Diverticulitis, Colostomy in Place I identified the patient and participated in the time-out.: Yes Procedure Operation Date: 12/13/20 09:10 Actual Procedures p Laparoscopic-Assisted Closure of Colostomy, Partial Sigmoid Colon Resection, Lysis of Adhesions, Intraoperative Sigmiodoscopy(Not Applicable) - Allan Corea MD The patient was brought into the operating theater general trach anesthesia lithotomy position the abdomen was prepped as well as scrub solution as was the perineal area and probably draped a timeout was had patient was identified systemic antibiotics on board this point we made a small incision above the umbilicus sufficient enough to place a Veress needle followed by CO2 followed by 5 mm trocar point of interest back to no injury identified with we identified in the lower midline incision there was some omental adhesions appreciated and also we could see some adhesions in the right lower quadrant this was omentum adherent to the abdominal wall or some preperitoneal of adipose tissue since the patient was pretty vague at this point we placed a right millimeter right lower quadrant port with preemptive local analgesic and were able to evaluate down the pelvis after we took some adhesions from the anterior abdominal wall down to the small bowel these were fine adhesions that we could take and clipped from the diameter was probably 3 to 4 cm we used a 5 mm clip pipe manufacture supervisor to free these they were basically suspended once we had to get the pneumoperitoneum at this point we placed the patient in reverse Trendelenburg position we could actually see where we had tacked down the line of resection of the rectosigmoid out of the pelvis with a Prolene suture. Was flat I elected to place a 5 mm left flank port with preemptive local analgesic and we are he took down some more adhesions to the anterior abdominal wall and towards the left gutter we can identify there is some adhesions around the colostomy also. The using the 2 lateral 5 mm trochars we were able then to free up the sigmoid colon that has been elevated and suspended out of the pelvis and we identified that this is the area seem to be quite long we probably still has some sigmoid colon there but since it was the the gentleman was quite big I elected to basically leave that it is it is in need be even try to do an colon anastomosis with EEA bringing it through even proximal to the previous line of resection of the sigmoid colon. At this point we deflated the patient and made elliptical incision around the colostomy site took that down to the anterior abdominal wall where we were able to identify the anterior rectus and posterior rectus we freed up the colostomy sufficient enough and thought that it was long enough that with probably could go down the pelvis at this point we resected this part of the colostomy and area of the colon that was freshly free of any disease. Once we had opened the colon I placed a 28 or 29 dilator to gauge the EEA stapler that would be used a Prolene suture was used in a running fashion at the edge of the colon that would be tied as a pursestring around the angle that we positioned. We freed up some fatty tissue around the edge of the anterior to the interval. This point returned everything intra-abdominally and closed the colostomy site in multiple layers using posterior rectus and indurated area with #1 Vicryl suture in a continuous fash ion and also close the anterior rectus and external fascia with the similar running Vicryl suture we packed the area with a gauze and held in place with towel clip 1 our attention was then to reestablish pneumoperitoneum and proceed with a anastomosis at this point we placed a dilator through the rectum and try to place the EEA and we were pretty much in the line of resection as far as the length of the a but there was a strictured to me and appeared to be distal sigmoid rectal area that we were unable to pass the anvil beyond that we tried multiple maneuvers but were not successful I was concerned that there possibly could be something in that area since the patient after the Priya procedure we will send him to technical training manager to do a colonoscopy and also checked the rectum and I did the colonoscopy was free of any lesions but they did not do the rectum because they felt that the patient was not prepped and he was never asked to go back again. I elected at this point since not being sure what was going on there to make an incision which we did we converted to an open procedure in the suprapubic area going through the old scar and entered the abdomen needless to say the patient has significant amount of scar tissue in the is abdomen and an abdominal incision probably about 4 inches subcutaneous fatty tissue once we entered the abdomen we can see the sigmoid: The staple line was intact and palpating the area was hard to evaluate where the line of stricture was by palpation there was certainly nothing externally this point I large the incision brought down the animal to do seated one anastomosis and placed a right angle clamp right at the sigmoid rectal junction freed up the mesentery using 302 0 silk sutures the patient had a very friable mesentery to the remaining tissue we then opened up the sigmoid colon and as we inspected further we found more more diverticuli I then placed the scope that we used for the laparoscopy inside the sigmoid colon to visualize the area that we felt is a stricture and there was nothing intraluminally there was a seem to be a scar tissue area. Wesley had an open procedure and elected this point to do an end-to-end anastomosis the sigmoid colon and descending colon proximally with brought in closer to the rectosigmoid junction we took the anvil out and placed an end-to-end anastomosis using 3-0 silk outer layer 3-0 chromic inner area there was some discrepancy between the proximal colon and the distal colon therefore we usually check on skin to accommodate the discrepancy. The anastomosis appeared secure. Then closed the abdomen after placing a drain in the pelvic area a Nj drain taken out the right lower quadrant incision attaching skin edge with 2-0 silk lower midline incision was closed with a 905 0 chromic for the peritoneum and a continuous #1 PDS for the fascia and the scar tissue from previous incision I did place 2 or three #1 Vicryl interrupted retention suture subcutaneously quarter inch Lima placed in the incision jalen for skin edges the Mer[place]ez was tied distally approximately 3-0 silk suture the procedure was tolerated well by the patient estimated blood loss approximately 250 cc addendum Lori fairchild was present throughout the procedure and helped the retraction exposure and wound closure Surgeon Allan Corea MD Supervisor Cab lori fairchild Estimated Blood Loss 250 Findings Consistent with Post-Op Diagnosis Specimens sigmoid colon x 3 pieces Description of Procedure merda I attest to the content of the Intraoperative Record and any orders documented therein. Any exceptions are noted below.
--- NOTE | 2020-12-13 15:49 | Anesthesiology Progress Note ---
Date of Service December 13, 2020 Anesthesia Post Procedure Vital Signs Vital Signs: Temp Pulse Pulse Resp BP Pulse Ox 12/13/20 15:35 36.4 C L 95 H 12 141/89 H 100 12/13/20 15:25 92 H 12 149/90 H 99 12/13/20 15:15 96 H 12 143/89 H 97 12/13/20 15:05 89 11 L 132/88 98 12/13/20 14:55 96 H 12 146/95 H 98 12/13/20 14:48 36.0 C L 103 H 14 168/108 H 100 12/13/20 07:19 36.8 C 91 H 18 124/83 98 Transfer of Care Handoff Completed per policy Notes Mental Status: alert / awake / arousable and participated in evaluation Patient Amnestic to Procedure: Yes Nausea / Vomiting: adequately controlled Pain: adequately controlled Airway Patency, RR, SpO2: stable & adequate BP & HR: stable & adequate Hydration State: stable & adequate Anesthetic Complications: no major complications apparent and Pt Satisfied with anesthetic care
[2020-12-13] MEDS ORDERED: NALOXONE HCL 0.4 MG/1 ML VIAL/CARP IV PRN (15:50)
[2020-12-13] MEDS: LACTATED RINGER'S 1,000 ML IV SCH ×2 (16:07→23:31)
[2020-12-13] MEDS: SODIUM CHLORIDE 0.9% 1000ML 1,000 ML IV SCH (16:08)
[2020-12-13] MEDS: MoRPHine SULFATE PCA 30 MG/30 ML IV PRN (16:19)
[2020-12-13] MEDS: cefOXitin 2,000 MG in DEXTROSE 5% 50 ML IV SCH (17:52)
[2020-12-13] MEDS: HEPARIN SOD 5,000 UNIT/0.5 ML VIAL SQ SCH (21:26)
[2020-12-14] MEDS: cefOXitin 2,000 MG in DEXTROSE 5% 50 ML IV SCH ×3 (00:25→11:20)
[2020-12-14] MEDS: HEPARIN SOD 5,000 UNIT/0.5 ML VIAL SQ SCH ×3 (05:19→21:29)
[2020-12-14] MEDS: MoRPHine SULFATE PCA 30 MG/30 ML IV PRN (06:14)
[2020-12-14 07:08] LABS: Hematocrit (blood only) 39.5 % (42-52); Hemoglobin 12.9 g/dL (14.0-18.0); Immature Granulocytes # (auto) 0.03 K/uL (0.00-0.02); Immature Granulocytes % (auto) 0.2 %; Lymphocytes # (auto) 1.32 K/uL (1.2-3.4); Lymphocytes % (auto) 9.4 %; Mean Corpuscular Hemoglobin 27.2 pg (25-34); Mean Corpuscular Hgb Conc 32.7 g/dL (32-36); Mean Corpuscular Volume 83.2 fL (80-100); Mean Platelet Volume 8.6 fL (7.4-10.4); Monocytes # (auto) 1.55 K/uL (0.11-0.59); Neutrophils # (auto) 11.13 K/uL (1.4-6.5); Neutrophils % (auto) 79.4 %; Platelet Count 263 K/uL (130-400); RDW Coefficient of Variation 14.9 % (11.5-14.5); RDW Standard Deviation 45.2 fL (36.4-46.3); Red Blood Count 4.75 M/uL (4.7-6.1); White Blood Count 14.03 K/uL (4.8-10.8)
[2020-12-14] MEDS ORDERED: SODIUM CHLORIDE 0.9% 1000ML 500 ML IV ONE (07:25)
[2020-12-14 07:31] LABS: BUN Creatinine Ratio 10.5 (10-20); Calcium 8.7 mg/dl (8.5-10.1); Creatinine Clr Calc Pharmacy 61.9 ml/min; Est GFR (African American) 51.9; Est GFR (Non-African American) 44.8; Potassium 4.1 mmol/L (3.5-5.1)
--- NOTE | 2020-12-14 07:36 | Surgery Progress Note ---
Date of Service December 14, 2020 Assessment & Plan (1) Presence of sigmoid colostomy: Operative findings was discussed with the patient including noting a stricture done in the rectosigmoid junction that we had scoped intraoperatively and found no lesions probably some inflammatory response previous surgery also told him that the tissue around that we were operating was very friable namely the mesentery that would not even hold sutures At this point will increase his IV fluids normal bolus his white count is elevated as expected from the dissection hemoglobin noted BUN and creatinine not available yet We will leave the NG tube in for today once allowed but other other see how he d oes we will check later on this morning or early afternoon We will bolus him with some normal saline at this time may need some potassium replacement awaiting labs Leave Hernandez in for today to monitor more is fluid status Present on Admission?: Yes Admission and Anticipated Discharge Date Admission Date: December 13, 2020 Subjective Patient is alert comfortable no distress states had some analgesics bag turner He had been taking p.o. water for what he describes as to 1 12 ounce cups Physical Exam Physical Exam: Is alert coherent comfortable wanting to have G-tube out Sclerae nonicteric oropharyngeal area tongue moist although he has been drinking water NG tube in place which is drainage clear nonbilious fluids collections representative of what has been taken p.o. The abdomen is soft with the expected discomfort surgery is nontender Lower midline incision he does have some blood-tinged on his dressing reflecting of the subcu heparin that he is getting and also the [place] drain that is in the subcu The colostomy site the packings intact with no obvious saturation The Nj drain that is in the pelvis serous slightly sanguinous fluid in the bulb No peripheral edema urine is clear I and 0 noted Results & Data ([facility]) Vital Signs (Past 12 Hours) Vital Signs Temp Pulse Resp BP Pulse Ox 12/14/20 03:00 36.5 C 17 124/84 95 12/13/20 23:15 37.0 C 101 H 17 116/81 96 12/13/20 20:07 36.6 C 107 H 18 133/78 90 PG Care Time/CCT Total # of Minutes Spent Total Time Spent with Patient: Total time spent is greater than 50% in coordination of care (as documented) at patient's floor/unit and/or counseling patient: Coding Level of Care Code None Diagnoses Presence of sigmoid colostomy Z93.3
[2020-12-14] MEDS: LACTATED RINGER'S 1,000 ML IV SCH (08:20)
[2020-12-14] MEDS: amLODIPine BESYLATE 5 MG TAB PO SCH (08:23)
[2020-12-14] MEDS: lisinopril 40 MG TAB PO SCH (08:23)
[2020-12-14] MEDS: CHLORTHALIDONE 25 MG TAB PO SCH (08:23)
[2020-12-14] MEDS: D5W AND LACTATED RINGERS 1,000 ML IV SCH ×2 (13:20→20:14)
[2020-12-14] MEDS: SODIUM CHLORIDE 0.9% 1000ML 1,000 ML IV SCH (13:21)
[2020-12-15] MEDS: D5W AND LACTATED RINGERS 1,000 ML IV SCH ×2 (02:13→09:05)
[2020-12-15] MEDS: HEPARIN SOD 5,000 UNIT/0.5 ML VIAL SQ SCH ×3 (06:03→22:15)
[2020-12-15 06:58] LABS: Eosinophils # (auto) 0.05 K/uL (0-0.5); Eosinophils % (auto) 0.5 %; Hematocrit (blood only) 35.7 % (42-52); Hemoglobin 11.4 g/dL (14.0-18.0); Immature Granulocytes # (auto) 0.02 K/uL (0.00-0.02); Immature Granulocytes % (auto) 0.2 %; Lymphocytes # (auto) 1.08 K/uL (1.2-3.4); Lymphocytes % (auto) 11.3 %; Mean Corpuscular Hemoglobin 27.1 pg (25-34); Mean Corpuscular Hgb Conc 31.9 g/dL (32-36); Mean Platelet Volume 8.7 fL (7.4-10.4); Monocytes # (auto) 0.99 K/uL (0.11-0.59); Monocytes % (auto) 10.4 %; Neutrophils # (auto) 7.41 K/uL (1.4-6.5); Neutrophils % (auto) 77.6 %; Platelet Count 234 K/uL (130-400); RDW Coefficient of Variation 15.3 % (11.5-14.5); RDW Standard Deviation 47.8 fL (36.4-46.3); White Blood Count 9.55 K/uL (4.8-10.8)
[2020-12-15 07:53] LABS: BUN Creatinine Ratio 12.3 (10-20); Calcium 8.4 mg/dl (8.5-10.1); Creatinine Clr Calc Pharmacy 87.8 ml/min; Est GFR (African American) 79.2; Est GFR (Non-African American) 68.3; Potassium 3.4 mmol/L (3.5-5.1)
[2020-12-15] MEDS: lisinopril 40 MG TAB PO SCH (09:05)
[2020-12-15] MEDS: amLODIPine BESYLATE 5 MG TAB PO SCH (09:05)
[2020-12-15] MEDS: CHLORTHALIDONE 25 MG TAB PO SCH (09:06)
--- NOTE | 2020-12-15 10:31 | Surgery Progress Note ---
Date of Service December 15, 2020 Assessment & Plan (1) Status post colostomy takedown: POD #2 colostomy takedown, awaiting return of bowel function DC Hernandez Recommend ambulation, out of bed to chair 3 times daily Continue NG tube for now, may clamp later this afternoon Continue heparin subcu 3 times daily Continue PATENTED HOGSHEAD ASSEMBLER until able to take diet Admission and Anticipated Discharge Date Admission Date: December 13, 2020 Subjective 60-year-old male POD #2 colostomy takedown. Feels better than he did yesterday, NG tube currently clamped. Has not passed gas Physical Exam Constitutional: WD/WN, vitals as above Gastrointestinal (Abdomen): normal bowel sounds, soft, nontender, no hepatosplenomegaly Inspection/Auscultation: + abdominal surgical incision (Mercedez in place, no infection) Results & Data ([facility]) Vital Signs (Past 12 Hours) Vital Signs Temp Pulse Pulse Resp BP Pulse Ox 12/15/20 07:22 36.6 C 98 H 20 126/82 92 12/15/20 05:05 37.3 C 97 H 14 120/82 93 12/14/20 22:54 37.2 C 93 H 18 152/89 H 93 PG Care Time/CCT Total # of Minutes Spent Total Time Spent with Patient: Total time spent is greater than 50% in coordination of care (as documented) at patient's floor/unit and/or counseling patient: Coding Level of Care Code None Diagnoses Status post colostomy takedown Z98.890
[2020-12-15] MEDS: SODIUM CHLOR 0.45% + 20MEQ KCL 20 MEQ/1,000 ML BAG IV SCH ×2 (10:45→22:16)
[2020-12-15] MEDS: MoRPHine SULFATE PCA 30 MG/30 ML IV PRN (10:46)
[2020-12-15] MEDS ORDERED: D5W AND 1/2NSS + 20MEQ KCL 20 MEQ/1,000 ML BAG IV SCH (11:00)
[2020-12-15] MEDS: SODIUM CHLORIDE 0.9% 1000ML 1,000 ML IV SCH (16:28)
[2020-12-16] MEDS: SODIUM CHLOR 0.45% + 20MEQ KCL 20 MEQ/1,000 ML BAG IV SCH ×3 (03:38→20:55)
[2020-12-16] MEDS: HEPARIN SOD 5,000 UNIT/0.5 ML VIAL SQ SCH ×3 (06:14→23:13)
[2020-12-16 06:24] LABS: Basophils # (auto) 0.02 K/uL (0-0.2); Basophils % (auto) 0.2 %; Eosinophils # (auto) 0.27 K/uL (0-0.5); Eosinophils % (auto) 3.1 %; Hematocrit (blood only) 35.7 % (42-52); Hemoglobin 11.3 g/dL (14.0-18.0); Immature Granulocytes # (auto) 0.02 K/uL (0.00-0.02); Immature Granulocytes % (auto) 0.2 %; Lymphocytes # (auto) 1.45 K/uL (1.2-3.4); Lymphocytes % (auto) 16.6 %; Mean Corpuscular Hemoglobin 27.2 pg (25-34); Mean Corpuscular Hgb Conc 31.7 g/dL (32-36); Mean Platelet Volume 8.7 fL (7.4-10.4); Monocytes # (auto) 0.68 K/uL (0.11-0.59); Monocytes % (auto) 7.8 %; Neutrophils # (auto) 6.27 K/uL (1.4-6.5); Neutrophils % (auto) 72.1 %; Platelet Count 235 K/uL (130-400); RDW Coefficient of Variation 15.1 % (11.5-14.5); RDW Standard Deviation 47.8 fL (36.4-46.3); Red Blood Count 4.15 M/uL (4.7-6.1); White Blood Count 8.71 K/uL (4.8-10.8)
[2020-12-16 06:59] LABS: BUN Creatinine Ratio 16.3 (10-20); Calcium 8.4 mg/dl (8.5-10.1); Creatinine Clr Calc Pharmacy 100.7 ml/min; Est GFR (African American) 93.5; Est GFR (Non-African American) 80.6; Potassium 3.4 mmol/L (3.5-5.1)
[2020-12-16] MEDS: CHLORTHALIDONE 25 MG TAB PO SCH (08:45)
[2020-12-16] MEDS: amLODIPine BESYLATE 5 MG TAB PO SCH (08:45)
[2020-12-16] MEDS: lisinopril 40 MG TAB PO SCH (08:45)
--- NOTE | 2020-12-16 11:10 | Surgery Progress Note ---
Date of Service December 16, 2020 Assessment & Plan (1) Status post colostomy takedown: POD #3 s/p Colostomy takedown. He continues to improve. Hernandez catheter has been removed. Continue LINE SERVICE SUPERVISOR until oral intake has resumed. NG tube clamped currently- clamp for 4 hrs and if residual is less than 250cc, ok to remove NG tube. Will await return of bowel function to start PO intake. Admission and Anticipated Discharge Date Admission Date: December 13, 2020 Supervising Physician Co-Signing Physician Notes Patient seen and examined, agree with above. POD #3 colostomy takedown. No return of flatus yet. Voiding without Hernandez. Pain controlled. On exam afebrile stable vitals. Abdomen with appropriate tenderness, soft. Mild distention. Incision with jalen and Mercedez, no evidence of infection. Labs unremarkable. We will clamp NG tube today, remove if tolerates after 4 hours and residuals less than 250. May start sips and chips after that, weight flatus before advancing to clear liquids. Subjective 60-year-old male POD #3 colostomy takedown. He continues to feel better. NG tube is currently clamped. Has not passed gas, but feels that he may start to soon. He denies nausea. Physical Exam Constitutional: WD/WN, vitals as above Gastrointestinal (Abdomen): normal bowel sounds, soft, nontender, no hepatosplenomegaly Inspection/Auscultation: + abdominal surgical incision ([place] in place, no infection) Results & Data ([facility]) Vital Signs (Past 12 Hours) Vital Signs Temp Pulse Pulse Resp BP Pulse Ox 12/16/20 07:13 36.3 C L 86 20 121/77 94 12/16/20 03:00 37 C 93 H 16 129/79 94 PG Care Time/CCT Total # of Minutes Spent Total Time Spent with Patient: Total time spent is greater than 50% in coordination of care (as documented) at patient's floor/unit and/or counseling patient: Coding Level of Care Code None Diagnoses Status post colostomy takedown Z98.890
[2020-12-16] MEDS: SODIUM CHLORIDE 0.9% 1000ML 1,000 ML IV SCH (16:51)
[2020-12-17] MEDS: SODIUM CHLOR 0.45% + 20MEQ KCL 20 MEQ/1,000 ML BAG IV SCH (05:21)
[2020-12-17] MEDS: HEPARIN SOD 5,000 UNIT/0.5 ML VIAL SQ SCH ×3 (05:22→22:35)
[2020-12-17 06:18] LABS: Basophils # (auto) 0.01 K/uL (0-0.2); Basophils % (auto) 0.1 %; Eosinophils # (auto) 0.35 K/uL (0-0.5); Eosinophils % (auto) 4.5 %; Hematocrit (blood only) 35.5 % (42-52); Hemoglobin 11.6 g/dL (14.0-18.0); Immature Granulocytes # (auto) 0.03 K/uL (0.00-0.02); Immature Granulocytes % (auto) 0.4 %; Lymphocytes # (auto) 1.32 K/uL (1.2-3.4); Lymphocytes % (auto) 17.1 %; Mean Corpuscular Hemoglobin 27.3 pg (25-34); Mean Corpuscular Hgb Conc 32.7 g/dL (32-36); Mean Corpuscular Volume 83.5 fL (80-100); Mean Platelet Volume 9.1 fL (7.4-10.4); Monocytes # (auto) 0.55 K/uL (0.11-0.59); Monocytes % (auto) 7.1 %; Neutrophils # (auto) 5.45 K/uL (1.4-6.5); Neutrophils % (auto) 70.8 %; Platelet Count 280 K/uL (130-400); RDW Coefficient of Variation 14.7 % (11.5-14.5); RDW Standard Deviation 45.1 fL (36.4-46.3); Red Blood Count 4.25 M/uL (4.7-6.1); White Blood Count 7.71 K/uL (4.8-10.8)
[2020-12-17 06:53] LABS: BUN Creatinine Ratio 18.3 (10-20); Calcium 8.3 mg/dl (8.5-10.1); Creatinine Clr Calc Pharmacy 110.5 ml/min; Est GFR (African American) 104.5; Est GFR (Non-African American) 90.2; Potassium 3.6 mmol/L (3.5-5.1)
[2020-12-17] MEDS ORDERED: MoRPHine SULFATE 2 MG/ML CARP IV PRN (08:33)
[2020-12-17] MEDS ORDERED: ACETAMINOPHEN 325 MG TAB PO PRN (08:33)
[2020-12-17] MEDS ORDERED: oxyCODONE HCL IR 5 MG TAB (IMMEDIATE RELEASE) PO PRN (08:33)
--- NOTE | 2020-12-17 08:38 | Surgery Progress Note ---
Date of Service December 17, 2020 Assessment & Plan (1) Status post colostomy takedown: POD#4 colostomy takedown Patient is overall doing well WBC 7, Hb.6, Cr: 0.93 Will decrease IVF rate NGT removed yesterday. He is starting to pass flatus, will advance to clear liquids this AM Not using CIGARETTE AND FILTER CHIEF INSPECTOR much, will d/c and order IV and PO pain meds prn Continue to ambulate as tolerates Admission and Anticipated Discharge Date Admission Date: December 13, 2020 Supervising Physician Co-Signing Physician Notes As per Augustina Yap physician home based assistant The patient is resting comfortably no abdominal discomfort tolerated liquids this morning without any issues no nausea states passing flatus a small liquid bowel movement The abdomen is benign lower midline incision some drainage at the Mercedez sites which [place] was removed the Nj drainage her right lower quadrant serous slightly sanguinous no enteric juices The colostomy site the packing was removed and repacked with a 4 x 4 gauze dressing applied Overall the patient is doing well we will DC the CIGARETTE AND FILTER CHIEF INSPECTOR tomorrow analgesics keep more clear liquids today and tomorrow if everything is functioning he has bowel movements they would be discharged Operative findings were again discussed with the patient including plans for discharge All questions answered Subjective Patient states he is doing well. Tolerated NGT clamp trial yesterday and was removed. Denies nausea/vomiting. Abdominal pain is under control and he is not using CIGARETTE AND FILTER CHIEF INSPECTOR as much. He states he is passing flatus. Had some liquid bloody stool. Says he has been ambulating. Voiding well. Physical Exam Physical Exam: awake/alert Respiratory: normal respiratory effort Gastrointestinal (Abdomen): Inspection/Auscultation: + abdominal surgical incision (c/d/i, mercedez dressing in place, packing in place in LLQ incision) and + abdominal surgical drain present (serosang.); abdomen not distended Percussion/Palpation: + abdomen tender (mild expected discomfort aure- incisionally) and abdomen soft Results & Data ([facility]) Vital Signs (Past 12 Hours) Vital Signs Temp Pulse Resp BP Pulse Ox 12/17/20 07:33 36.5 C 83 16 132/80 95 12/16/20 23:02 37.3 C 87 16 128/81 94 PG Care Time/CCT Total # of Minutes Spent Total Time Spent with Patient: Total time spent is greater than 50% in coordination of care (as documented) at patient's floor/unit and/or counseling patient: Coding Level of Care Code None Diagnoses Status post colostomy takedown Z98.890
[2020-12-17] MEDS: lisinopril 40 MG TAB PO SCH (09:02)
[2020-12-17] MEDS: amLODIPine BESYLATE 5 MG TAB PO SCH (09:02)
[2020-12-17] MEDS: CHLORTHALIDONE 25 MG TAB PO SCH (09:02)
[2020-12-18] MEDS: HEPARIN SOD 5,000 UNIT/0.5 ML VIAL SQ SCH ×3 (05:36→20:29)
[2020-12-18 05:49] LABS: Basophils # (auto) 0.01 K/uL (0-0.2); Basophils % (auto) 0.1 %; Eosinophils # (auto) 0.27 K/uL (0-0.5); Eosinophils % (auto) 3.6 %; Hematocrit (blood only) 35.9 % (42-52); Hemoglobin 11.9 g/dL (14.0-18.0); Immature Granulocytes # (auto) 0.04 K/uL (0.00-0.02); Immature Granulocytes % (auto) 0.5 %; Lymphocytes # (auto) 1.27 K/uL (1.2-3.4); Lymphocytes % (auto) 16.9 %; Mean Corpuscular Hemoglobin 27.5 pg (25-34); Mean Corpuscular Hgb Conc 33.1 g/dL (32-36); Mean Corpuscular Volume 82.9 fL (80-100); Mean Platelet Volume 8.8 fL (7.4-10.4); Monocytes # (auto) 0.57 K/uL (0.11-0.59); Monocytes % (auto) 7.6 %; Neutrophils # (auto) 5.34 K/uL (1.4-6.5); Neutrophils % (auto) 71.3 %; Platelet Count 305 K/uL (130-400); RDW Coefficient of Variation 14.6 % (11.5-14.5); RDW Standard Deviation 44.2 fL (36.4-46.3); Red Blood Count 4.33 M/uL (4.7-6.1)
[2020-12-18 06:14] LABS: BUN Creatinine Ratio 16.8 (10-20); Calcium 8.7 mg/dl (8.5-10.1); Creatinine Clr Calc Pharmacy 104.8 ml/min; Est GFR (African American) 98.1; Est GFR (Non-African American) 84.6; Potassium 3.4 mmol/L (3.5-5.1)
--- NOTE | 2020-12-18 08:12 | Surgery Progress Note ---
Date of Service December 18, 2020 Assessment & Plan (1) Status post colostomy takedown: At this point I would like for him to wait until he has a good bowel movement she has a little stricture near the anastomosis he states that he has some bloody bowel movement few days after surgery which process likely was related to manipulation by the EEA stapler At this point will increase his diet to a low fiber diet and reevaluate him later today once he moves his bowels that he certainly can be discharged He is agreeable to this All questions were answered Present on Admission?: Yes Admission and Anticipated Discharge Date Admission Date: December 13, 2020 Subjective Feels fine wants more to eat is anxious to go home not take anything for pain in the last 24 hours positive flatus no real bowel movement Physical Exam Physical Exam: Is alert coherent no distress Oropharyngeal area moist The abdomen is completely benign minimal serosanguineous drainage from the colostomy site in the midline lower incision [place] sites The Nj drainage is serous slightly sanguinous no enteric contents Results & Data ([facility]) Vital Signs (Past 12 Hours) Vital Signs Temp Pulse Pulse Resp BP Pulse Ox 12/18/20 07:34 36.6 C 82 82 16 126/87 96 12/17/20 22:26 36.9 C 87 18 143/84 H 95 PG Care Time/CCT Total # of Minutes Spent Total Time Spent with Patient: Total time spent is greater than 50% in coordination of care (as documented) at patient's floor/unit and/or counseling patient: Coding Level of Care Code None Diagnoses Status post colostomy takedown Z98.890
[2020-12-18] MEDS: CHLORTHALIDONE 25 MG TAB PO SCH (08:30)
[2020-12-18] MEDS: amLODIPine BESYLATE 5 MG TAB PO SCH (08:30)
[2020-12-18] MEDS: lisinopril 40 MG TAB PO SCH (08:30)
[2020-12-18] MEDS: POTASSIUM CHLORIDE CRTAB 20 MEQ TABCR PO SCH (20:30)
[2020-12-19] MEDS: HEPARIN SOD 5,000 UNIT/0.5 ML VIAL SQ SCH (05:38)
[2020-12-19 05:58] LABS: Hemoglobin 12.8 g/dL (14.0-18.0); Mean Corpuscular Hemoglobin 27.4 pg (25-34); Mean Corpuscular Hgb Conc 32.8 g/dL (32-36); Mean Corpuscular Volume 83.3 fL (80-100); Mean Platelet Volume 8.7 fL (7.4-10.4); Platelet Count 322 K/uL (130-400); RDW Coefficient of Variation 14.6 % (11.5-14.5); RDW Standard Deviation 44.2 fL (36.4-46.3); Red Blood Count 4.68 M/uL (4.7-6.1); White Blood Count 8.54 K/uL (4.8-10.8)
--- NOTE | 2020-12-19 07:41 | Surgery Progress Note ---
Date of Service December 19, 2020 Assessment & Plan (1) Status post colostomy takedown: Path on the resected colostomy site: It is free of any pathology Patient can be discharged today instructions were given to follow-up in our office on Thursday and plan to leave the Nj drain in at this time he may shower repacked the colostomy site with 4 x 4 gauze he is able to drive on Thursday but do not lift anything heavier than 10 pounds until then regarding analgesics he may take some Motrin or Advil on a as needed basis since he is basically not taken any at this time We will await the potassium level this morning to see whether or not we need to supplement with some oral replacement Patient is instructed to keep a low fiber diet at this time until his bowel movements are normalizing is pretty much back to full activity and at that time go to a high-fiber diet All questions were answered Present on Admission?: Yes Admission and Anticipated Discharge Date Admission Date: December 13, 2020 Subjective Patient is doing very well tolerated low fiber diet yesterday had a solid bowel movement no abdominal discomfort wants to go home Physical Exam Physical Exam: Alert coherent resting comfortable in bed anxious to walk around more Abdomen is completely benign Nj drain right lower quadrant serosanguineous minimal drainage Colostomy site a pack is intact the midline incision healing well with minimal drainage at the [place] drain site No calf tenderness no pedal edema Results & Data ([facility]) Vital Signs (Past 12 Hours) Vital Signs Temp Pulse Resp BP Pulse Ox 12/19/20 07:25 36.8 C 88 18 126/85 96 12/18/20 22:51 36.7 C 84 18 119/74 97 noted we will repeat a PRP started on potassium yesterday for 3.4 we will see if we needs to discharged on some replacement PG Care Time/CCT Total # of Minutes Spent Total Time Spent with Patient: Total time spent is greater than 50% in coordination of care (as documented) at patient's floor/unit and/or counseling patient: Coding Level of Care Code None Diagnoses Status post colostomy takedown Z98.890
[2020-12-19 08:05] LABS: BUN Creatinine Ratio 16.6 (10-20); Calcium 9.6 mg/dl (8.5-10.1); Creatinine Clr Calc Pharmacy 82.2 ml/min; Est GFR (African American) 73.1; Est GFR (Non-African American) 63.1; Potassium 3.5 mmol/L (3.5-5.1)
[2020-12-19] MEDS: amLODIPine BESYLATE 5 MG TAB PO SCH (08:17)
[2020-12-19] MEDS: CHLORTHALIDONE 25 MG TAB PO SCH (08:18)
[2020-12-19] MEDS: lisinopril 40 MG TAB PO SCH (08:18)
[2020-12-19] MEDS: POTASSIUM CHLORIDE CRTAB 20 MEQ TABCR PO SCH (08:18)
--- NOTE | 2020-12-27 10:28 | Coding Query ---
CODING QUERY To promote full compliance with coding requirements relating to patient care, provider participation is requested in all cases of sewer repairer uncertainty. 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 Please specify below, in your clinical opinion, regarding the stricture in the rectosigmoid junction. ( ) stricture in the rectosigmoid junction is a Postoperative Complication (x ) stricture in the rectosigmoid junction is Not a Postoperative Complication ( ) Other: Please Specify Physician's Response(s): Thank you Su Mack Principal Diagnosis: "that condition established after study, to be chiefly responsible for occasioning the admission of the patient to the hospital for care." Co-Existing Principal Diagnosis: "when two or more diagnoses equally meet the criteria for principal diagnosis as determined by the circumstances of admission, diagnostic work up, and/or therapy provided, and the Alphabetic Index, Tabular List, or another coding guideline does not provide sequencing direction, any one of the diagnoses may be sequenced first." "When the physician has documented what appears to be a current diagnosis in the body of the record, but has not included the diagnosis in the final diagnostic statement, the physician should be asked whether the diagnosis should be added." (Source [facility] 2 QTR90. p3-4) ANIBAL
--- NOTE | 2020-12-27 14:33 | Discharge Summary ---
Date of Service December 27, 2020 Principal Diagnosis Colostomy for perforated diverticulitis Discharge Exam Gastrointestinal (Abdomen) Inspection/Auscultation: + abdominal surgical incision (ostomy wound packed) and + abdominal surgical drain present (Nj drain) Discharge Data Allergies Allergy/AdvReac Type Severity Reaction Status Date / Time No Known Allergies Allergy Verified 12/24/20 09:47 Procedures Performed Operation Date: 12/13/20 09:10 Actual Procedures p Laparoscopic-Assisted Closure of Colostomy, Partial Sigmoid Colon Resection, Lysis of Adhesions, Intraoperative Sigmiodoscopy(Not Applicable) - Allan Corea MD Hospital Course (1) Status post colostomy takedown: 60 y/o male with history of perforated diverticulitis was taken to the operating room for colostomy takedown. He was admitted to the surgical floor. Antibiotics were continued for 24 hours and subQ heparin was used for DVT prophylaxis. Hernandez was removed on POD 2. NG tube was continued until day 3. He was passing flatus by day 4 and was started on liquid diet. He was able to advance diet over the next 2 days and was having bowel movements by day 6. He was stable for discharge home at that time with drain to be removed in the office in a few days. Total Time Total Time Spent Total Time Spent (In Minutes): 15 Discharge Plan Discharge Items Patient Disposition: Home - Self-Care Reason For Visit: Diverticulitis, Colostomy in Place Discharge Diagnosis: colostomy takedown Activity: Per Instructions section Lifting: No more than 10 pounds Bathing Comment: may shower; no soaking in tubs/pools Exercise/Sports: Wait until after follow-up appointment Driving/Machine Use: You may resume driving this upcoming thursday12/24/20 Non-emergency contact: Surgeon Call non-emergency contact if: you have any medication questions, your symptoms worsen, your pain is not controlled, your pain is worsening, your pain is unusual for you, your pain is concerning for you, you have a fever, your wound has increased redness, your wound has increased drainage and your wound pain has increased Follow-up/Referrals: Allan Corea MD [Surgeon] - 12/25/20 9:00 am Zaida Leroy PA-C [Primary Care Provider] - Diet: Low Fiber Addtl Attending Provider Instructions: Please remain on a low fiber diet until your bowel movements normalize You have surgical jalen and sutures in place that will be removed at one of your follow up appointments Please pack the left lower abdominal wound with wet to dry 4x4 gauze daily. Cover with dry 4x4 gauze and adhere with medical tape Please care for your CLOVER drain as you have been instructed prior to discharge from the hospital. Empty drain 2-3 times a day as needed and record output. You may purchase Tylenol and/or Ibuprofen over the counter if needed for pain control. -Tylenol 650mg orally every 4-6 hours, as needed for pain. Do NOT exceed more than 3grams of Acetaminophen within 24 hours. - Ibuprofen 200mg-600mg orally every 6-8 hours, as needed for pain. Take with food. Please call the office to schedule follow up with Dr. Corea next 12/24/20. Pending Studies at Discharge: No Stand-Alone Forms: My [facility] [employer] [facility] Smoking Cessation Medications and DC Order Prescriptions: Continued atorvastatin 20 mg Tablet 20 mg PO HS RF: 0 chlorthalidone 25 mg Tablet 25 mg PO QAM RF: 0 amlodipine 5 mg Tablet 5 mg PO QAM RF: 0 lisinopril 40 mg Tablet 40 mg PO QAM RF: 0 Discontinued metronidazole [Flagyl] 500 mg tablet 500 mg PO .COMPLEX Qty: 3 RF: 0 neomycin 500 mg tablet 1 g PO .COMPLEX Qty: 6 RF: 0 Discharge Orders: Discharge Order (Routine); Ordered 12/19/20 Ordered By: Augustina Camacho/Other Patient Handouts: Low-Fiber Diet, Discharge Instructions Caring for ..., High Fiber Diet Dc Admission Data Admit Date/Time: 12/13/20 14:42 Attending Provider: Allan Corea Admit Provider: Allan Corea Primary Care Provider: Zaida Leroy Other Interventions: Discharge Summary Assessment (RN) Last Done: 12/19/20 09:06 Coding Level of Care Code D/C Day Management <30 mins Diagnoses Status post colostomy takedown Z98.890
== END 2020-12-19 11:02 | disposition home or self-care (01) | DRG 330 ==
LOC: ASU 06:51 → 3N 14:42